=== PATIENT | female | born 1950 | race Caucasian/White ===

== ENCOUNTER 2020-05-13 14:44 | Outpatient (REF) | payer MEDICARE, OTHER, SELFPAY ==
--- NOTE | 2020-05-13 15:01 | XR_ITS ---
EXAMINATION: XR CHEST CLINICAL INFORMATION: Emphysema. COMPARISON: Chest x-ray 06/04/2018. CT scan of the chest 05/06/2019. TECHNIQUE: PA and lateral views of the chest were obtained. FINDINGS: The lung rice are well expanded and appear clear bilaterally. The cardiac silhouette is normal. There are no pleural effusions or pneumothorax. The central pulmonary vasculature is normal. The hilar regions appear normal. There are cholecystectomy clips, new compared to prior imaging. There are no acute osseous findings. There are spondylitic changes in the thoracic spine. IMPRESSION: 1. There are no acute cardiopulmonary findings.
== END 2020-05-13 14:45 | disposition home or self-care (01) ==
LOC: HO.XRAY 14:44
PROVIDERS: PCP Internal Medicine; Visit Provider Internal Medicine
DX: J43.9 Emphysema, unspecified (principal)
CPT/HCPCS: 71046

== ENCOUNTER → 2020-05-24 09:31 | Outpatient (BNVA) | payer MEDICARE, OTHER, SELFPAY | PROVIDERS: PCP Internal Medicine; Referring Provider Internal Medicine; Visit Provider Nurse Practitioner Family | DX: I25.10 Atherosclerotic heart disease of native coronary artery without angina pectoris (principal); I10 Essential (primary) hypertension; E78.5 Hyperlipidemia, unspecified; Z79.82 Long term (current) use of aspirin; Z79.899 Other long term (current) drug therapy; Z95.5 Presence of coronary angioplasty implant and graft | CPT/HCPCS: 99214 ==

== ENCOUNTER 2020-05-26 07:18 | Outpatient (REF) | payer MEDICARE, OTHER, SELFPAY ==
--- NOTE | 2020-05-26 07:23 | CT_ITS ---
EXAMINATION: CT CHEST WITHOUT CONTRAST CLINICAL INFORMATION: Solitary pulmonary nodule COMPARISON: None TECHNIQUE: Multidetector volumetric CT imaging of the chest was done. Axial MIP volume rendering provided. Sagittal and coronal reformatted images were obtained. This CT examination was performed using dose optimization techniques as appropriate, variously including the following: *Automated exposure control *Adjustment of mA and/or kV according to patient size (this includes techniques or standardized protocols for targeted exams where dose is matched to indication/reason for exam; i.e. 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 There are bilateral small pulmonary nodules. The largest nodule in the right middle lobe adjacent to the fissure measures 9 mm on axial image 318/8. Previously it measured same size. Mild atelectatic changes are seen MEDIASTINUM: The heart size and the great vessels are normal caliber. Central trachea and the bronchi are widely patent. The thyroid lobes are symmetrical and normal. No abnormal size mediastinal or hilar lymph nodes seen. There is no pericardial effusion. There are coronary artery calcifications present. PLEURA: There is no pleural effusion. No pleural mass or thickening. AXILLA: There are no abnormal-sized axillary lymph nodes seen. The chest wall appears unremarkable. UPPER ABDOMEN: There is a 7 mm hypodensity right hepatic lobe along the diaphragm, image 49/4. No additional lesions seen. There is no intrahepatic ductal dilatation. Visualized spleen, pancreas and bilateral adrenal glands appear unremarkable. The gallbladder has been surgically removed. OSSEOUS STRUCTURES: There is mild ventral spondylosis throughout dorsal spine. No lytic or sclerotic process seen. IMPRESSION: 1. Stable pulmonary nodules with the largest nodule measuring 9 mm, right middle lobe adjacent to the fissure. No new nodules, mass or consolidation. 2. No abnormal mediastinal adenopathy. 3. The gallbladder has been surgically removed.
== END 2020-05-26 07:19 | disposition home or self-care (01) ==
LOC: HO.CT 07:18
PROVIDERS: PCP Internal Medicine; Visit Provider Surgery
DX: R91.1 Solitary pulmonary nodule (principal)
CPT/HCPCS: 71250

== ENCOUNTER → 2020-05-28 09:22 | Outpatient (BNVA) | payer MEDICARE, OTHER, SELFPAY | PROVIDERS: PCP Internal Medicine; Referring Provider Internal Medicine; Visit Provider Surgery | DX: R91.1 Solitary pulmonary nodule (principal); Z88.8 Allergy status to other drugs, medicaments and biological substances; Z79.82 Long term (current) use of aspirin; Z79.899 Other long term (current) drug therapy; Z87.891 Personal history of nicotine dependence | CPT/HCPCS: 99214 ==

== ENCOUNTER → 2020-06-09 15:40 | Outpatient (BNVA) | payer MEDICARE, OTHER, SELFPAY | PROVIDERS: PCP Internal Medicine; Visit Provider Internal Medicine | DX: R91.8 Other nonspecific abnormal finding of lung field (principal); R94.2 Abnormal results of pulmonary function studies; Z95.5 Presence of coronary angioplasty implant and graft | CPT/HCPCS: 99212 ==

== ENCOUNTER 2020-08-10 05:58 | Outpatient (REF) | payer MEDICARE, OTHER, SELFPAY ==
[2020-08-10 07:01] LABS: MANUAL DIFF FLAG NO
[2020-08-10 07:22] LABS: Basophils Percent Auto 0.6 % (0-2); Eosinophils Absolute Auto 0.2 X10*3/uL (0.0-0.4); Eosinophils Percent Auto 2.7 % (0-4); Hematocrit 41.3 % (37-47); Hemoglobin 13.6 g/dl (12.0-16.0); Lymphocytes Absolute Auto 2.9 X10*3/uL (1.2-4.9); Lymphocytes Percent Auto 45.1 % (20-40); Mean Corpuscular HGB Conc 32.9 g/dl (31.0-35.0); Mean Corpuscular Hemoglobin 31.1 pg (27.0-33.0); Mean Corpuscular Volume 94.3 fL (80-98); Mean Platelet Volume 11.5 fL (9.4-12.3); Monocytes Absolute Auto 0.6 X10*3/uL (0.1-1.2); Monocytes Percent Auto 8.8 % (2-11); Neutrophils Absolute Auto 2.7 X10*3/uL (2.0-8.3); Neutrophils Percent Auto 42.8 % (45-73); Platelet Count 191 X10*3/uL (160-400); Red Blood Count 4.38 X10*6/uL (4.20-5.50); Red Cell Distribution Width 12.7 % (11.0-16.0); White Blood Count 6.4 X10*3/uL (4.8-10.8)
[2020-08-10 07:44] LABS: Alanine Aminotransferase 17 U/L (0-31); Albumin Level 4.5 g/dL (3.5-5.0); Alkaline Phosphatase 74 U/L (39-117); Anion Gap 12 (12-20); Aspartate Amino Transferase 18 U/L (5-31); Bilirubin Total 2.1 mg/dL (0.0-1.0); Blood Urea Nitrogen 20 mg/dL (9-16); Calcium 9.5 mg/dL (8.4-10.2); Carbon Dioxide 31 mmol/L (22-29); Chloride 104 mmol/L (96-108); Cholesterol 148 mg/dL; Estimated Glomerular Filt Rate 50; Glucose Random 96 mg/dL (60-115); HDL Cholesterol 59 mg/dL; LDL Cholesterol Calculated 77 mg/dl; Sodium 142 mmol/L (135-145); Total Protein 6.8 g/dL (6.5-8.0); Triglycerides 62 mg/dL
[2020-08-10 07:49] LABS: Free T4 (Free Thyroxine) 0.94 ng/dL (0.71-1.85); Thyroid Stimulating Hormone 3.11 uIU/mL (0.32-4.0); Vitamin D 25-OH Total 49.8 ng/mL (>30)
[2020-08-10 08:23] LABS: Folate > 20.0 ng/mL (> or = 4.0); Vitamin B12 > 2000 pg/mL (200-900)
== END 2020-08-10 05:59 | disposition home or self-care (01) ==
LOC: HO.LAB 05:58
PROVIDERS: Visit Provider Internal Medicine
DX: E78.00 Pure hypercholesterolemia, unspecified (principal); I25.10 Atherosclerotic heart disease of native coronary artery without angina pectoris; E78.5 Hyperlipidemia, unspecified; I10 Essential (primary) hypertension
CPT/HCPCS: 36415; 80053; 80061; 82306; 82607; 82746; 84439; 84443; 85025

== ENCOUNTER 2020-09-06 09:10 | Outpatient (REF) | payer MEDICARE, OTHER, SELFPAY ==
--- NOTE | 2020-09-06 09:16 | US_ITS ---
EXAMINATION: US ABDOMEN COMPLETE CLINICAL INFORMATION: Elevated bilirubin. COMPARISON: Previous abdominal ultrasound August [address] most recent May 2020 TECHNIQUE: Real-time imaging of the abdominal viscera. FINDINGS: PANCREAS: The head and body the pancreas are normal. The tail is not well visualized due to bowel gas. ABDOMINAL AORTA: The proximal, mid, and distal segments are normal in caliber. There is evidence of atherosclerotic disease with vessel wall calcification of the distal abdominal aorta. INFERIOR VENA CAVA: Visualized portions are normal. LIVER: Liver echotexture is slightly increased. The liver is normal in size and contour.. No focal hepatic lesion. There is no intrahepatic biliary duct dilatation seen. GALLBLADDER: Normal. The gallbladder is physiologically distended without evidence of stones, sludge, polyps, wall thickening or pericholecystic fluid. COMMON BILE DUCT: Normal in caliber measuring 0.5 cm in diameter. RIGHT KIDNEY: Normal. No hydronephrosis. No renal calculi or focal parenchymal lesions. The kidney measures 10 cm in maximum dimension. LEFT KIDNEY: Normal. No hydronephrosis. No renal calculi or focal parenchymal lesions. The kidney measures 10 cm in maximum dimension. SPLEEN: Normal. The spleen measures 10 cm in maximum dimension. FREE FLUID: None. US/US abdomen complete IMPRESSION: Slightly echogenic liver. The liver does not appear low in attenuation to suggest fatty infiltration on previous chest CT May 2020 and hepatocellular disease should be considered.. Atherosclerotic disease. Limited visualization of the tail the pancreas.
== END 2020-09-06 09:11 | disposition home or self-care (01) ==
LOC: HO.US 09:10
PROVIDERS: PCP Internal Medicine; Visit Provider Internal Medicine
DX: E80.6 Other disorders of bilirubin metabolism (principal)
CPT/HCPCS: 76700

== ENCOUNTER → 2020-10-25 14:44 | Outpatient (BNVA) | payer MEDICARE, OTHER, SELFPAY | PROVIDERS: PCP Internal Medicine; Visit Provider Physician Assistant | DX: Z13.89 Encounter for screening for other disorder (principal) | CPT/HCPCS: Q3014 ==

== ENCOUNTER → 2020-12-09 14:18 | Outpatient (BNVA) | payer MEDICARE, OTHER, SELFPAY | PROVIDERS: PCP Internal Medicine; Referring Provider Internal Medicine; Visit Provider Internal Medicine Cardiovascular Disease | DX: I25.10 Atherosclerotic heart disease of native coronary artery without angina pectoris (principal); I10 Essential (primary) hypertension; E78.5 Hyperlipidemia, unspecified; E78.00 Pure hypercholesterolemia, unspecified; I48.0 Paroxysmal atrial fibrillation; Z88.8 Allergy status to other drugs, medicaments and biological substances; Z87.891 Personal history of nicotine dependence; Z79.899 Other long term (current) drug therapy | CPT/HCPCS: 99212 ==

== ENCOUNTER 2021-04-22 07:52 | Day surgery (SDC) | payer MEDICARE, OTHER, SELFPAY ==
[2021-04-18 14:05] VITALS: BMI 28.6
--- NOTE | 2021-04-21 09:05 | HO.ANESPROP2 ---
Documented by User: Lizzette Hare NP 04/21/21 09:07 HPI - Anesthesia Eval Consult details Narrative: 71yo F for Upper Endoscopy and Colonoscopy PMFSH Active Problems Active Problems: All Active Problems (Updated 04/18/21 @ 13:52 by Lynn Alonso, WIL) Pulmonary nodule (Acute) GERD (gastroesophageal reflux disease) (Acute) Annual physical exam (Acute) Colon cancer screening (Acute) Right lower quadrant abdominal pain (Acute) Hyperbilirubinemia (Acute) Acid reflux (Acute) Anxiety (Acute) Stented coronary artery (Acute) HLD (hyperlipidemia) (Acute) HTN (hypertension) (Acute) PVD (peripheral vascular disease) (Acute) CAD (coronary artery disease) (Acute) Past Medical History Medical History Acid reflux Anxiety CAD (coronary artery disease) HLD (hyperlipidemia) HTN (hypertension) Paroxysmal atrial fibrillation PVD (peripheral vascular disease) Family History Family History Father Sudden cardiac CVD (cardiovascular disease) Mother Stroke HTN (hypertension) Myocardial infarction Surgical History Surgical History Hx of breast biopsy (~2008) Hx of cardiac cath Hx of cholecystectomy (~2018) Hx of colonoscopy Stented coronary artery Social History Social History Household Members: Spouse Alcohol intake: current Alcohol intake frequency: holidays/special occasions only Alcohol type: wine Patient Tobacco Use Status: Former Tobacco user Tobacco use type: Cigarette Use of substances other than those prescribed or required for medical reasons: No Are you DNR?: No Advance Directives: No (unknown) Advance Directives Information Provided: No Current occupational status: retired Meds Allergies Allergy/AdvReac Type Severity Reaction Status Date / Time lisinopril [LISINOPRIL] AdvReac Intermediate COUGH Verified 10/25/20 14:45 Mgibnmo-Afv-Ucn Reductase AdvReac Intermediate MUSCLE Verified 10/25/20 14:45 Inhibitor ACHES [[id number] REDUCTASE INHIBITOR] ticagrelor [Brilinta] AdvReac Intermediate Shortness Verified 04/18/21 14:00 of Breath Home Medications Medication Instructions Recorded Confirmed Last Taken Type aspirin 81 mg tablet,delayed 81 mg PO DAILY 05/24/20 04/18/21 Unknown History release (Adult Low Dose Aspirin) nitroglycerin 0.4 mg sublingual 0.4 mg SUBLINGUAL PER PKG DIR PRN 05/24/20 04/18/21 Unknown History tablet cholecalciferol (vitamin D3) 50 50 mcg PO DAILY 06/09/20 04/18/21 Unknown History mcg (2,000 unit) capsule krill oil 500 mg capsule 500 mg PO DAILY cap 06/09/20 04/18/21 Unknown History multivitamin (Daily Multi-Vitamin) 1 tab PO DAILY 06/09/20 04/18/21 Unknown History alprazolam 0.5 mg tablet 0.5 mg PO BID PRN tab 12/09/20 04/18/21 Unknown History Exam Exam Date and Time: April 21, 2021 0905 Height,Weight and Vital Signs: Height 5 ft 7 in Weight 83 kg Pertinent Lab Results Pertinent Lab Results: Laboratory Tests 08/10/20 08/10/20 06:08 06:08 WBC 6.4 Hgb 13.6 Hct 41.3 Plt Count 191 Sodium 142 Potassium 5.0 Chloride 104 Carbon Dioxide 31 H BUN 20 H Creatinine 1.08 Narrative Narrative: Per cardiac visit: Coronary artery disease status post drug-eluting stent to RCA in July 2018 with recent cardiac catheterization showing patent stents and nonobstructive CAD.? Her symptoms were suspected to be related to anxiety as she says. Assessment and Plan Assessment Anesthesia Assessment: Chart Reviewed Documented by User: Anny Rosado MD 04/22/21 08:26 [facility] Past Medical History Medical History Acid reflux Anxiety CAD (coronary artery disease) HLD (hyperlipidemia) HTN (hypertension) Paroxysmal atrial fibrillation PVD (peripheral vascular disease) Family History Family History Father Sudden cardiac CVD (cardiovascular disease) Mother Stroke HTN (hypertension) Myocardial infarction Surgical History Surgical History Hx of breast biopsy (~2008) Hx of cardiac cath Hx of cholecystectomy (~2019) Hx of colonoscopy Stented coronary artery Social History Social History Household Members: Spouse Alcohol intake: current Alcohol intake frequency: holidays/special occasions only Alcohol type: wine Patient Tobacco Use Status: Former Tobacco user Tobacco use type: Cigarette Use of substances other than those prescribed or required for medical reasons: No Are you DNR?: No Advance Directives: No (unknown) Advance Directives Information Provided: No Current occupational status: retired Meds Allergies Allergy/AdvReac Type Severity Reaction Status Date / Time lisinopril [LISINOPRIL] AdvReac Intermediate COUGH Verified 10/25/20 14:45 Izlnafv-Dwj-Rmq Reductase AdvReac Intermediate MUSCLE Verified 10/25/20 14:45 Inhibitor ACHES [[id number] REDUCTASE INHIBITOR] ticagrelor [Brilinta] AdvReac Intermediate Shortness Verified 04/18/21 14:00 of Breath Home Medications Medication Instructions Recorded Confirmed Last Taken Type aspirin 81 mg tablet,delayed 81 mg PO DAILY 05/24/20 04/18/21 Unknown History release (Adult Low Dose Aspirin) nitroglycerin 0.4 mg sublingual 0.4 mg SUBLINGUAL PER PKG DIR PRN 05/24/20 04/18/21 Unknown History tablet cholecalciferol (vitamin D3) 50 50 mcg PO DAILY 06/09/20 04/18/21 Unknown History mcg (2,000 unit) capsule krill oil 500 mg capsule 500 mg PO DAILY cap 06/09/20 04/18/21 Unknown History multivitamin (Daily Multi-Vitamin) 1 tab PO DAILY 06/09/20 04/18/21 Unknown History alprazolam 0.5 mg tablet 0.5 mg PO BID PRN tab 12/09/20 04/18/21 Unknown History
[2021-04-22 08:08] VITALS: BP 135/72; PULSE 72; RESP 16; TEMP 36.1; O2SAT 97
[2021-04-22] MEDS: Lactated Ringers 1,000 ML 100 ML IVCONT (08:25)
--- NOTE | 2021-04-22 08:28 | P.CONAN_ITS ---
[facility] Active Problems Active Problems: All Active Problems (Updated 04/18/21 @ 13:52 by Lynn barrera RN) Pulmonary nodule (Acute) GERD (gastroesophageal reflux disease) (Acute) Annual physical exam (Acute) Colon cancer screening (Acute) Right lower quadrant abdominal pain (Acute) Hyperbilirubinemia (Acute) Acid reflux (Acute) Anxiety (Acute) Stented coronary artery (Acute) HLD (hyperlipidemia) (Acute) HTN (hypertension) (Acute) PVD (peripheral vascular disease) (Acute) CAD (coronary artery disease) (Acute) Past Medical History Medical History Acid reflux Anxiety CAD (coronary artery disease) HLD (hyperlipidemia) HTN (hypertension) Paroxysmal atrial fibrillation PVD (peripheral vascular disease) Functional capacity: independent ambulation Patient : No Family History Family History Father Sudden cardiac CVD (cardiovascular disease) Mother Stroke HTN (hypertension) Myocardial infarction Family history of problems with anesthesia: No Surgical History Surgical History Hx of breast biopsy (~2008) Hx of cardiac cath Hx of cholecystectomy (~2018) Hx of colonoscopy Stented coronary artery History of Problems with Anesthesia: No Social History Social History Household Members: Spouse Alcohol intake: current Alcohol intake frequency: holidays/special occasions only Alcohol type: wine Patient Tobacco Use Status: Former Tobacco user Tobacco use type: Cigarette Use of substances other than those prescribed or required for medical reasons: No Are you DNR?: No Advance Directives: No (unknown) Advance Directives Information Provided: No Current occupational status: retired Meds Allergies Allergy/AdvReac Type Severity Reaction Status Date / Time lisinopril [LISINOPRIL] AdvReac Intermediate COUGH Verified 10/25/20 14:45 Ulqigxk-Uei-Dqr Reductase AdvReac Intermediate MUSCLE Verified 10/25/20 14:45 Inhibitor ACHES [[id number] REDUCTASE INHIBITOR] ticagrelor [Brilinta] AdvReac Intermediate Shortness Verified 04/18/21 14:00 of Breath Active Medications: Current Medications Generic Name Dose Route Start Last Admin Trade Name Hugo PRN Reason Stop Dose Admin Lactated Ringer's 1,000 mls @ 100 mls/hr 04/22/21 08:30 04/22/21 08:25 Lr IVCONT 100 mls/hr .Q10H RADHA Administration Home Medications Medication Instructions Recorded Confirmed Last Taken Type aspirin 81 mg tablet,delayed 81 mg PO DAILY 05/24/20 04/18/21 Unknown History release (Adult Low Dose Aspirin) nitroglycerin 0.4 mg sublingual 0.4 mg SUBLINGUAL PER PKG DIR PRN 05/24/20 04/18/21 Unknown History tablet cholecalciferol (vitamin D3) 50 50 mcg PO DAILY 06/09/20 04/18/21 Unknown History mcg (2,000 unit) capsule krill oil 500 mg capsule 500 mg PO DAILY cap 06/09/20 04/18/21 Unknown History multivitamin (Daily Multi-Vitamin) 1 tab PO DAILY 06/09/20 04/18/21 Unknown History alprazolam 0.5 mg tablet 0.5 mg PO BID PRN tab 12/09/20 04/18/21 Unknown History Exam Exam Date and Time: April 22, 2021 0828 Height,Weight and Vital Signs: Height 5 ft 7 in Weight 83 kg Last Vital Signs Temp 97.0 F 04/22/21 08:08 Pulse 72 04/22/21 08:08 Resp 16 04/22/21 08:08 BP 135/72 04/22/21 08:08 Pulse Ox 97 04/22/21 08:08 Airway Mallampati Class: II TM Dist: >3cm Heart: RRR Lungs: CTA Assessment and Plan Final Anesthetic Review Family History of Problems with Anesthesia: No History of Problems with Anesthesia: No
--- NOTE | 2021-04-22 08:35 | MHC.SHP ---
Pre-Procedural Eval Section A Date of Service: 04/22/21 The patient is an INPATIENT: No The History & Physical has been completed within 30 days and I have reviewed it.: No Section B Chief Complaint: Colon cancer Screening, GERD Details of Present Illness: Colon cancer screening, GERD, abdominal pain Relevant Family History (Specify if Yes): No Relevant Social History: Tobacco Use (former smoker) Present Medications: see Short Stay Collaborative assessment Medical History: Significant History (Acid reflux Anxiety CAD (coronary artery disease) GERD (gastroesophageal reflux disease) HLD (hyperlipidemia) HTN (hypertension) Paroxysmal atrial fibrillation PVD (peripheral vascular disease)) History of Previous Operations: Relevant previous surgery/procedure and date(s) (Hx of breast biopsy (~2008) Hx of cardiac cath Hx of cholecystectomy (~2018) Hx of colonoscopy S/P cardiac cath Stented coronary artery) Allergies: Allergies Allergy/AdvReac Type Severity Reaction Status Date / Time lisinopril [LISINOPRIL] AdvReac Intermediate COUGH Verified 10/25/20 14:45 Hkwilth-Qwq-Jsu Reductase AdvReac Intermediate MUSCLE Verified 10/25/20 14:45 Inhibitor ACHES [[id number] REDUCTASE INHIBITOR] ticagrelor [Brilinta] AdvReac Intermediate Shortness Verified 04/18/21 14:00 of Breath Review of Systems Sugical H&P ROS: Negative: Constitution, Cardiovascular and Respiratory and Yes, Specify: Gastrointestinal (GERD, abdominal pain) Exam Surgical H&P Exam: Normal: Heart, Normal: Lungs, Normal: Extremities and Normal: Abdomen Plan Diagnosis/Plan: Unchanged I have reviewed the history and physical and performed a pertinent physical examination on my patient. No changes have occurred unless specified.
--- NOTE | 2021-04-22 08:37 | PM.OP ---
Brief Operative Note Date of Service: 04/22/21 Pre-op diagnosis: Colon cancer screening, GERD, abdominal pain Post-op diagnosis: other (Diverticulosis, hemorrhoids, gastritis, GERD, gastric polyps) Procedure: FLEXIBLE TRANSORAL UPPER GASTROINTESTINAL ENDOSCOPY WITH BIOPSIES AND COLONOSCOPY TILL CECUM UPPER ENDOSCOPY Consent: Indications for the procedure and potential complications of bleeding, perforation, reaction to medications and missed diagnosis were discussed with the patient and informed consent was obtained. Instrument: Olympus GIF H 190 mid size upper endoscope Monitoring: Vital signs and clinical assessment, continuous EKG monitoring, Pulse oximetry, Carbon Dioxide monitoring and blood pressure monitoring were done throughout the procedure. Procedure: The patient was placed in the left lateral decubitis position and pre-procedure medications were administered and a bite block was placed. The endoscope was inserted into the mouth and advanced under direct vision to the third part of duodenum. A careful inspection was made as the upper endoscope was withdrawn including a retroflexed examination of the proximal stomach; Findings and interventions are described below. Findings: Larynx: Normal Esophagus: Mildly tortuous esophagus with increased tertiary contractions without stricture or ring. GE junction at 35 cms.. No esophagitis or Mix's. Stomach: Multiple 5 to 10 mm benign appearing polyps in the gastric body and fundus - biopsied. Mild gastric erythema. Biopsies were obtained. Grade 2 flap valve on retroflexed examination of the cardia. Duodenum: Normal bulb and descending duodenum. Biopsies were obtained from 3rd part of the duodenum to check for celiac sprue. Intervention: Biopsies as noted above COLONOSCOPY PROCEDURE NOTE Consent: Indications for the procedure and potential complications of bleeding, perforation, reaction to medications and missed diagnosis were discussed with the patient and informed consent was obtained. Instrument: Olympus PCF H 190 L variable stiffness pediatric colonoscope Monitoring: Vital signs and clinical assessment, intermittent blood pressure monitoring, continuous EKG monitoring, Pulse oximetry and Carbon Dioxide monitoring were done throughout the procedure. Colon withdrawl time was 14 minutes. Procedure: The patient was placed in the left lateral decubitis position and pre-procedure medications were administered. After a digital rectal examination of the ano-rectum, the video colonoscope was inserted into the rectum and advanced through the colon to the cecum. The colonoscope was slowly withdrawn in a retrograde panoramic fashion and the colon mucosa was carefully examined including a retroflexed view of the rectum. Findings and interventions are described below. Procedure Difficulty: : Without difficulty Findings: Terminal Ileum: Not evaluated Cecum: Normal Ascending Colon: Normal Transverse Colon: Normal Descending Colon: Moderate diverticulosis Sigmoid Colon: Moderate diverticulosis Rectum: Normal Ano-rectum: Moderate internal hemorrhoids and perianal skin tags Colon preparation: Good Impression and Post Procedure Diagnosis: Endoscopy Findings: ESOPHAGUS: No esophagitis or Mix's STOMACH: Gastritis and multiple gastric polyps DUODENUM: Normal - biopsied to check for celiac sprue Colonoscopy Findings: No polyps were detected Moderate diverticulosis seen in the left colon Moderate hemorrhoids on retroflexed exam. Plan: Await pathology results Patient has an appointment on 05/05/21 in the GI Clinic with TORO Cueva . Repeat Colonoscopy in 10 years. Above findings were reviewed with the patient and GERD, Gastric Polyps and diverticulosis handouts were given in the discharge area Surgeon: Merari Carrasco MD Anesthesia: MAC (Braxton Mccabe CRNA) Was an Medical Recruiter used for this Procedure?: No Medical Recruiter: Whitney Rowland Estimated blood loss (mL): 0 Pathology: other ( A. small bowel biopsy, R/O Celiac B. gastric antrum, R/O H. pylori C. gastric polyps) Condition: stable Disposition: PACU
--- NOTE | 2021-04-22 09:04 | P.OP_ITS ---
Operative Note Operative Note Date of Service: 04/22/21 Narrative: Pre-op diagnosis:?Colon cancer screening, GERD, abdominal pain Post-op diagnosis:?other (Diverticulosis, hemorrhoids, gastritis, GERD, gastric polyps) Procedure:? FLEXIBLE TRANSORAL UPPER GASTROINTESTINAL ENDOSCOPY WITH BIOPSIES AND COLONOSCOPY TILL CECUM UPPER ENDOSCOPY Consent:?Indications for the procedure and potential complications of bleeding, perforation, reaction to medications and missed diagnosis were discussed with the patient and informed consent was obtained. Instrument:?Olympus GIF H 190 mid size upper endoscope Monitoring: Vital signs and clinical assessment, continuous EKG monitoring, Pulse oximetry, Carbon Dioxide monitoring and blood pressure monitoring were done throughout the procedure. Procedure:?The patient was placed in the left lateral decubitis position and pre-procedure medications were administered and a bite block was placed. The endoscope was inserted into the mouth and advanced under direct vision to the third part of duodenum. A careful inspection was made as the upper endoscope was withdrawn including a retroflexed examination of the proximal stomach; Findings and interventions are described below. Findings: Larynx:? Normal Esophagus:? Mildly tortuous esophagus with increased tertiary contractions without stricture or ring.??GE junction at 35 cms.. No esophagitis or Mix's. Stomach:?Multiple 5 to 10 mm benign appearing polyps in the gastric body and fundus - biopsied.? Mild gastric erythema. Biopsies were obtained. Grade 2 flap valve on retroflexed examination of the cardia. Duodenum:?Normal bulb and descending duodenum.? Biopsies were obtained from 3rd part of the duodenum to check for celiac sprue. Intervention:?Biopsies as noted above COLONOSCOPY PROCEDURE NOTE Consent:?Indications for the procedure and potential complications of bleeding, perforation, reaction to medications and missed diagnosis were discussed with the patient and informed consent was obtained. Instrument:?Olympus PCF H 190 L variable stiffness pediatric colonoscope Monitoring:?Vital signs and clinical assessment, intermittent blood pressure monitoring, continuous EKG monitoring, Pulse oximetry and Carbon Dioxide monitoring were done throughout the procedure. Colon withdrawl time was 14 minutes. Procedure:?The patient was placed in the left lateral decubitis position and pre-procedure medications were administered. After a digital rectal examination of the ano-rectum, the video colonoscope was inserted into the rectum and advanced through the colon to the cecum. The colonoscope was slowly withdrawn in a retrograde panoramic fashion and the colon mucosa was carefully examined including a retroflexed view of the rectum. Findings and interventions are described below. Procedure Difficulty:?: Without difficulty Findings: Terminal Ileum: Not evaluated Cecum:? Normal Ascending Colon:??Normal Transverse Colon:??Normal Descending Colon:? Moderate diverticulosis Sigmoid Colon:??Moderate diverticulosis Rectum:??Normal Ano-rectum:??Moderate internal hemorrhoids and perianal skin tags Colon preparation:? Good? Impression and Post Procedure Diagnosis: Endoscopy Findings: ESOPHAGUS: No esophagitis or Mix's STOMACH: Gastritis and multiple gastric polyps DUODENUM: Normal - biopsied to check for celiac sprue Colonoscopy Findings: No polyps were detected Moderate diverticulosis seen in the left colon Moderate hemorrhoids on retroflexed exam. Plan: Await pathology results Patient has an appointment on 05/05/21 in the GI Clinic with TORO Cueva . Repeat Colonoscopy in 10 years. Above findings were reviewed with the patient and GERD, Gastric Polyps and diverticulosis handouts were given in the discharge area Surgeon:?Merari Carrasco MD Anesthesia:?MAC (Braxton Mccabe CRNA) Was an Veneer Redrier used for this Procedure?:?No Veneer Redrier:?Whitney Rowland Estimated blood loss (mL):?0 Pathology:?other ( A. small bowel biopsy, R/O Celiac? B. gastric antrum, R/O H. pylori? C. gastric polyps) Condition:?stable Disposition:?PACU
[2021-04-22 09:45] VITALS: BP 112/52; PULSE 63; RESP 15; TEMP 36.6; O2SAT 98
[2021-04-22 10:00] VITALS: BP 120/58; PULSE 62; RESP 16; TEMP 36.6; O2SAT 99
--- NOTE | 2021-04-22 12:03 | HO.POSTANES ---
Post Anesthesia Evaluation Post Anesthesia Evaluation Vital Signs: Vital Signs Temp Pulse Resp BP Pulse Ox 04/22/21 10:00 97.8 F 62 16 120/58 L 99 04/22/21 09:45 97.8 F 63 15 112/52 L 98 04/22/21 08:08 97.0 F 72 16 135/72 97 Anesthesia: Monitored Mental Status: Awake Pain Control: Satisfactory Nausea/Vomiting: None Hydration: Adequate Anesthesia-Related Issues: No Anes. Related Issues
== END 2021-04-22 10:16 | disposition home or self-care (01) ==
PROVIDERS: PCP Internal Medicine; Visit Provider Internal Medicine Gastroenterology
PROC: (CPT 43239; principal; 2021-04-22 09:00)
DX: Z12.11 Encounter for screening for malignant neoplasm of colon (principal); K57.30 Diverticulosis of large intestine without perforation or abscess without bleeding; K64.8 Other hemorrhoids; K64.4 Residual hemorrhoidal skin tags; K21.9 Gastro-esophageal reflux disease without esophagitis; K29.50 Unspecified chronic gastritis without bleeding; K31.7 Polyp of stomach and duodenum; K22.8 Other specified diseases of esophagus; Z87.891 Personal history of nicotine dependence; I25.10 Atherosclerotic heart disease of native coronary artery without angina pectoris; Z98.61 Coronary angioplasty status; I10 Essential (primary) hypertension; I73.9 Peripheral vascular disease, unspecified; I48.0 Paroxysmal atrial fibrillation; Z79.01 Long term (current) use of anticoagulants; Z79.82 Long term (current) use of aspirin; Z79.899 Other long term (current) drug therapy; Z90.49 Acquired absence of other specified parts of digestive tract
CPT/HCPCS: 43239; G0121; 88305; 88342

== ENCOUNTER 2021-05-11 07:26 | Outpatient (REF) | payer MEDICARE, OTHER, SELFPAY ==
--- NOTE | ~2021-05-11 | CT_ITS ---
EXAMINATION: CT CHEST WITHOUT CONTRAST CLINICAL INFORMATION: Follow-up pulmonary nodules COMPARISON: Previous chest CT scans most recent 05/25/2020 TECHNIQUE: Multidetector volumetric CT imaging of the chest was done. Axial MIP volume rendering provided. Sagittal and coronal reformatted images were obtained. This CT examination was performed using dose optimization techniques as appropriate, variously including the following: *Automated exposure control *Adjustment of mA and/or kV according to patient size (this includes techniques or standardized protocols for targeted exams where dose is matched to indication/reason for exam; i.e. extremities or head) *Use of iterative reconstruction technique DLP: 144 mGy-cm FINDINGS: LUNGS: There is mild biapical pleural and parenchymal scarring. There is a 4 mm left apical nodule probably related to pleural parenchymal scarring axial image 41 series 7 that is stable. There is a 6 x 8 mm peripheral or subpleural right middle lobe nodule adjacent to the minor fissure axial image 235 series 7 that is stable. There is a 3 mm peripheral or subpleural right lower lobe nodule axial image 237 series 7 that is stable. No new pulmonary nodule is seen. MEDIASTINUM: There is mild coronary artery calcification. The mediastinum is otherwise normal. PLEURA: There is no pleural effusion. No pleural mass or thickening. AXILLA: No lymphadenopathy. UPPER ABDOMEN: The gallbladder has been removed. OSSEOUS STRUCTURES: There are degenerative changes of the spine. CT/CT chest wo con IMPRESSION: Stable pulmonary nodules. Mild coronary artery calcification.
== END 2021-05-11 07:27 | disposition home or self-care (01) ==
LOC: HO.CT 07:26
PROVIDERS: Visit Provider Surgery
DX: R91.1 Solitary pulmonary nodule (principal)
CPT/HCPCS: 71250

== ENCOUNTER 2021-05-18 06:26 | Outpatient (REF) | payer MEDICARE, OTHER, SELFPAY ==
[2021-05-18 06:32] LABS: MANUAL DIFF FLAG NO
[2021-05-18 07:31] LABS: Basophils Absolute Auto 0.1 X10*3/uL (0.0-0.2); Basophils Percent Auto 0.8 % (0-2); Eosinophils Absolute Auto 0.2 X10*3/uL (0.0-0.4); Eosinophils Percent Auto 3.7 % (0-4); Hematocrit 37.8 % (37-47); Hemoglobin 12.9 g/dl (12.0-16.0); Imm Gran Abs Auto 0.01 X10*3/uL (0.00-0.03); Imm Gran Pct Auto 0.2 % (0.0-0.4); Lymphocytes Absolute Auto 2.5 X10*3/uL (1.2-4.9); Mean Corpuscular HGB Conc 34.1 g/dl (31.0-35.0); Mean Corpuscular Hemoglobin 31.8 pg (27.0-33.0); Mean Corpuscular Volume 93.1 fL (80-98); Mean Platelet Volume 11.5 fL (9.4-12.3); Monocytes Absolute Auto 0.5 X10*3/uL (0.1-1.2); Monocytes Percent Auto 7.8 % (2-11); Neutrophils Absolute Auto 3.1 X10*3/uL (2.0-8.3); Neutrophils Percent Auto 48.5 % (45-73); Platelet Count 168 X10*3/uL (160-400); Red Blood Count 4.06 X10*6/uL (4.20-5.50); Red Cell Distribution Width 12.7 % (11.0-16.0); White Blood Count 6.4 X10*3/uL (4.8-10.8)
[2021-05-18 07:48] LABS: B Type Natriuretic Peptide 185 pg/mL (<100)
[2021-05-18 08:03] LABS: Alanine Aminotransferase 16 U/L (0-31); Albumin Level 4.2 g/dL (3.5-5.0); Alkaline Phosphatase 66 U/L (39-117); Anion Gap 9 (12-20); Aspartate Amino Transferase 20 U/L (5-31); Bilirubin Total 1.1 mg/dL (0.0-1.0); Blood Urea Nitrogen 11 mg/dL (9-16); Calcium 9.5 mg/dL (8.4-10.2); Carbon Dioxide 31 mmol/L (22-29); Chloride 107 mmol/L (96-108); Cholesterol 109 mg/dL; Estimated Glomerular Filt Rate > 60; Glucose Random 104 mg/dL (60-115); HDL Cholesterol 53 mg/dL; LDL Cholesterol Calculated 45 mg/dl; Potassium 4.5 mmol/L (3.3-5.1); Sodium 142 mmol/L (135-145); Total Protein 6.4 g/dL (6.5-8.0); Triglycerides 55 mg/dL
[2021-05-18 08:10] LABS: Free T4 (Free Thyroxine) 0.92 ng/dL (0.71-1.85); Thyroid Stimulating Hormone 2.69 uIU/mL (0.32-4.0)
[2021-05-18 09:28] LABS: Vitamin B12 585 pg/mL (200-900)
== END 2021-05-18 06:27 | disposition home or self-care (01) ==
LOC: HO.LAB 06:26
PROVIDERS: PCP Internal Medicine; Visit Provider Internal Medicine
DX: E78.00 Pure hypercholesterolemia, unspecified (principal)
CPT/HCPCS: 36415; 80053; 80061; 82306; 82607; 82746; 83880; 84439; 84443; 85025

== ENCOUNTER → 2021-05-20 09:07 | Outpatient (BNVA) | payer MEDICARE, OTHER, SELFPAY | PROVIDERS: PCP Internal Medicine; Visit Provider Surgery | DX: R91.1 Solitary pulmonary nodule (principal); J43.9 Emphysema, unspecified; Z79.899 Other long term (current) drug therapy; Z87.891 Personal history of nicotine dependence | CPT/HCPCS: 99212 ==

== ENCOUNTER → 2021-06-07 12:52 | Outpatient (BNVA) | payer MEDICARE, OTHER, SELFPAY | PROVIDERS: PCP Internal Medicine; Referring Provider Internal Medicine; Visit Provider Internal Medicine Cardiovascular Disease | DX: I25.10 Atherosclerotic heart disease of native coronary artery without angina pectoris (principal) | CPT/HCPCS: 99212 ==

== ENCOUNTER 2021-06-14 07:56 | Outpatient (REF) | payer MEDICARE, OTHER, SELFPAY ==
--- NOTE | 2021-06-14 13:51 | PFT_ITS ---
INDICATION: Dyspnea. SPIROMETRY: The FEV1 to FVC of 82% with an FEV1 of 2.65 L which is 104% predicted and FVC of 3.25 L which is 96% predicted. Bronchodilators were not used since the patient has had adverse reactions in the past to albuterol. Maximum voluntary ventilation 126% predicted. LUNG VOLUMES: Total lung capacity 103% predicted. DIFFUSION CAPACITY: DLCO 52% predicted. COMPARISONS: PFTs from 2020. IMPRESSION: No obstructive nor restrictive ventilatory defects. Bronchodilators were not used. Normal maximal voluntary ventilation. Lung volumes are normal except for decrease in the expiratory reserve volume. In addition to that, there is some moderate diffusion impairment. When compared to 2020, there is a trend decrease in the FVC. No significant change in the FEV1, trend increase in the total lung capacity, and a trend decrease in the diffusion capacity. Clinical correlation warranted. MD HELEN Alvarado/MODL / [id number]
== END 2021-06-14 07:57 | disposition home or self-care (01) ==
LOC: HO.RESP 07:56
PROVIDERS: PCP Internal Medicine; Visit Provider Surgery
DX: R91.1 Solitary pulmonary nodule (principal)
CPT/HCPCS: 94010; 94727; 94729

== ENCOUNTER → 2021-06-15 08:51 | Outpatient (BNVA) | payer MEDICARE, OTHER, SELFPAY | PROVIDERS: PCP Internal Medicine; Visit Provider Internal Medicine Pulmonary Disease | DX: J43.9 Emphysema, unspecified (principal); R06.00 Dyspnea, unspecified | CPT/HCPCS: 99202 ==

== ENCOUNTER 2021-08-19 09:23 | Outpatient (REF) | payer MEDICARE, OTHER, SELFPAY ==
--- NOTE | ~2021-08-19 | XR_ITS ---
EXAMINATION: XR THORACOLUMBAR SPINE CLINICAL INFORMATION: Dorsal spine pain. COMPARISON: None TECHNIQUE: 3 views. FINDINGS: The vertebral alignment is normal. No intrinsic bony abnormality. The disc heights and neural foramina are well maintained. The endplates and posterior elements are normal. No fracture or subluxation. The surrounding prevertebral soft tissues are unremarkable. XR/XR thoracic spine 2V IMPRESSION: No compression fractures or subluxations are identified. The disc spaces are preserved. No endplate changes are seen. The prevertebral soft tissues are normal. The foramina are patent.
== END 2021-08-19 09:24 | disposition home or self-care (01) ==
LOC: HO.XRAY 09:23
PROVIDERS: PCP Internal Medicine; Visit Provider Internal Medicine
DX: M54.6 Pain in thoracic spine (principal)
CPT/HCPCS: 72070

== ENCOUNTER 2022-06-13 07:25 | Outpatient (REF) | payer MEDICARE, OTHER, SELFPAY ==
--- NOTE | ~2022-06-13 | CT_ITS ---
EXAMINATION: CT CHEST WITHOUT CONTRAST CLINICAL INFORMATION: Solitary pulmonary nodule follow up. COMPARISON: CT chest 05/11/2021 TECHNIQUE: Multidetector volumetric CT imaging of the chest was done. Axial MIP volume rendering provided. Sagittal and coronal reformatted images were obtained. This CT examination was performed using dose optimization techniques as appropriate, variously including the following: *Automated exposure control *Adjustment of mA and/or kV according to patient size (this includes techniques or standardized protocols for targeted exams where dose is matched to indication/reason for exam; i.e. extremities or head) *Use of iterative reconstruction technique DLP: 153 mGy-cm FINDINGS: LEHR STRIPPER: Well-expanded lungs. LUNGS: The lungs are expanded with bilateral apical parenchymal scarring and pleural thickening. A 5 mm nodule in the left lung apex (image 50/6), likely part of the apical parenchymal scarring, is again noted. It is stable. There is a 1 mm nodule in the left lower lobe superior segment (image 207/6), stable. A 2 mm nodule in the left upper lobe (axial image 186/6), is stable. A 1 cm nodule in the right middle lobe (axial image 253/6), previously measured 8 mm. It has stranding extending to the anterior pleural surface. A 3 mm nodule, pleural-based, right lower lobe medially (axial image 254/6), is stable. There is an ill-defined 3 mm ground-glass nodule in the left lower lobe laterally (axial image 356/6). No additional pulmonary nodules are seen. No acute consolidation or mass. MEDIASTINUM: The thyroid lobes are symmetric and normal. The central trachea and the bronchi are widely patent. Heart size and the great vessels are normal caliber. There is a 9 mm benign nodule in the pretracheal space. No additional pulmonary nodules are seen. No pericardial effusion. CORONARY ARTERY CALCIFICATION: Moderate coronary artery calcifications are present. PLEURA: There is no pleural effusion. No pleural mass or thickening. AXILLA: No abnormal axillary lymph nodes. The chest wall is unremarkable. UPPER ABDOMEN: The visualized liver, spleen, pancreas and bilateral adrenal glands are unremarkable. The gallbladder has been surgically removed. OSSEOUS STRUCTURES: Unremarkable. CT/CT chest wo IV con IMPRESSION: 1. Multiple bilateral pulmonary nodules are stable. The largest nodule in the right middle lobe measures 1 cm. It has stranding extending to the anterior pleural surface. 2. No abnormal mediastinal or axillary lymph nodes are seen. Fleischner guidelines were followed.
== END 2022-06-13 07:26 | disposition home or self-care (01) ==
LOC: HO.CT 07:25
PROVIDERS: PCP Internal Medicine; Visit Provider Surgery
DX: R91.1 Solitary pulmonary nodule (principal)
CPT/HCPCS: 71250

== ENCOUNTER → 2022-06-15 08:21 | Outpatient (BNVA) | payer MEDICARE, OTHER, SELFPAY | PROVIDERS: PCP Internal Medicine; Referring Provider Internal Medicine; Visit Provider Internal Medicine Cardiovascular Disease | DX: I25.10 Atherosclerotic heart disease of native coronary artery without angina pectoris (principal); I10 Essential (primary) hypertension | CPT/HCPCS: 93005; 99212 ==

== ENCOUNTER 2022-06-23 15:16 | Outpatient (REF) | payer MEDICARE, OTHER, SELFPAY ==
--- NOTE | 2022-06-23 17:35 | PFT_ITS ---
FLOWS: FEV1 101% of predicted at 2.56 L. FVC 93% of predicted at 3.11 L. FEV1 to FVC ratio of 0.82. No bronchodilator testing was performed as patient had a prior adverse reaction to bronchodilator. LUNG VOLUMES: Total lung capacity 89% of predicted at 4.91 L. Residual volume 71% of predicted at 1.70 L. Slow vital capacity 102% of predicted at 3.22 L. Expiratory reserve volume 41% of predicted at 0.33 L. Diffusion capacity is mildly decreased. IMPRESSION: No obstructive or restrictive ventilatory defect. No bronchodilator testing was performed as patient had a prior adverse reaction to bronchodilator. Decreased diffusion capacity suggests emphysema. Higinio Guthrie MD AP/MODL / [id number]
== END 2022-06-23 15:17 | disposition home or self-care (01) ==
LOC: HO.RESP 15:16
PROVIDERS: PCP Internal Medicine; Visit Provider Surgery
DX: Z01.811 Encounter for preprocedural respiratory examination (principal); R91.1 Solitary pulmonary nodule; Z87.891 Personal history of nicotine dependence; Z95.5 Presence of coronary angioplasty implant and graft
CPT/HCPCS: 94010; 94727; 94729; 99212

== ENCOUNTER → 2022-07-20 07:36 | Outpatient (REF) | payer MEDICARE, OTHER, SELFPAY ==
--- NOTE | ~2022-07-20 | NM_ITS ---
EXERCISE MYOCARDIAL PERFUSION STUDY INDICATION: Coronary artery disease, assess for ischemia TECHNIQUE: The patient was brought in for an exercise perfusion study on 07/20/2022. Patient performed exercise as per Oniel protocol and was injected 30 mCi of sestamibi once target heart rate was achieved. Images were obtained using the SPECT gamma camera interlaced with the gating device. Images were obtained in supine position. Resting perfusion study was performed on 07/21/2022. Patient was administered 30 mCi of sestamibi intravenously at rest. Images were then obtained in supine position. Images were processed with the software and compared side to side in short axis, horizontal long axis and vertical long axis views. Total DLP 85mGy-cm. FINDINGS: Raw images were reviewed. Possibly some motion artifact during stress. The stress perfusion study showed diminished tracer uptake in the distal part of anterior wall. There is improvement with CT attenuation correction which could indicate soft tissue attenuation artifact. The gated study shows normal LV systolic function with calculated LVEF of 66%. LV cavity is normal in size. The gated study shows normal wall thickening and contraction of segments. Resting study shows no significant perfusion abnormality. Gating at rest reveals normal wall motion with ejection fraction at 52%. The findings are consistent with [id number] reversible distal anterior defect but improving with CT attenuation correction. Likely from soft tissue attenuation artifact NM/NM johan perf SPECT rest & str IMPRESSION: 1. Myocardial perfusion imaging study shows likely soft tissue attenuation artifact in the distal anterior wall. Otherwise, normal perfusion. 2. Gated LVEF is 66% during stress and 52% during rest. 3. Transient ischemic dilatation not present. EKG component of the test reported separately.
--- NOTE | 2022-07-20 07:54 | CA_ITS ---
Acquisition Time: 2022-07-20 08:25:54 Total Exercise Time: 00:06:00 Test Indications: CHEST PAIN Medications: PRALUENT PEN ASA ALPRAZOLAM LOSARTAN METOPROLOL OMEPRAZOLE ROSUVASTATIN Protocol: ANGELLA Max HR: 131 BPM 87% of Pred: 149 BPM Max BP: 152/078 mmHG Max Work Load: 7.0 METS Exercise stress test with exercise 6 min of Angella protocol, achieving 87% MPHR, 7 METs, with mild sob and leg fatigue, No chest discomfort, with isolated PVCs, PACs and in recovery PVCs and ventricular cuplets noted, with normotensive response to exercise, without EKG changes meeting criteria for ischemia. Nuclear images pending. Test reviewed with Dr Miles Referred By: Shai Miles Overread By: OZZY METCALF
[2022-07-20 08:34] LABS: Cholesterol 114 mg/dL; HDL Cholesterol 51 mg/dL; LDL Cholesterol Calculated 50 mg/dl; Triglycerides 67 mg/dL
[2022-07-25 15:58] LABS: CRP High Sensitivity 1.3 mg/L
== END ==
LOC: HO.CARD 07:36
PROVIDERS: PCP Internal Medicine; Visit Provider Internal Medicine Cardiovascular Disease
DX: R91.1 Solitary pulmonary nodule (principal); I25.10 Atherosclerotic heart disease of native coronary artery without angina pectoris; E78.5 Hyperlipidemia, unspecified; Z01.810 Encounter for preprocedural cardiovascular examination
CPT/HCPCS: 36415; 78452; 80061; 86141; 93017; A9500; J0280; J2785

== ENCOUNTER 2022-08-14 06:01 | Outpatient (REF) | payer MEDICARE, OTHER, SELFPAY ==
[2022-08-14 08:13] LABS: Blood Urea Nitrogen 10 mg/dL (9-16); Cholesterol 118 mg/dL; Estimated Glomerular Filt Rate > 60; HDL Cholesterol 55 mg/dL; LDL Cholesterol Calculated 49 mg/dl; Triglycerides 73 mg/dL
== END 2022-08-14 06:02 | disposition home or self-care (01) ==
LOC: HO.LAB 06:01
PROVIDERS: PCP Internal Medicine; Visit Provider Internal Medicine
DX: I25.10 Atherosclerotic heart disease of native coronary artery without angina pectoris (principal); Z82.49 Family history of ischemic heart disease and other diseases of the circulatory system
CPT/HCPCS: 36415; 80061; 82565; 84520

== ENCOUNTER 2022-08-23 08:01 | Outpatient (REF) | payer MEDICARE, OTHER, SELFPAY ==
--- NOTE | ~2022-08-23 | CT_ITS ---
EXAMINATION: CT ANGIOGRAM BRAIN, HEAD CLINICAL INFORMATION: Family history of ischemic heart disease. Coronary arterial disease. COMPARISON: None TECHNIQUE: Test bolus sequences followed by intravenous administration 75 mL of Omnipaque 350 intravenous contrast. Helical imaging was performed in the axial plane from the skull base to the vertex. Delayed postcontrast imaging of the head was also performed. The data was processed at the lead radiologic technologist workstation for generation of MIP sequences. Three-dimensional volume rendered reformatted images were also generated at an offline 3-D workstation. The degree of stenosis determined by NASCET criteria. This CT examination was performed using dose optimization techniques as appropriate, variously including the following: *Automated exposure control *Adjustment of mA and/or kV according to patient size (this includes techniques or standardized protocols for targeted exams where dose is matched to indication/reason for exam; i.e. extremities or head) *Use of iterative reconstruction technique DLP: 2016 mGy-cm FINDINGS: Unenhanced and IV contrast enhanced CT of the head: The ventricles and sulci are normal in size and configuration. No intrarenal hemorrhage, tumors or acute infarcts visualized. No focal parenchymal lesions of the brain are noted. No abnormal extra-axial fluid collections visualized. Minimal punctate calcific atherosclerotic plaques are noted in the cavernous portions of the internal carotid arteries. Orbits and globes are normal in appearance. Mild mucosal thickening is noted within the left right maxillary sinuses and small bilateral dependent layering bilateral maxillary sinus gas-fluid levels are noted. No mastoid or middle ear cavity effusions visualized. No abnormal enhancement the brain parenchyma visualized. CT angiography head: The vertebral arteries are codominant. Minimal nonocclusive scattered calcific atherosclerosis is present in the cavernous portions of the internal carotid arteries. No intracranial large vessel occlusions are visualized. No intracranial aneurysms or stenoses noted. Multiple 3-D angiographic images confirm findings made upon review of the axial image data set including 3-D reformatted images processed in real-time on the radiologist workstation. CT/CT angio head IMPRESSION: *Minimal nonocclusive scattered punctate calcific atherosclerotic plaques within the cavernous portions of the left and right internal carotid arteries; otherwise, normal CT angiography of head. *Maxillary sinusitis. Bilateral maxillary mucosal thickening and small bilateral maxillary sinus gas-fluid levels suspicious for acute sinusitis.
[2022-08-23] MEDS: iohexoL 350 MG/ML 100 ML INFUS..BTL IV (09:43)
== END 2022-08-23 08:02 | disposition home or self-care (01) ==
LOC: HO.CT 08:01
PROVIDERS: PCP Internal Medicine; Visit Provider Internal Medicine
DX: Z13.89 Encounter for screening for other disorder (principal); Z82.49 Family history of ischemic heart disease and other diseases of the circulatory system
CPT/HCPCS: 70496; Q9967

== ENCOUNTER 2022-10-06 08:04 | Outpatient (REF) | payer MEDICARE, OTHER, SELFPAY ==
--- NOTE | ~2022-10-06 | MM_ITS ---
EXAMINATION: BONE DENSITOMETRY CLINICAL INDICATION: Age-related osteoporosis without current pathological fracture. COMPARISON: Previous BD dated 08/16/2012 and baseline BD dated 09/18/2007. TECHNIQUE: Using a [employer] DXA System (software version: 13.1) manufactured by [employer], dual-energy x-ray absorptiometry was performed of the lumbar spine and left hip. The images are of good technical quality. Summary results are attached. FINDINGS: AP SPINE L1-L2 (excluding L3 and L4): The data of L1-L4 has been changed to exclude the L3 and L4 vertebral bodies, because degenerative sclerosis at these levels may cause overestimation of lumbar spine density. Current: BMD 1.055 g/cm2, Z-score 0.3, T-score -0.9, normal, 5.6% decrease from previous, 5.3% decrease from baseline (<5% change is not significant). Prior: BMD 1.117 g/cm2. Baseline: BMD 1.114 g/cm2. LEFT FEMUR, NECK: Current: BMD 0.897 g/cm2, Z-score 0.4, T-score -1.0, normal. Prior: BMD 1.003 g/cm2. Baseline: BMD 1.011 g/cm2. LEFT FEMUR, TOTAL: Current: BMD 1.006 g/cm2, Z-score 1.2, T-score 0.0, normal, 5.1% decrease from previous, 7.9% decrease from baseline (<5% change is not significant). Prior: BMD 1.060 g/cm2. Baseline: BMD 1.092 g/cm2. IDENTIFIED RISK FACTORS: Menopause. HISTORY OF FRACTURE: None listed. MEDICATIONS: Calcium supplement or multivitamin. Vitamin D. MM/XR DEXA axial skeleton IMPRESSION: 1. DIAGNOSIS: Normal bone density based on the lowest T-score value of -1.0 in the femoral neck applying World Health Organization criteria. 2. 10-YEAR FRACTURE RISK PREDICTION, FRAX: According to the guidelines, FRAX calculation should only be performed on patients in the osteopenia bone density category. Therefore, FRAX was not performed on this patient.? 3. Treatment Recommendations: NOF guidelines recommend consideration for treatment in postmenopausal women and men age 50 and older presenting with the following: -A hip or vertebral (clinical or morphometric) fracture. -T-score less than or equal to -2.5 at the femoral neck or spine after appropriate evaluation to exclude secondary causes. -Low bone mass at the hip or spine and a 10-year fracture probability by FRAX of greater than or equal to 3% for hip fracture or greater than or equal to 20% for major osteoporotic fracture based on the [place] adapted WHO algorithm. 4. Other Recommendations: All treatment decisions require clinical judgment and consideration of individual patient factors, including patient preferences, comorbidities, previous drug use, risk factors not captured in the FRAX model (e.g. frailty, falls, vitamin D deficiency, increased bone turnover, interval significant decline in bone density) and possible under or overestimation of fracture risk by FRAX. FUTURE SCAN RECOMMENDATION: People with diagnosed cases of osteoporosis or at high risk for fracture should have regular bone mineral density tests. For patients eligible for Medicare, routine testing is allowed once every 2 years. The testing frequency can be increased to one year for patients who have rapidly progressing disease, those who are receiving or discontinuing medical therapy to restore bone mass, or have additional risk factors.
== END 2022-10-06 08:05 | disposition home or self-care (01) ==
LOC: HO.MAMMO 08:04
PROVIDERS: PCP Internal Medicine; Visit Provider Internal Medicine
DX: M81.0 Age-related osteoporosis without current pathological fracture (principal)
CPT/HCPCS: 77080

== ENCOUNTER 2022-11-06 06:10 | Outpatient (REF) | payer MEDICARE, OTHER, SELFPAY ==
[2022-11-06 06:25] LABS: MANUAL DIFF FLAG NO
[2022-11-06 08:06] LABS: Basophils Absolute Auto 0.1 X10*3/uL (0.0-0.2); Basophils Percent Auto 0.8 % (0-2); Eosinophils Absolute Auto 0.2 X10*3/uL (0.0-0.4); Eosinophils Percent Auto 3.3 % (0-4); Hematocrit 39.6 % (37.0-47.0); Hemoglobin 13.3 g/dl (12.0-16.0); Imm Gran Abs Auto 0.01 X10*3/uL (0.00-0.03); Imm Gran Pct Auto 0.2 % (0.0-0.4); Lymphocytes Absolute Auto 2.4 X10*3/uL (1.2-4.9); Lymphocytes Percent Auto 39.8 % (20-40); Mean Corpuscular HGB Conc 33.6 g/dl (31.0-35.0); Mean Corpuscular Hemoglobin 31.4 pg (27.0-33.0); Mean Corpuscular Volume 93.4 fL (80.0-98.0); Mean Platelet Volume 11.7 fL (9.4-12.3); Monocytes Absolute Auto 0.6 X10*3/uL (0.1-1.2); Neutrophils Absolute Auto 2.8 x10*3/uL (2.0-8.3); Neutrophils Percent Auto 45.9 % (45-73); Platelet Count 178 X10*3/uL (160-400); Red Blood Count 4.24 X10*6/uL (4.20-5.50); Red Cell Distribution Width 13.5 % (11.0-16.0); White Blood Count 6.1 X10*3/uL (4.8-10.8)
[2022-11-06 08:22] LABS: Alanine Aminotransferase 11 U/L (0-31); Albumin Level 4.2 g/dL (3.5-5.0); Alkaline Phosphatase 65 U/L (39-117); Anion Gap 11 (12-20); Aspartate Amino Transferase 16 U/L (5-31); Bilirubin Total 1.6 mg/dL (0.0-1.0); Blood Urea Nitrogen 12 mg/dL (9-16); Calcium 9.7 mg/dL (8.4-10.2); Carbon Dioxide 30 mmol/L (22-29); Chloride 106 mmol/L (96-108); Estimated Glomerular Filt Rate > 60; Glucose Random 99 mg/dL (60-115); Potassium 4.8 mmol/L (3.3-5.1); Sodium 142 mmol/L (135-145); Total Protein 6.4 g/dL (6.5-8.0)
[2022-11-06 08:52] LABS: Free T4 (Free Thyroxine) 0.74 ng/dL (0.71-1.85); Thyroid Stimulating Hormone 2.42 uIU/mL (0.32-4.0); Vitamin B12 718 pg/mL (200-900); Vitamin D 25-OH Total 68.5 ng/mL (>30)
== END 2022-11-06 06:11 | disposition home or self-care (01) ==
LOC: HO.LAB 06:10
PROVIDERS: PCP Internal Medicine; Visit Provider Internal Medicine
DX: I25.10 Atherosclerotic heart disease of native coronary artery without angina pectoris (principal); M81.0 Age-related osteoporosis without current pathological fracture; I10 Essential (primary) hypertension; E78.00 Pure hypercholesterolemia, unspecified
CPT/HCPCS: 36415; 80053; 82306; 82607; 82746; 84439; 84443; 85025

== ENCOUNTER 2022-11-30 07:24 | Outpatient (REF) | payer MEDICARE, OTHER, SELFPAY ==
--- NOTE | ~2022-11-30 | CT_ITS ---
EXAMINATION: CT CHEST WITHOUT CONTRAST CLINICAL INFORMATION: Pulmonary nodule follow-up. COMPARISON: CT chest 06/13/2022. TECHNIQUE: Multidetector volumetric CT imaging of the chest was done. Axial MIP volume rendering provided. Sagittal and coronal reformatted images were obtained. This CT examination was performed using dose optimization techniques as appropriate, variously including the following: *Automated exposure control *Adjustment of mA and/or kV according to patient size (this includes techniques or standardized protocols for targeted exams where dose is matched to indication/reason for exam; i.e. extremities or head) *Use of iterative reconstruction technique DLP: 140 mGy-cm FINDINGS: LUNGS: Stable 5 mm nodule at the left apex. The previously seen 1 cm nodule in nodule in the right middle lobe has resolved and was presumably inflammatory. There is some scarring in the medial aspect of the middle lobe. Scattered micronodules are stable. Mild bronchiectasis and thick-walled airways. MEDIASTINUM: No mediastinal adenopathy. CORONARY ARTERY CALCIFICATION: Present. PLEURA: There is no pleural effusion. No pleural mass or thickening. AXILLA: No axillary adenopathy. UPPER ABDOMEN: Cholecystectomy. No adrenal mass. OSSEOUS STRUCTURES: Degenerative changes in the spine. CT/CT chest wo IV con IMPRESSION: The previously seen 1 cm nodule in the middle lobe has resolved. Other micronodules and small nodules measuring up to 5 mm are stable. No new or suspiciously enlarging nodule. Follow-up as clinically indicated. Fleischner guidelines were followed.
== END 2022-11-30 07:25 | disposition home or self-care (01) ==
LOC: HO.CT 07:24
PROVIDERS: PCP Internal Medicine; Visit Provider Surgery
DX: R91.1 Solitary pulmonary nodule (principal)
CPT/HCPCS: 71250

== ENCOUNTER → 2022-12-08 08:50 | Outpatient (BNVA) | payer MEDICARE, OTHER, SELFPAY | PROVIDERS: PCP Internal Medicine; Visit Provider Surgery | DX: R91.1 Solitary pulmonary nodule (principal); J43.2 Centrilobular emphysema; I25.10 Atherosclerotic heart disease of native coronary artery without angina pectoris; I10 Essential (primary) hypertension; Z95.5 Presence of coronary angioplasty implant and graft; Z87.891 Personal history of nicotine dependence | CPT/HCPCS: 99212 ==

== ENCOUNTER 2023-03-13 08:13 | Outpatient (AMB) | payer MEDICARE, OTHER, SELFPAY ==
[2023-03-13 08:30] VITALS: BP 138/78; PULSE 58; O2SAT 97; BMI 27.9
--- NOTE | 2023-03-13 08:30 | A.OFFPC_ITS ---
Vital Signs 03/13/23 08:30 Height 5 ft 7 in Weight 178 lb BMI 27.9 BP 138/78 Blood Pressure Location Lt brachial Position Sitting Pulse 58 Pulse Source Pulse Oximeter Pulse Oximetry (%) 97 Oxygen Delivery Method Room Air Intake Visit Reasons: 6mth f/u, A-fib symptoms Allergies lisinopril [LISINOPRIL] Adverse Reaction (Intermediate, Verified 03/13/23 08:30) COUGH Hfpltyz-PJA-QpV Reductase Inhibitor [GQKDUZO-GKS-QLS REDUCTASE INHIBITOR] Adverse Reaction (Intermediate, Verified 03/13/23 08:30) MUSCLE ACHES ticagrelor [Brilinta] Adverse Reaction (Intermediate, Verified 03/13/23 08:30) Shortness of Breath Medication List - Last Reconciled 03/13/23 by Esvin Basilio MD alirocumab (Praluent Pen) 75 mg subcut Q3W alprazolam 0.5 mg PO BID PRN 30 days aspirin (Adult Low Dose Aspirin) 81 mg PO DAILY cholecalciferol (vitamin D3) 50 mcg PO DAILY coenzyme Q10 (CoQ-10) 100 mg PO DAILY epinephrine (EpiPen 2-Jc) 0.3 mg (0.3 mL) IM Q4H PRN losartan 100 mg PO DAILY metoprolol succinate ER 100 mg PO DAILY 90 days multivitamin (Daily Multi-Vitamin tablet) 1 tab PO DAILY nitroglycerin 0.4 mg sublingual PER PKG DIR PRN omeprazole 20 mg PO QAM rosuvastatin 20 mg PO DAILY Tobacco use date assessed: 09/04/22 Fall risk assessment: No Falls in past year Last assessed Fall Risk: 03/13/23 Dental Screening Dental Screen Date: 03/13/23 Did you have a dental visit in the last 12 months?: Yes Did you have a dental problem in the last 6 months where you did not have access to dental care?: No Was dental information given to patient?: Patient has dentist HPI 6mth f/u HPI Details 73-year-old female with history of coronary artery disease hypertension hypercholesterolemia GERD COPD generalized anxiety disorder coming in for follow-up. Patient was last seen in August 2022 for physical blood work was requested bone density. Normal bone density. 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 Patient continues to follow-up with thoracic surgeon. complains of plapitations one a day - x 1 months ,. no sob, tired, no sob, no fevers, been more anxious after the of child last July. Otherwise no other symptoms except for the palpitations. Patient has been checking the blood pressure at home and a lot of the numbers have been above 140 systolic prompting for consultation November was notified about the elevated blood pressure and losartan was increased to 100 mg. Patient continues to have an elevated blood pressure is here for follow-up [facility] Medical History CAD (coronary artery disease) Dyspnea on exertion Former smoker, stopped smoking in distant past History of COVID-19 HLD (hyperlipidemia) HTN (hypertension) Paroxysmal atrial fibrillation Postmenopausal PVD (peripheral vascular disease) Right lower quadrant abdominal pain Thoracic back pain Surgical History History of breast biopsy (~1996) History of cardiac cath (~2019) History of cholecystectomy (~2018) History of colonoscopy (~2020) History of esophagogastroduodenoscopy (EGD) (~2020) History of lung surgery (~2022) Stented coronary artery (~2017) Family History Father Sudden cardiac CVD (cardiovascular disease) Mother Stroke HTN (hypertension) Myocardial infarction Social History Household Members: Spouse Housing: House Alcohol intake: current Alcohol intake frequency: holidays/special occasions only Alcohol type: wine Patient Tobacco Use Status: Former Tobacco user Tobacco use type: Cigarette Years Smoked: quit 1983 e-Cigarette/Vaping Use: Never Used Second Hand Smoke Exposure: No Current occupational status: retired Cognitive needs: No Hearing needs: No Vision needs: No Questionnaire PHQ-9 Over the last 2 weeks, how often have you been bothered by any of the following problems? 1. Little interest or pleasure in doing things: several days 2. Feeling down, depressed, or hopeless: not at all 3. Trouble falling or staying asleep, or sleeping too much: more than half the days 4. Feeling tired or having little energy: not at all 5. Poor appetite or overeating: not at all 6. Feeling bad about yourself - or that you are a failure or have let yourself or your family down: not at all 7. Trouble concentrating on things, such as reading the newspaper or watching television: not at all 8. Moving or speaking so slowly that other people could have noticed. Or the opposite - being so fidgety or restless that you have been moving around a lot more than usual: not at all 9. Thoughts that you would be better off or of hurting yourself in some way: not at all Total score: 3 Depression Screening Interpretation: Negative Source: Developed by Drs. Harrison Mejia, Radha Koch, Huey Andrews and colleagues, with an educational donny from [employer]. Thrive Questionnaire Date Thrive assessed: 09/04/22 AUDIT C Alcohol Use Questionnaire (AUDIT-C) 1. How often do you have a drink containing alcohol?: Monthly or less 2. How many drinks containing alcohol do you have on a typical day when you are drinking?: 1 or 2 3. How often do you have six or more drinks on one occasion?: Never Total Score: 1 TWILA-7 AMB Questionnaire TWILA-7 Date TWILA - 7 assessed: 09/04/22 Source: Developed by Drs. Harrisno Mejia, Radha Koch, Huey Andrews and colleagues, with an educational donny from [employer]. Physical exam (Primary Care) Vital Signs: Last Vital Signs Pulse 58 03/13/23 08:30 BP 138/78 03/13/23 08:30 Pulse Ox 97 03/13/23 08:30 Oxygen Delivery Method Room Air 03/13/23 08:30 BMI result Body Mass Index 27.9 Tobacco/Smoking Status: Tobacco use Status Tobacco use date assessed 09/04/22 03/13/23 08:34 Patient Tobacco Use Status Former Tobacco user 03/13/23 08:34 Tobacco use type Cigarette 03/13/23 08:34 e-Cigarette/Vaping Use Never Used 03/13/23 08:34 PHQ-9: PHQ-9 Score PHQ-9: Total score 3 03/13/23 08:34 Depression Screening Interpretation: Negative Thrive Assessment: Date of Thrive Assessment Date Thrive assessed 09/04/22 03/13/23 08:34 Const General: alert; No acute distress Eyes Conjunctivae: conjunctivae normal Resp Auscultation: clear to auscultation bilaterally Cardio Rate: regular rate Rhythm: regular rhythm GI Inspection: Yes normal to inspection Extrem General: Yes normal to inspection and No edema Assessment and Plan Assessment & Plan (1) GERD (gastroesophageal reflux disease): Code(s): K21.9 - Gastro-esophageal reflux disease without esophagitis Qualifiers: Esophagitis presence: without esophagitis Qualified Code(s): K21.9 - Gastro-esophageal reflux disease without esophagitis Plan: Avoid the foods that causes that usually spicy foods, tomato products, juices, coffee, soda and foods that your sensitive to. After eating do not lie down, allow 3-4 hours before in lie down. And keep the head of bed above 30 degrees to avoid the acid from going up. (2) HLD (hyperlipidemia): Code(s): E78.5 - Hyperlipidemia, unspecified Qualifiers: Hyperlipidemia type: pure hypercholesterolemia Qualified Code(s): E78.00 - Pure hypercholesterolemia, unspecified Plan: Avoid fried foods, chicken skin, eggs, butter margarine, pastries and meat. Be it pork or beef they have a lot of cholesterol LDL goal of less than 70. August 2022 last test. Patient is statin intolerant and placed on Praluent (3) HTN (hypertension): Code(s): I10 - Essential (primary) hypertension Qualifiers: Hypertension type: essential hypertension Qualified Code(s): I10 - Essential (primary) hypertension Plan: Continue with blood pressure medication. Decrease salt intake and exercise patient continues on losartan 100 mg once a day metoprolol 100 mg once a day (4) CAD (coronary artery disease): Comment: July 2018 PCI LUPE RCA echo EF 60-65% grade 1 diastolic dysfunction, nuclear stress test normal February 2020 Code(s): I25.10 - Atherosclerotic heart disease of [place] coronary artery without angina pectoris Qualifiers: Coronary Disease-Associated Artery/Lesion type: [place] artery [place] vs. transplanted heart: [place] heart Associated angina: without angina Qualified Code(s): I25.10 - Atherosclerotic heart disease of [place] coronary artery without angina pectoris Plan: Control the cholesterol, weight, blood pressure (5) Pulmonary nodule: Code(s): R91.1 - Solitary pulmonary nodule Plan: Patient follows up with the thoracic surgeon had a CT scan done in November 2022 biopsy-done benign (6) Generalized anxiety disorder: Code(s): F41.1 - Generalized anxiety disorder Plan: Continue with present time as needed (7) Emphysema lung: Code(s): J43.9 - Emphysema, unspecified Plan: No problems with breathing (8) Palpitations: Code(s): R00.2 - Palpitations Orders: Orders ECG 3 day holter monitor Today R00.2 - Palpitations Medications: New hydrochlorothiazide 12.5 mg PO QAM 30 tabs 3RF I10 - Essential (primary) hypertension Changed From losartan 100 mg (2 x 50 mg) PO DAILY 180 tabs 1RF R00.2 - Palpitations To losartan 100 mg PO DAILY 90 tabs 1RF R00.2 - Palpitations Refilled rosuvastatin 20 mg PO DAILY 90 tabs 3RF R00.2 - Palpitations omeprazole 20 mg PO QAM 90 caps 2RF R00.2 - Palpitations alprazolam 0.5 mg PO BID 30 days PRN 20 tabs 2RF Anxiety R00.2 - Palpitations Coding Level of Care Code Est Pt Level 4 (91985) Diagnoses GERD (gastroesophageal reflux disease) K21.9 Esophagitis presence: without esophagitis HLD (hyperlipidemia) E78.00 Hyperlipidemia type: pure hypercholesterolemia HTN (hypertension) I10 Hypertension type: essential hypertension CAD (coronary artery disease) I25.10 Coronary Disease-Associated Artery/Lesion type: [place] artery [place] vs. transplanted heart: [place] heart Associated angina: without angina Pulmonary nodule R91.1 Generalized anxiety disorder F41.1 Emphysema lung J43.9 Palpitations R00.2
== END 2023-03-13 08:59 | disposition home or self-care (01) ==
PROVIDERS: Visit Provider Internal Medicine
DX: K21.9 Gastro-esophageal reflux disease without esophagitis (principal); I10 Essential (primary) hypertension; J43.9 Emphysema, unspecified; I25.10 Atherosclerotic heart disease of native coronary artery without angina pectoris; E78.00 Pure hypercholesterolemia, unspecified; R91.1 Solitary pulmonary nodule; F41.1 Generalized anxiety disorder; R00.2 Palpitations
CPT/HCPCS: 99214

== ENCOUNTER → 2023-03-20 08:26 | Outpatient (REF) | payer MEDICARE, OTHER, SELFPAY ==
--- NOTE | 2023-03-20 08:29 | HM_ITS ---
Conclusion: 1. Patient was monitored for total period of 2 days and 22 hours 2. Baseline was normal sinus with average heart of 66 beats per minute 3. No significant pauses noted 4. Very frequent isolated PACs noted with total burden of 21% with frequent short burst of SVT, longest lasting 9 beats and fastest at 121 beats per minute 5. Patient reported 4 events that correlated either with PAC or couplet 6. No significant pauses noted MTDD
== END ==
LOC: HO.CARD 08:26
PROVIDERS: PCP Internal Medicine; Visit Provider Internal Medicine
DX: R00.2 Palpitations (principal)
CPT/HCPCS: 93242

== ENCOUNTER → 2023-03-20 08:29 | Outpatient (BNV) | payer MEDICARE, OTHER, SELFPAY | PROVIDERS: PCP Internal Medicine; Visit Provider Internal Medicine Cardiovascular Disease | DX: I49.1 Atrial premature depolarization (principal) | CPT/HCPCS: 93244 ==

== ENCOUNTER 2023-03-27 13:06 | Outpatient (AMB) | payer MEDICARE, OTHER, SELFPAY ==
[2023-03-27 13:10] VITALS: BP 132/70; PULSE 71; O2SAT 98; BMI 27.4
--- NOTE | 2023-03-27 13:10 | A.OFFPC_ITS ---
Vital Signs 03/27/23 13:10 Height 5 ft 7 in Weight 175 lb BMI 27.4 BP 132/70 Blood Pressure Location Lt brachial Position Sitting Pulse 71 Pulse Source Pulse Oximeter Pulse Oximetry (%) 98 Oxygen Delivery Method Room Air Intake Visit Reasons: [place]/- Right eye/9-11 Left eye Allergies lisinopril [LISINOPRIL] Adverse Reaction (Intermediate, Verified 03/13/23 08:30) COUGH Zwfgmgy-MLU-YjJ Reductase Inhibitor [VJMQKYI-IXB-VUE REDUCTASE INHIBITOR] Adverse Reaction (Intermediate, Verified 03/13/23 08:30) MUSCLE ACHES ticagrelor [Brilinta] Adverse Reaction (Intermediate, Verified 03/13/23 08:30) Shortness of Breath Tobacco use date assessed: 09/04/22 Fall risk assessment: No Falls in past year Last assessed Fall Risk: 03/27/23 Dental Screening Dental Screen Date: 03/27/23 Did you have a dental visit in the last 12 months?: Yes Did you have a dental problem in the last 6 months where you did not have access to dental care?: No Was dental information given to patient?: Patient has dentist HPI HPI Comments History of Present Illness Details 73-year-old female past medical history significant for GERD generalized disorder, hyperlipidemia hypertension PVD,CAD and emphysema. Patient of Dr. Basilio presents today for pre-op appointment for Bilateral cataract surgery with Dr. Ocampo. Right eye 03/23/23, left eye 04/16/23 under local anesthesia. Patient reports previously palpitations for she which she reported to pcp holter monitor was obtained on 03/20/23 showed: Conclusion: 1. Patient was monitored for total period of 2 days and 22 hours 2. Baseline was normal sinus with average heart of 66 beats per minute 3. No significant pauses noted 4.? Very frequent isolated PACs noted with total burden of 21% with frequent short burst of SVT, longest lasting 9 beats and fastest at 121 beats per minute 5. Patient reported 4 events that correlated either with PAC or couplet 6. No significant pauses noted? EKG in office: Showed sinus arrhythmia, with PVC. Otherwise normal ECG. Patient denies any chest pain, palpitations, shortness of breath and syncope. Laboratory Tests 11/06/22 11/06/22 06:25 06:25 WBC 6.1 RBC 4.24 Hgb 13.3 Hct 39.6 MCV 93.4 MCH 31.4 MCHC 33.6 RDW 13.5 Plt Count 178 MPV 11.7 Immature Gran % (A uto) 0.2 Neut % (Auto) 45.9 Lymph % (Auto) 39.8 [place] % (Auto) 10.0 Eos % (Auto) 3.3 Baso % (Auto) 0.8 Lymph # (Auto) 2.4 [place] # (Auto) 0.6 Eos # (Auto) 0.2 Baso # (Auto) 0.1 Abs Immat Gran (au to) 0.01 Absolute Neuts (au to) 2.8 Absolute Nucleated RBC 0.000 Nucleated RBC % (a uto) 0.0 Sodium 142 Potassium 4.8 Chloride 106 Carbon Dioxide 30 H Anion Gap 11 L BUN 12 Creatinine 0.84 Estimated GFR > 60 Random Glucose 99 Calcium 9.7 Total Bilirubin 1.6 H AST 16 ALT 11 Alkaline Phosphata se 65 Total Protein 6.4 L Albumin 4.2 TSH 2.42 Free T4 0.74 PFSH Medical History CAD (coronary artery disease) Dyspnea on exertion Former smoker, stopped smoking in distant past History of COVID-19 HLD (hyperlipidemia) HTN (hypertension) Paroxysmal atrial fibrillation Postmenopausal PVD (peripheral vascular disease) Right lower quadrant abdominal pain Thoracic back pain Surgical History History of breast biopsy (~1996) History of cardiac cath (~2019) History of cholecystectomy (~2018) History of colonoscopy (~2020) History of esophagogastroduodenoscopy (EGD) (~2020) History of lung surgery (~2022) Stented coronary artery (~2017) Family History Father Sudden cardiac CVD (cardiovascular disease) Mother Stroke HTN (hypertension) Myocardial infarction Social History Household Members: Spouse Housing: House Alcohol intake: current Alcohol intake frequency: holidays/special occasions only Alcohol type: wine Patient Tobacco Use Status: Former Tobacco user Tobacco use type: Cigarette Years Smoked: quit 1983 e-Cigarette/Vaping Use: Never Used Second Hand Smoke Exposure: No Current occupational status: retired Cognitive needs: No Hearing needs: No Vision needs: Yes Questionnaire PHQ-9 Over the last 2 weeks, how often have you been bothered by any of the following problems? 1. Little interest or pleasure in doing things: several days 2. Feeling down, depressed, or hopeless: not at all 3. Trouble falling or staying asleep, or sleeping too much: more than half the days 4. Feeling tired or having little energy: not at all 5. Poor appetite or overeating: not at all 6. Feeling bad about yourself - or that you are a failure or have let yourself or your family down: not at all 7. Trouble concentrating on things, such as reading the newspaper or watching television: not at all 8. Moving or speaking so slowly that other people could have noticed. Or the opposite - being so fidgety or restless that you have been moving around a lot more than usual: not at all 9. Thoughts that you would be better off or of hurting yourself in some way: not at all Total score: 3 Depression Screening Interpretation: Negative Source: Developed by Drs. Harrison Mejia, Radha Koch, Huey Andrews and colleagues, with an educational donny from [employer]. Thrive Questionnaire Date Thrive assessed: 09/04/22 AUDIT C Alcohol Use Questionnaire (AUDIT-C) 1. How often do you have a drink containing alcohol?: Monthly or less 2. How many drinks containing alcohol do you have on a typical day when you are drinking?: 1 or 2 3. How often do you have six or more drinks on one occasion?: Never Total Score: 1 TWILA-7 AMB Questionnaire TWILA-7 Date TWILA - 7 assessed: 09/04/22 Source: Developed by Drs. Harrison Mejia, Huey Sahni and colleagues, with an educational donny from [employer]. Review of Systems Const Denies chills, Denies fatigue, Denies fever(s) and Denies poor appetite Eyes Denies no additional complaints ENT Reports Normal hearing present Card Denies chest pain, Denies syncope, Denies rapid heart rate and Denies dyspnea Resp Denies cough and Denies dyspnea GI Denies change in stool character, Denies constipation, Denies diarrhea, Denies nausea and Denies vomiting Denies urinary frequency, Denies dysuria and Denies urinary urgency Neuro Reports Normal hearing present, Denies confusion and Denies syncope Psych Denies confusion Endo Denies fatigue Physical exam (Primary Care) Vital Signs: Last Vital Signs Pulse 71 03/27/23 13:10 BP 132/70 03/27/23 13:10 Pulse Ox 98 03/27/23 13:10 Oxygen Delivery Method Room Air 03/27/23 13:10 BMI result Body Mass Index 27.4 Tobacco/Smoking Status: Tobacco use Status Tobacco use date assessed 09/04/22 03/27/23 13:15 Patient Tobacco Use Status Former Tobacco user 03/27/23 13:15 Tobacco use type Cigarette 03/27/23 13:15 e-Cigarette/Vaping Use Never Used 03/27/23 13:15 PHQ-9: PHQ-9 Score PHQ-9: Total score 3 03/27/23 13:34 Depression Screening Interpretation: Negative Thrive Assessment: Date of Thrive Assessment Date Thrive assessed 09/04/22 03/27/23 13:15 Const General: No confusion Orientation/consciousness: No confusion HENMT Head: Yes normocephalic and Yes atraumatic Eyes Conjunctivae: conjunctivae normal Chest Chest palpation & inspection: normal inspection of the chest Resp Effort & Inspection: normal respiratory effort Auscultation: clear to auscultation bilaterally, no crackles, no rhonchi and no wheezes Cardio Rate: regular rate Rhythm: regular rhythm Heart sounds: S1 normal heart sound present and S2 normal heart sound present GI Inspection: Yes normal to inspection Neuro General: No confusion Cranial nerves: Yes Normal hearing present Extrem General: No edema Assessment and Plan Assessment & Plan (1) Preop examination: Code(s): Z01.818 - Encounter for other preprocedural examination Plan: Based above examination review of lab work and EKG. Patient is of average risk to undergo schedule cataract surgery. No further workup needed at this time and patient can proceed with scheduled surgery. (2) HTN (hypertension): Code(s): I10 - Essential (primary) hypertension Qualifiers: Hypertension type: essential hypertension Qualified Code(s): I10 - Essential (primary) hypertension Plan: Continue on metoprolol 100 mg daily and losartan 100 mg daily. Patient reported that she was previously started on hydrochlorothiazide 12.5 mg q.a.m., however she only took this for 3 days and was making her extremely f atigued dizzy so she stopped taking the medication. Blood pressure below goal 132/70. Patient advised to continue to check blood pressure at home after sitting down for 3-5 minutes keep a log in if she notices elevated blood pressures greater than 140/90 to contact PCP for blood pressure medication adjustment. (3) HLD (hyperlipidemia): Code(s): E78.5 - Hyperlipidemia, unspecified Qualifiers: Hyperlipidemia type: pure hypercholesterolemia Qualified Code(s): E78.00 - Pure hypercholesterolemia, unspecified Plan: Continue on rosuvastatin 20 mg daily. Follow low-cholesterol diet. Plan Keep scheduled follow-up with PCP or follow-up sooner if needed. Coding Level of Care Code Est Pt Level 3 (44453) Diagnoses Preop examination Z01.818 HTN (hypertension) I10 Hypertension type: essential hypertension HLD (hyperlipidemia) E78.00 Hyperlipidemia type: pure hypercholesterolemia
== END 2023-03-27 14:24 | disposition home or self-care (01) ==
PROVIDERS: PCP Internal Medicine; Visit Provider Nurse Practitioner Family
DX: Z01.818 Encounter for other preprocedural examination (principal); I10 Essential (primary) hypertension; E78.00 Pure hypercholesterolemia, unspecified
CPT/HCPCS: 99213

== ENCOUNTER 2023-04-02 09:15 | Day surgery (SDC) | payer MEDICARE, OTHER, SELFPAY ==
[2023-03-28 14:24] VITALS: BMI 27.2
--- NOTE | 2023-03-30 08:19 | MHC.SHP ---
Pre-Procedural Eval Section A Date of Service: 03/30/23 The patient is an INPATIENT: No Changes since office visit: No Cold of Flu in the past 2 weeks, No New Medical Problems, No Changes in Medication and No Patient answered all questions The History & Physical has been completed within 30 days and I have reviewed it.: Yes Section B Chief Complaint: Age-related nuclear cataract, right eye Allergies: Allergies Allergy/AdvReac Type Severity Reaction Status Date / Time bee pollen [bee stings] Allergy Severe Anaphylaxis Verified 03/28/23 14:23 lisinopril [LISINOPRIL] AdvReac Intermediate COUGH Verified 03/28/23 14:23 Gpuwdzu-NWR-SuS Reductase AdvReac Intermediate MUSCLE Verified 03/28/23 14:23 Inhibitor ACHES [ELBEKBR-PAO-AWH REDUCTASE INHIBITOR] ticagrelor [Brilinta] AdvReac Intermediate Shortness Verified 03/28/23 14:23 of Breath Plan Diagnosis/Plan: Unchanged I have reviewed the history and physical and performed a pertinent physical examination on my patient. No changes have occurred unless specified. Time Spent With Patient Time: Total time managing care of this patient today ____ minutes.
--- NOTE | 2023-03-30 09:37 | P.CONAN_ITS ---
Documented by User: Lizzette Hare NP 03/30/23 09:38 HPI - Anesthesia Eval Consult details Narrative: 73yo F for Right Cataract Extraction IOL Insertion Medically optimized No previous cataract on record [facility] Active Problems Active Problems: All Active Problems (Updated 03/28/23 @ 14:30 by Nubia Reardon RN) Pulmonary nodule (Acute) GERD (gastroesophageal reflux disease) (Acute) Hyperbilirubinemia (Acute) Emphysema lung (Acute) Generalized anxiety disorder (Acute) Family history of cerebral aneurysm (Acute) Palpitations (Acute) Postmenopausal (Acute) CAD (coronary artery disease) (Acute) HTN (hypertension) (Acute) PVD (peripheral vascular disease) (Acute) HLD (hyperlipidemia) (Acute) Past Medical History Medical History (Updated 03/30/23 @ 17:24 by Esvin Basilio MD) CAD (coronary artery disease) Cataract Dyspnea on exertion Former smoker, stopped smoking in distant past History of COVID-19 HLD (hyperlipidemia) HTN (hypertension) Paroxysmal atrial fibrillation Postmenopausal PVD (peripheral vascular disease) Right lower quadrant abdominal pain Thoracic back pain Family History Family History Father Sudden cardiac CVD (cardiovascular disease) Mother Stroke HTN (hypertension) Myocardial infarction Family history of problems with anesthesia: No Surgical History Surgical History History of breast biopsy (~1996) History of cardiac cath (~2019) History of cholecystectomy (~2018) History of colonoscopy (~2020) History of esophagogastroduodenoscopy (EGD) (~2020) History of lung surgery (~2022) Stented coronary artery (~2017) History of Problems with Anesthesia: No Social History Social History Household Members: Spouse Housing: House Are you a primary director of primary care to a significant other at home: No Do you presently have visiting nurse or other home services: No Alcohol intake: current Alcohol intake frequency: holidays/special occasions only Alcohol type: wine Patient Tobacco Use Status: Former Tobacco user Quit Date: Tobacco use type: Cigarette Years Smoked: quit 1983 e-Cigarette/Vaping Use: Never Used Second Hand Smoke Exposure: No Use of substances other than those prescribed or required for medical reasons: No Have you been hit, kicked, punched, or otherwise hurt by someone within the past year? If so, by whom?: No Are you DNR?: No Advance Directives: No Advance Directives Information Provided: Yes Advance Directives on File: No Recently lost weight without trying: No Nutrition Risks: No Nutritional Risk Current occupational status: retired Cognitive needs: No Hearing needs: No Vision needs: Yes Meds Allergies Allergy/AdvReac Type Severity Reaction Status Date / Time bee pollen [bee stings] Allergy Severe Anaphylaxis Verified 03/28/23 14:23 lisinopril [LISINOPRIL] AdvReac Intermediate COUGH Verified 03/28/23 14:23 Njcnsec-DZB-NpM Reductase AdvReac Intermediate MUSCLE Verified 03/28/23 14:23 Inhibitor ACHES [[id number] REDUCTASE INHIBITOR] ticagrelor [Brilinta] AdvReac Intermediate Shortness Verified 03/28/23 14:23 of Breath Home Medications Medication Instructions Recorded Confirmed Last Taken Type aspirin 81 mg tablet,delayed 81 mg PO DAILY 05/24/20 03/28/23 Unknown History release (Adult Low Dose Aspirin) nitroglycerin 0.4 mg sublingual 0.4 mg sublingual PER PKG DIR PRN 05/24/20 03/28/23 Unknown History tablet Chest Pain cholecalciferol (vitamin D3) 50 50 mcg PO DAILY 06/09/20 03/28/23 Unknown History mcg (2,000 unit) capsule multivitamin (Daily Multi-Vitamin 1 tab PO DAILY 06/09/20 03/28/23 Unknown H istory tablet) coenzyme Q10 100 mg capsule 100 mg PO DAILY 09/04/22 03/28/23 Unknown History (CoQ-10) alirocumab 75 mg/mL subcutaneous 75 mg subcut Q3W 12/08/22 03/28/23 Unknown History pen injector (Praluent Pen) Exam Exam Date and Time: March 30, 2023 0937 Height,Weight and Vital Signs: Height 5 ft 7 in Weight 78.925 kg Assessment and Plan Assessment Anesthesia Assessment: Chart Reviewed Final Anesthetic Review Family History of Problems with Anesthesia: No History of Problems with Anesthesia: No Documented by User: Terrence Clayton MD 04/02/23 15:48 [facility] Past Medical History Medical History (Updated 03/30/23 @ 17:24 by Esvin Basilio MD) CAD (coronary artery disease) Cataract Dyspnea on exertion Former smoker, stopped smoking in distant past History of COVID-19 HLD (hyperlipidemia) HTN (hypertension) Paroxysmal atrial fibrillation Postmenopausal PVD (peripheral vascular disease) Right lower quadrant abdominal pain Thoracic back pain Family History Family History Father Sudden cardiac CVD (cardiovascular disease) Mother Stroke HTN (hypertension) Myocardial infarction Surgical History Surgical History History of breast biopsy (~1996) History of cardiac cath (~2019) History of cholecystectomy (~2018) History of colonoscopy (~2020) History of esophagogastroduodenoscopy (EGD) (~2020) History of lung surgery (~2022) Stented coronary artery (~2017) Social History Social History Household Members: Spouse Housing: House Are you a primary director of primary care to a significant other at home: No Do you presently have visiting nurse or other home services: No Alcohol intake: current Alcohol intake frequency: holidays/special occasions only Alcohol type: wine Patient Tobacco Use Status: Former Tobacco user Quit Date: Tobacco use type: Cigarette Years Smoked: quit 1983 e-Cigarette/Vaping Use: Never Used Second Hand Smoke Exposure: No Use of substances other than those prescribed or required for medical reasons: No Have you been hit, kicked, punched, or otherwise hurt by someone within the past year? If so, by whom?: No Are you DNR?: No Advance Directives: No Advance Directives Information Provided: Yes Advance Directives on File: No Recently lost weight without trying: No Nutrition Risks: No Nutritional Risk Current occupational status: retired Cognitive needs: No Hearing needs: No Vision needs: Yes Meds Allergies Allergy/AdvReac Type Severity Reaction Status Date / Time bee pollen [bee stings] Allergy Severe Anaphylaxis Verified 03/28/23 14:23 lisinopril [LISINOPRIL] AdvReac Intermediate COUGH Verified 03/28/23 14:23 Rnkwnxe-STZ-HxO Reductase AdvReac Intermediate MUSCLE Verified 03/28/23 14:23 Inhibitor ACHES [[id number]-[id number]-PTJ REDUCTASE INHIBITOR] ticagrelor [Brilinta] AdvReac Intermediate Shortness Verified 03/28/23 14:23 of Breath Home Medications Medication Instructions Recorded Confirmed Last Taken Type aspirin 81 mg tablet,delayed 81 mg PO DAILY 05/24/20 03/28/23 Unknown History release (Adult Low Dose Aspirin) nitroglycerin 0.4 mg sublingual 0.4 mg sublingual PER PKG DIR PRN 05/24/20 03/28/23 Unknown History tablet Chest Pain cholecalciferol (vitamin D3) 50 50 mcg PO DAILY 06/09/20 03/28/23 Unknown History mcg (2,000 unit) capsule multivitamin (Daily Multi-Vitamin 1 tab PO DAILY 06/09/20 03/28/23 Unknown Histo ry tablet) coenzyme Q10 100 mg capsule 100 mg PO DAILY 09/04/22 03/28/23 Unknown History (CoQ-10) alirocumab 75 mg/mL subcutaneous 75 mg subcut Q3W 12/08/22 03/28/23 Unknown History pen injector (Praluent Pen) Exam Airway Mallampati Class: III Loose/Missing/Broken Teeth: Yes Assessment and Plan Assessment Anesthesia Assessment: Anesthesia Plan Discussed Final Anesthetic Review NPO: Yes ASA Class: III Final Preanesthetic Review: Meds/Allgs Chart Reviewed, Consent Obtained/Reviewed and Anes Risks/Benef Reviewed Patient Risk: Intermediate Procedure Risk: Intermediate Anesthetic Plan Anesthetic Plan: MAC: and Agree w/ Assess. and Plan Disposition: Standard PACU
[2023-04-02 09:59] VITALS: BP 168/72; PULSE 58; RESP 18; TEMP 36.6; O2SAT 98
[2023-04-02] MEDS: Cyclopentolate 1 % Ophth Sol 2 ML DRPBTL 1 DROP EYE-RIGHT ×3 (10:00→10:03)
[2023-04-02] MEDS: Tetracaine HCl/PF 0.5% Oph Sol 4 ML DROPS 1 DROP EYE-RIGHT (10:00)
[2023-04-02] MEDS: Lactated Ringers 500 ML 50 ML IV (10:00)
[2023-04-02] MEDS: Phenylephrine HCL 2.5% Oph SoL 2 ML BOTTLE 1 DROP EYE-RIGHT ×3 (10:01→10:03)
[2023-04-02] MEDS: Ketorolac Tromethamine 0.5% Op 5 ML DROPS 1 DROP EYE-RIGHT ×3 (10:01→10:03)
[2023-04-02] MEDS: Tropicamide 1 % Ophth Sol 3 ML BTL 1 DROP EYE-RIGHT ×3 (10:01→10:03)
--- NOTE | 2023-04-02 11:26 | HO.PNOPHT ---
Ophthalmology Procedure Procedure Date of Service: 04/02/23 Ophthalmology Viscoelastic: Healon Duet Dual Pack Pro Ophthalmology Lenses: TECNIS [id number] (17) Procedure Notes: PREOPERATIVE DIAGNOSIS: Decreased visual acuity right eye secondary to cataract POSTOPERATIVE DIAGNOSIS: Same PROCEDURE: Right cataract extraction with toric multifocal intraocular lens insertion axis 109 SURGEON: Alberto Ocampo M.D. ANESTHESIA: Topical/MAC ESTIMATED BLOOD LOSS: None COMPLICATIONS: None After obtaining informed consent, the patient was brought to the operating room suite and placed in the supine position. After adequate sedation per anesthesia, topical drops of Tetracaine were given to the right eye. The eye was then prepped and draped in the usual sterile fashion. The operating room microscope was then positioned over the operative eye and a lid speculum placed. A paracentesis was created. Viscoelastic was then instilled into the anterior chamber. A three plane incision was then created temporally, utilizing a 2.85 mm keratome. Capsulotomy forceps were then utilized to create a circular tear capsulotomy. Hydrodissection and hydrodelineation were carried out until adequate mobilization of the nucleus occurred. Phacoemulsification was then utilized to remove the dense central nucleus followed by removal of the cortical material utilizing the automated aspiration irrigation unit. Viscoelastic was instilled into the posterior capsular bag followed by placement of a toric multifocal posterior chamber intraocular axis 109l ens without difficulty. The residual Viscoelastic was then removed utilizing the automated IA machine. The wound was checked and found to be watertight. The patient tolerated the procedure well and the lid speculum was removed. Intracameral injection of Vigamox 0.1 mL followed by a subtenon injection of Kenalog-40 0.2 mL were administered. The patient will be seen in the a.m.
[2023-04-02 11:50] VITALS: BP 165/68; PULSE 56; RESP 15; TEMP 36.1; O2SAT 99
== END 2023-04-02 12:01 | disposition home or self-care (01) ==
PROVIDERS: PCP Internal Medicine; Visit Provider Ophthalmology
PROC: (CPT 66985; principal; 2023-04-02 12:10)
DX: H25.11 Age-related nuclear cataract, right eye (principal); H52.4 Presbyopia; H18.413 Arcus senilis, bilateral; H43.399 Other vitreous opacities, unspecified eye; I10 Essential (primary) hypertension; E78.00 Pure hypercholesterolemia, unspecified; K21.9 Gastro-esophageal reflux disease without esophagitis; Z79.899 Other long term (current) drug therapy; Z88.8 Allergy status to other drugs, medicaments and biological substances; Z87.891 Personal history of nicotine dependence
CPT/HCPCS: 66984; J3010; J3301; V2788

== ENCOUNTER 2023-04-13 13:17 | Outpatient (AMB) | payer MEDICARE, OTHER, SELFPAY ==
[2023-04-13 13:31] VITALS: BP 100/70; PULSE 73; BMI 27.3
--- NOTE | 2023-04-13 13:31 | A.OFFVIS_ITS ---
Intake Vital Signs 04/13/23 13:31 Height 5 ft 7 in Weight 174 lb 9.698 oz BMI 27.3 BP 100/70 Blood Pressure Location Lt brachial Position Sitting Pulse 73 Pulse Source Pulse Oximeter Intake Visit Reasons: Dr. Basilio referral - tachycardia Intake Note: rylee cheek tachycardia Air Pumper Required: No Allergies bee pollen [bee stings] Allergy (Severe, Verified 04/13/23 13:38) Anaphylaxis lisinopril [LISINOPRIL] Adverse Reaction (Intermediate, Verified 04/13/23 13:38) COUGH Nvbqehg-YQC-BkA Reductase Inhibitor [[id number]-NKH-TYY REDUCTASE INHIBITOR] A dverse Reaction (Intermediate, Verified 04/13/23 13:38) MUSCLE ACHES ticagrelor [Brilinta] Adverse Reaction (Intermediate, Verified 04/13/23 13:38) Shortness of Breath Medication List - Last Reconciled 04/13/23 by NICK LayC alirocumab (Praluent Pen) 75 mg subcut Q3W alprazolam 0.5 mg PO BID PRN 30 days aspirin (Adult Low Dose Aspirin) 81 mg PO DAILY cholecalciferol (vitamin D3) 50 mcg PO DAILY coenzyme Q10 (CoQ-10) 100 mg PO DAILY epinephrine (EpiPen 2-Jc) 0.3 mg (0.3 mL) IM Q4H PRN losartan 100 mg PO DAILY metoprolol succinate ER 100 mg PO DAILY 90 days multivitamin (Daily Multi-Vitamin tablet) 1 tab PO DAILY nitroglycerin 0.4 mg sublingual PER PKG DIR PRN omeprazole 20 mg PO QAM rosuvastatin 20 mg PO DAILY HPI Dr. Basilio referral - tachycardia HPI Details Kiera is a 73-year-old female past medical history of hypertension, hyperlipidemia, paroxysmal AFib, CAD with RCA stent who presents with report of heart palpitations. Today she reports that she has been experiencing heart palpitations in recent months. She did wear a Holter monitor in March and would like to discuss the results. She feels like her heart is skipping beats. No sustained rapid or irregular heartbeats. No dizziness, presyncope, syncope, falls. She has some mild shortness of breath with activity which is not new for her. No chest discomfort or tightness. No PND, orthopnea or edema. Taking medications as directed. She does tell me that she has been under high stress as she lost her son 8 months ago unexpectedly. [facility] Medical History (Updated 04/13/23 @ 16:39 by Destiny Snow NP-C) Cataract Postmenopausal History of COVID-19 Thoracic back pain Dyspnea on exertion Former smoker, stopped smoking in distant past Right lower quadrant abdominal pain Paroxysmal atrial fibrillation HLD (hyperlipidemia) HTN (hypertension) PVD (peripheral vascular disease) CAD (coronary artery disease) Surgical History History of lung surgery (~2022) History of esophagogastroduodenoscopy (EGD) (~2020) History of breast biopsy (~1996) History of colonoscopy (~2020) History of cardiac cath (~2019) History of cholecystectomy (~2018) Stented coronary artery (~2017) Family History Father Sudden cardiac CVD (cardiovascular disease) Mother Stroke HTN (hypertension) Myocardial infarction Social History Household Members: Spouse Housing: House Are you a primary live in caregiver to a significant other at home: No Do you presently have visiting nurse or other home services: No Alcohol intake: current Alcohol intake frequency: holidays/special occasions only Alcohol type: wine Patient Tobacco Use Status: Former Tobacco user Quit Date: Tobacco use type: Cigarette Years Smoked: quit 1983 e-Cigarette/Vaping Use: Never Used Second Hand Smoke Exposure: No Current occupational status: retired Cognitive needs: No Hearing needs: No Vision needs: Yes Review of Systems Const All systems reviewed & are unremarkable except as noted in HPI and below ENT Denies dizziness Card Details: Palpitations Denies chest pain, Denies chest pain at rest, Denies chest pain with activity, Denies rapid heart rate, Denies pedal edema, Denies edema, Denies leg edema, Denies lightheadedness, Denies palpitations, Denies dyspnea, Reports dyspnea on exertion and Denies orthopnea Resp Denies cough, Denies dyspnea and Reports dyspnea on exertion GI Denies hematochezia and Denies change in stool character Musc Denies abnormal gait, Denies limited range of motion, Denies muscle cramps, Denies muscle weakness, Denies numbness, Denies radiating pain into limb, Denies stiffness and Denies tingling Neuro Denies abnormal gait, Denies dizziness, Denies numbness and Denies tingling Endo Denies palpitations Physical Exam Vital Signs: Last Vital Signs Pulse 73 04/13/23 13:31 BP 100/70 04/13/23 13:31 BMI result Body Mass Index 27.3 Const General: cooperative, healthy appearing, comfortable and no acute distress Orientation/consciousness: patient oriented x3 Neck Neck: Yes normal visual inspection Resp Effort & Inspection: normal respiratory effort Auscultation: clear to auscultation bilaterally, no crackles, no rales, no rhonchi and no wheezes Cardio Jugular venous distension: no JVD Rate: regular rate Rhythm: regular rhythm Heart sounds: S1 normal heart sound present, S2 normal heart sound present, no murmurs and no rubs Neuro General: patient oriented x3 Extrem General: Yes normal to inspection Psych Appearance: grossly normal Mental Status: mental status grossly normal Speech and movement: Normal speech and movement present Assessment & Plan Assessment & Plan (1) PAC (premature atrial contraction): Code(s): I49.1 - Atrial premature depolarization Plan: Recent reports of heart palpitations, skipping beats. EKG done 03/28/2023 shows sinus rhythm with frequent PAC. Holter monitor done 03/20/2023 for 3 days showing sinus rhythm with average heart rate 66, frequent PACs, 21% with SVT bursts, longest 8 beats. Test results reviewed with her. She does report high stress and increased anxiety this past year with the unexpected loss of her son in July. No presyncope, syncope, falls. No sustained rapid and irregular heartbeats. She has some mild shortness of breath with exertion which is not new. She is currently on metoprolol XL 100 mg daily. Unable to further titrate or add additional rate slowing medication as her average heart rate is in the 60s. Will check an echocardiogram to assess for reduction in EF, wall motion. Discussed stress reduction activities, good hydration, good sleep patterns, physical activity as tolerated. Cardiology follow-up in 1 month. If continues to have symptomatic PACs then will add Multaq to help suppress. (2) SVT (supraventricular tachycardia): Code(s): I47.1 - Supraventricular tachycardia Plan: Short bursts (3) Palpitations: Code(s): R00.2 - Palpitations (4) CAD (coronary artery disease): Comment: July 2018 PCI LUPE RCA echo EF 60-65% grade 1 diastolic dysfunction, nuclear stress test normal February 2020 Code(s): I25.10 - Atherosclerotic heart disease of [place] coronary artery without angina pectoris Qualifiers: Coronary Disease-Associated Artery/Lesion type: [place] artery [place] vs. transplanted heart: [place] heart Associated angina: without angina Qualified Code(s): I25.10 - Atherosclerotic heart disease of [place] coronary artery without angina pectoris Plan: History of CAD with RCA stent 2018. No reports of anginal sounding symptoms. Continue current management for stable CAD including aspirin indefinitely. Continue metoprolol. Continue rosuvastatin with LDL goal less than 70. She is also on Praluent. Labs done 08/14/2022 showed LDL 49. (5) HTN (hypertension): Code(s): I10 - Essential (primary) hypertension Qualifiers: Hypertension type: essential hypertension Qualified Code(s): I10 - Essential (primary) hypertension Plan: Running low today. She states typically her blood pressure is not this low. She was working outside earlier and sweating. Instructed to increase her fluid intake today and when working outside. (6) Paroxysmal atrial fibrillation: Comment: July 2018 Code(s): I48.0 - Paroxysmal atrial fibrillation Plan: Paroxysmal atrial fibrillation is listed in her problem list. Reviewed EKGs in our current system and no finding of paroxysmal AFib seen. She does have history of sinus rhythm with sinus arrhythmia and sinus rhythm with frequent PACs. She says she was never told she needed anticoagulation and has never been on blood thinning agents beyond aspirin and previously Plavix. Will further review old system to determine if paroxysmal atrial fibrillation is an accurate diagnosis for her or not. Coding Level of Care Code Est Pt Level 4 (72155) Diagnoses PAC (premature atrial contraction) I49.1 SVT (supraventricular tachycardia) I47.1 Palpitations R00.2 Coronary artery disease involving [place] coronary artery of [place] heart without angina pectoris I25.10 Coronary Disease-Associated Artery/Lesion type: [place] artery [place] vs. transplanted heart: [place] heart Associated angina: without angina Essential hypertension I10 Hypertension type: essential hypertension Paroxysmal atrial fibrillation I48.0 Time Spent (min) 26
== END 2023-04-13 14:09 | disposition home or self-care (01) ==
PROVIDERS: PCP Internal Medicine; Referring Provider Internal Medicine; Visit Provider Nurse Practitioner Family
DX: I49.1 Atrial premature depolarization (principal); I47.1 Supraventricular tachycardia; R00.2 Palpitations; I25.10 Atherosclerotic heart disease of native coronary artery without angina pectoris; I10 Essential (primary) hypertension; I48.0 Paroxysmal atrial fibrillation
CPT/HCPCS: 99214

== ENCOUNTER → 2023-04-13 13:17 | Outpatient (BNVA) | payer MEDICARE, OTHER, SELFPAY | PROVIDERS: PCP Internal Medicine; Referring Provider Internal Medicine; Visit Provider Nurse Practitioner Family | DX: I49.1 Atrial premature depolarization (principal); I47.1 Supraventricular tachycardia; R00.2 Palpitations; I25.10 Atherosclerotic heart disease of native coronary artery without angina pectoris; I10 Essential (primary) hypertension; I48.0 Paroxysmal atrial fibrillation; Z79.82 Long term (current) use of aspirin; Z79.899 Other long term (current) drug therapy | CPT/HCPCS: 99212 ==

== ENCOUNTER 2023-04-16 08:46 | Day surgery (SDC) | payer MEDICARE, OTHER, SELFPAY ==
[2023-03-28 14:27] VITALS: BMI 27.2
--- NOTE | 2023-04-13 07:47 | MHC.SHP ---
Pre-Procedural Eval Section A Date of Service: 04/13/23 The patient is an INPATIENT: No Changes since office visit: No Cold of Flu in the past 2 weeks, No New Medical Problems, No Changes in Medication and No Patient answered all questions The History & Physical has been completed within 30 days and I have reviewed it.: Yes Section B Chief Complaint: Age-related nuclear cataract, left eye Allergies: Allergies Allergy/AdvReac Type Severity Reaction Status Date / Time bee pollen [bee stings] Allergy Severe Anaphylaxis Verified 03/28/23 14:23 lisinopril [LISINOPRIL] AdvReac Intermediate COUGH Verified 03/28/23 14:23 Kcjgrmc-CNF-PjP Reductase AdvReac Intermediate MUSCLE Verified 03/28/23 14:23 Inhibitor ACHES [[id number] REDUCTASE INHIBITOR] ticagrelor [Brilinta] AdvReac Intermediate Shortness Verified 03/28/23 14:23 of Breath Plan Diagnosis/Plan: Unchanged I have reviewed the history and physical and performed a pertinent physical examination on my patient. No changes have occurred unless specified. Time Spent With Patient Time: Total time managing care of this patient today ____ minutes.
--- NOTE | 2023-04-13 12:18 | HO.ANESPROP2 ---
Documented by User: Lizzette Hare NP 04/13/23 12:19 HPI - Anesthesia Eval Consult details Narrative: 73yo F for Left Cataract Extraction IOL Insertion PCP cleared Right eye done 04/02/23 with TIVA: Fent 50 PMFSH Active Problems Active Problems: All Active Problems (Updated 03/30/23 @ 17:24 by Esvin Basilio MD) SVT (supraventricular tachycardia) (Acute) Pulmonary nodule (Acute) GERD (gastroesophageal reflux disease) (Acute) Hyperbilirubinemia (Acute) Emphysema lung (Acute) Generalized anxiety disorder (Acute) Family history of cerebral aneurysm (Acute) Palpitations (Acute) Postmenopausal (Acute) CAD (coronary artery disease) (Acute) HTN (hypertension) (Acute) PVD (peripheral vascular disease) (Acute) HLD (hyperlipidemia) (Acute) Past Medical History Medical History Cataract Postmenopausal History of COVID-19 Thoracic back pain Dyspnea on exertion Former smoker, stopped smoking in distant past Right lower quadrant abdominal pain Paroxysmal atrial fibrillation HLD (hyperlipidemia) HTN (hypertension) PVD (peripheral vascular disease) CAD (coronary artery disease) Family History Family History Father Sudden cardiac CVD (cardiovascular disease) Mother Stroke HTN (hypertension) Myocardial infarction Family history of problems with anesthesia: No Surgical History Surgical History History of lung surgery (~2022) History of esophagogastroduodenoscopy (EGD) (~2020) History of breast biopsy (~1996) History of colonoscopy (~2020) History of cardiac cath (~2019) History of cholecystectomy (~2018) Stented coronary artery (~2017) History of Problems with Anesthesia: No Social History Social History Household Members: Spouse Housing: House Are you a primary resident care manager rn to a significant other at home: No Do you presently have visiting nurse or other home services: No Alcohol intake: current Alcohol intake frequency: holidays/special occasions only Alcohol type: wine Patient Tobacco Use Status: Former Tobacco user Quit Date: Tobacco use type: Cigarette Years Smoked: quit 1983 e-Cigarette/Vaping Use: Never Used Second Hand Smoke Exposure: No Use of substances other than those prescribed or required for medical reasons: No Have you been hit, kicked, punched, or otherwise hurt by someone within the past year? If so, by whom?: No Are you DNR?: No Advance Directives: No Advance Directives Information Provided: Yes Advance Directives on File: No Recently lost weight without trying: No Nutrition Risks: No Nutritional Risk Current occupational status: retired Cognitive needs: No Hearing needs: No Vision needs: Yes Meds Allergies Allergy/AdvReac Type Severity Reaction Status Date / Time bee pollen [bee stings] Allergy Severe Anaphylaxis Verified 04/13/23 13:38 lisinopril [LISINOPRIL] AdvReac Intermediate COUGH Verified 04/13/23 13:38 Adpphwo-DPO-RnD Reductase AdvReac Intermediate MUSCLE Verified 04/13/23 13:38 Inhibitor ACHES [[id number]-[id number]-YEU REDUCTASE INHIBITOR] ticagrelor [Brilinta] AdvReac Intermediate Shortness Verified 04/13/23 13:38 of Breath Home Medications Medication Instructions Recorded Confirmed Last Taken Type aspirin 81 mg tablet,delayed 81 mg PO DAILY 05/24/20 04/13/23 Unknown History release (Adult Low Dose Aspirin) nitroglycerin 0.4 mg sublingual 0.4 mg sublingual PER PKG DIR PRN 05/24/20 04/13/23 Unknown History tablet Chest Pain cholecalciferol (vitamin D3) 50 50 mcg PO DAILY 06/09/20 04/13/23 Unknown History mcg (2,000 unit) capsule multivitamin (Daily Multi-Vitamin 1 tab PO DAILY 06/09/20 04/13/23 Unknown History tablet) coenzyme Q10 100 mg capsule 100 mg PO DAILY 09/04/22 04/13/23 Unknown History (CoQ-10) alirocumab 75 mg/mL subcutaneous 75 mg subcut Q3W 12/08/22 04/13/23 Unknown History pen injector (Praluent Pen) Exam Exam Date and Time: April 13, 2023 1218 Height,Weight and Vital Signs: Height 5 ft 7 in Weight 78.925 kg Assessment and Plan Assessment Anesthesia Assessment: Chart Reviewed Final Anesthetic Review Family History of Problems with Anesthesia: No History of Problems with Anesthesia: No Documented by User: Chrissy Oneal MD 04/16/23 09:48 PMF Active Problems Active Problems: All Active Problems (Updated 04/16/23 @ 09:30 by Chrissy Oneal MD) SVT (supraventricular tachycardia) (Acute) Pulmonary nodule (Acute) GERD (gastroesophageal reflux disease) (Acute) Hyperbilirubinemia (Acute) Emphysema lung (Acute) Generalized anxiety disorder (Acute) Family history of cerebral aneurysm (Acute) Palpitations (Acute) Postmenopausal (Acute) CAD (coronary artery disease) (Acute) HTN (hypertension) (Acute) PVD (peripheral vascular disease) (Acute) HLD (hyperlipidemia) (Acute) Denies recent chest pain Past Medical History Medical History Cataract Postmenopausal History of COVID-19 Thoracic back pain Dyspnea on exertion Former smoker, stopped smoking in distant past Right lower quadrant abdominal pain Paroxysmal atrial fibrillation HLD (hyperlipidemia) HTN (hypertension) PVD (peripheral vascular disease) CAD (coronary artery disease) Family History Family History Father Sudden cardiac CVD (cardiovascular disease) Mother Stroke HTN (hypertension) Myocardial infarction Surgical History Surgical History History of lung surgery (~2022) History of esophagogastroduodenoscopy (EGD) (~2020) History of breast biopsy (~1996) History of colonoscopy (~2020) History of cardiac cath (~2019) History of cholecystectomy (~2018) Stented coronary artery (~2017) Social History Social History Household Members: Spouse Housing: House Are you a primary resident care manager rn to a significant other at home: No Do you presently have visiting nurse or other home services: No Alcohol intake: current Alcohol intake frequency: holidays/special occasions only Alcohol type: wine Patient Tobacco Use Status: Former Tobacco user Quit Date: Tobacco use type: Cigarette Years Smoked: quit 1983 e-Cigarette/Vaping Use: Never Used Second Hand Smoke Exposure: No Use of substances other than those prescribed or required for medical reasons: No Have you been hit, kicked, punched, or otherwise hurt by someone within the past year? If so, by whom?: No Are you DNR?: No Advance Directives: No Advance Directives Information Provided: Yes Advance Directives on File: No Recently lost weight without trying: No Nutrition Risks: No Nutritional Risk Current occupational status: retired Cognitive needs: No Hearing needs: No Vision needs: Yes Meds Allergies Allergy/AdvReac Type Severity Reaction Status Date / Time bee pollen [bee stings] Allergy Severe Anaphylaxis Verified 04/13/23 13:38 lisinopril [LISINOPRIL] AdvReac Intermediate COUGH Verified 04/13/23 13:38 Iwtsixb-IUO-OxO Reductase AdvReac Intermediate MUSCLE Verified 04/13/23 13:38 Inhibitor ACHES [MSZAEXG-OYB-CER REDUCTASE INHIBITOR] ticagrelor [Brilinta] AdvReac Intermediate Shortness Verified 04/13/23 13:38 of Breath Home Medications Medication Instructions Recorded Confirmed Last Taken Type aspirin 81 mg tablet,delayed 81 mg PO DAILY 05/24/20 04/13/23 Unknown History release (Adult Low Dose Aspirin) nitroglycerin 0.4 mg sublingual 0.4 mg sublingual PER PKG DIR PRN 05/24/20 04/13/23 Unknown History tablet Chest Pain cholecalciferol (vitamin D3) 50 50 mcg PO DAILY 06/09/20 04/13/23 Unknown History mcg (2,000 unit) capsule multivitamin (Daily Multi-Vitamin 1 tab PO DAILY 06/09/20 04/13/23 Unknown History tablet) coenzyme Q10 100 mg capsule 100 mg PO DAILY 09/04/22 04/13/23 Unknown History (CoQ-10) alirocumab 75 mg/mL subcutaneous 75 mg subcut Q3W 12/08/22 04/13/23 Unknown History pen injector (Praluent Pen) Exam Height,Weight and Vital Signs: Height 5 ft 7 in Weight 78.925 kg Vital Signs Temp Pulse Resp BP Pulse Ox O2 Del Method 04/16/23 09:12 97.2 F 58 18 146/68 H 98 Room Air Airway Mallampati Class: II TM Dist: >3cm Neck ROM: Full Partial: Lower Loose/Missing/Broken Teeth: Yes (DEnies broken or loose teeth) Heart: RRR Lungs: CTAB Assessment and Plan Assessment Anesthesia Assessment: Anesthesia Plan Discussed Final Anesthetic Review NPO: Yes ASA Class: III Final Preanesthetic Review: No Changes in Pt Med Stat, Meds/Allgs Chart Reviewed, Consent Obtained/Reviewed and Anes Risks/Benef Reviewed Patient Risk: Intermediate Procedure Risk: Low Assessment/Block/Sedation in SS: Assess/Block/Sedation-SS Anesthetic Plan Anesthetic Plan: MAC: Disposition: Standard PACU
[2023-04-16 09:12] VITALS: BP 146/68; PULSE 58; RESP 18; TEMP 36.2; O2SAT 98
[2023-04-16] MEDS: Tetracaine HCl/PF 0.5% Oph Sol 4 ML DROPS 1 DROP EYE-LEFT (09:23)
[2023-04-16] MEDS: Phenylephrine HCL 2.5% Oph SoL 2 ML BOTTLE 1 DROP EYE-LEFT ×3 (09:24→09:30)
[2023-04-16] MEDS: Tropicamide 1 % Ophth Sol 3 ML BTL 1 DROP EYE-LEFT ×3 (09:24→09:29)
[2023-04-16] MEDS: Ketorolac Tromethamine 0.5% Op 5 ML DROPS 1 DROP EYE-LEFT ×3 (09:24→09:30)
[2023-04-16] MEDS: Cyclopentolate 1 % Ophth Sol 2 ML DRPBTL 1 DROP EYE-LEFT ×3 (09:27→09:31)
[2023-04-16] MEDS: Lactated Ringers 500 ML 50 ML IV (09:33)
--- NOTE | 2023-04-16 09:57 | HO.PNOPHT ---
Ophthalmology Procedure Procedure Date of Service: 04/16/23 Ophthalmology Viscoelastic: Healon Duet Dual Pack Pro Ophthalmology Lenses: TECNIS ZXR00 (18) Procedure Notes: PREOPERATIVE DIAGNOSIS: Decreased visual acuity left eye secondary to cataract POSTOPERATIVE DIAGNOSIS: Same PROCEDURE: Left cataract extraction with imultifocal ntraocular lens insertion SURGEON: Alberto Ocampo M.D. ANESTHESIA: Topical/MAC ESTIMATED BLOOD LOSS: None COMPLICATIONS: None After obtaining informed consent, the patient was brought to the operation room suite and placed in the supine position. After adequate sedation per anesthesia, topical drops of Tetracaine were given to the left eye. The eye was then prepped and draped in the usual sterile fashion. The operating room microscope was then positioned over the operative eye and a lid speculum placed. A paracentesis was created. Viscoelastic was then instilled into the anterior chamber. A three plane incision was then created temporally, utilizing a 2.85 mm keratome. Capsulotomy forceps were then utilized to create a circular tear capsulotomy. Hydrodissection and hydrodelineation were carried out until adequate mobilization of the nucleus occurred. Phacoemulsification was then utilized to remove the dense central nucleus followed by removal of the cortical material utilizing the automated aspiration irrigation unit. Viscoat elastic was instilled into the posterior capsular bag followed by placement of a posterior chamber intraocular lens without difficulty. The residual Viscoat elastic was then removed utilizing the automated IA machine. The wound was check and found to be watertight. The patient tolerated the procedure well and the lid speculum was removed. Intracameral injection of Vigamox 0.1 mL followed by a subtenon injection of Kenalog-40 0.2 mL were administered. The patient will be seen in the a.m.
[2023-04-16 10:17] VITALS: BP 118/58; PULSE 56; RESP 18; TEMP 36.3; O2SAT 99
== END 2023-04-16 10:33 | disposition home or self-care (01) ==
PROVIDERS: PCP Internal Medicine; Visit Provider Ophthalmology
PROC: (CPT 66985; principal; 2023-04-16 09:40)
DX: H25.12 Age-related nuclear cataract, left eye (principal); H52.4 Presbyopia; H18.413 Arcus senilis, bilateral; I10 Essential (primary) hypertension; I48.0 Paroxysmal atrial fibrillation; I25.10 Atherosclerotic heart disease of native coronary artery without angina pectoris; E78.00 Pure hypercholesterolemia, unspecified; Z79.82 Long term (current) use of aspirin; Z79.899 Other long term (current) drug therapy; Z88.8 Allergy status to other drugs, medicaments and biological substances; Z87.891 Personal history of nicotine dependence
CPT/HCPCS: 66984; J2250; J3010; J3301; V2788

== ENCOUNTER 2023-05-18 12:59 | Outpatient (AMB) | payer MEDICARE, OTHER, SELFPAY ==
[2023-05-18 13:15] VITALS: BP 114/72; PULSE 64; BMI 28.1
--- NOTE | 2023-05-18 13:15 | A.OFFVIS_ITS ---
Intake Vital Signs 05/18/23 13:15 Height 5 ft 7 in Weight 179 lb 7.3 oz BMI 28.1 BP 114/72 Blood Pressure Location Lt brachial Position Sitting Pulse 64 Pulse Source Pulse Oximeter Intake Visit Reasons: 4W follow up Intake Note: 4w f/u patients having s/b during physical activities Field Administrator Required: No Allergies bee pollen [bee stings] Allergy (Severe, Verified 05/18/23 13:17) Anaphylaxis lisinopril [LISINOPRIL] Adverse Reaction (Intermediate, Verified 05/18/23 13:17) COUGH Blgtwiz-CDL-XaE Reductase Inhibitor [MEXREEW-OSX-WGH REDUCTASE INHIBITOR] Adverse Reaction (Intermediate, Verified 05/18/23 13:17) MUSCLE ACHES ticagrelor [Brilinta] Adverse Reaction (Intermediate, Verified 05/18/23 13:17) Shortness of Breath Medication List - Last Reconciled 05/18/23 by NICK LayC alirocumab (Praluent Pen) 75 mg subcut Q3W alprazolam 0.5 mg PO BID PRN 30 days aspirin (Adult Low Dose Aspirin) 81 mg PO DAILY cholecalciferol (vitamin D3) 50 mcg PO DAILY coenzyme Q10 (CoQ-10) 100 mg PO DAILY epinephrine (EpiPen 2-Jc) 0.3 mg (0.3 mL) IM Q4H PRN hydrochlorothiazide 12.5 mg PO QAM losartan 100 mg PO DAILY metoprolol succinate ER 100 mg PO DAILY 90 days multivitamin (Daily Multi-Vitamin tablet) 1 tab PO DAILY nitroglycerin 0.4 mg sublingual PER PKG DIR PRN omeprazole 20 mg PO QAM rosuvastatin 20 mg PO DAILY HPI 4W follow up HPI Details Kiera is a 73-year-old female with past medical history of hypertension, hyperlipidemia, PACs, CAD with RCA stent who presents for follow-up of heart palpitations. Following her last visit her current and old record were reviewed and no EKGs or test confirming history of paroxysmal atrial fibrillation. Today she reports she has been doing better recently compared to a few months ago. Her palpitations are less. She continues to have high stress but is currently feeling better. Her son unexpectedly 9 months ago and this is causing great stress in her life. She has been wearing less about the palpitations. She has no chest discomfort at rest or with activity. No sh ortness of breath, presyncope, syncope, PND, orthopnea or edema. She is taking her meds as directed. [facility] Medical History (Updated 05/18/23 @ 15:52 by Destiny Snow NP-C) Cataract Postmenopausal History of COVID-19 Thoracic back pain Dyspnea on exertion Former smoker, stopped smoking in distant past Right lower quadrant abdominal pain Paroxysmal atrial fibrillation HLD (hyperlipidemia) HTN (hypertension) PVD (peripheral vascular disease) CAD (coronary artery disease) Surgical History History of lung surgery (~2022) History of esophagogastroduodenoscopy (EGD) (~2020) History of breast biopsy (~1996) History of colonoscopy (~2020) History of cardiac cath (~2019) History of cholecystectomy (~2018) Stented coronary artery (~2017) Family History Father Sudden cardiac CVD (cardiovascular disease) Mother Stroke HTN (hypertension) Myocardial infarction Social History Household Members: Spouse Housing: House Are you a primary disabilities caregiver to a significant other at home: No Do you presently have visiting nurse or other home services: No Alcohol intake: current Alcohol intake frequency: holidays/special occasions only Alcohol type: wine Patient Tobacco Use Status: Former Tobacco user Quit Date: Tobacco use type: Cigarette Years Smoked: quit 1983 e-Cigarette/Vaping Use: Never Used Second Hand Smoke Exposure: No Current occupational status: retired Cognitive needs: No Hearing needs: No Vision needs: Yes Review of Systems Const All systems reviewed & are unremarkable except as noted in HPI and below ENT Denies dizziness Card Denies chest pain, Denies chest pain at rest, Denies chest pain with activity, Denies rapid heart rate, Denies pedal edema, Denies edema, Denies leg edema, Denies lightheadedness, Denies palpitations, Denies dyspnea, Reports dyspnea on exertion and Denies orthopnea Resp Denies cough, Denies dyspnea and Reports dyspnea on exertion GI Denies hematochezia and Denies change in stool character Musc Denies abnormal gait, Denies limited range of motion, Denies muscle cramps, Denies muscle weakness, Denies numbness, Denies radiating pain into limb, Denies stiffness and Denies tingling Neuro Denies abnormal gait, Denies dizziness, Denies numbness and Denies tingling Endo Denies palpitations Physical Exam Vital Signs: Last Vital Signs Pulse 64 05/18/23 13:15 BP 114/72 05/18/23 13:15 BMI result Body Mass Index 28.1 Const General: cooperative, healthy appearing, comfortable and no acute distress Orientation/consciousness: patient oriented x3 Neck Neck: Yes normal visual inspection Resp Effort & Inspection: normal respiratory effort Auscultation: clear to auscultation bilaterally, no crackles, no rales, no rhonchi and no wheezes Cardio Jugular venous distension: no JVD Rate: regular rate Rhythm: regular rhythm Heart sounds: S1 normal heart sound present, S2 normal heart sound present, no murmurs and no rubs Neuro General: patient oriented x3 Extrem General: Yes normal to inspection, No no pedal edema and No calf tenderness Psych Appearance: grossly normal Mental Status: mental status grossly normal Speech and movement: Normal speech and movement present Assessment & Plan Assessment & Plan (1) PAC (premature atrial contraction): Code(s): I49.1 - Atrial premature depolarization Plan: Recent reports of heart palpitations, skipping beats. EKG done 03/28/2023 shows sinus rhythm with frequent PAC. Holter monitor done 03/20/2023 for 3 days showing sinus rhythm with average heart rate 66, frequent PACs, 21% with SVT bursts, longest 8 beats. On follow-up visit she reported high stress and increased anxiety this past year with the unexpected loss of her son in July. No presyncope, syncope, falls. No sustained rapid and irregular heartbeats. She has some mild shortness of breath with exertion which is not new. She is currently on metoprolol XL 100 mg daily and was not able to further titrate as her RV edge heart rate is in the 60s. Plan was to use Multaq if her symptoms persisted. Today she reports that overall her palpitations have lessened. She still has high stress but is tolerating things better at this time. Echocardiogram was ordered last visit and will be done later this week. Plan to call her with results. If EF is down then use of antiarrhythmic to suppress arrhythmia will likely be needed. If EF is normal then will continue current management and plan for repeat Holter prior to her next visit in 3 months. Cardiology follow-up 3 months, sooner if needed. Reviewed stress reduction activities, good hydration, good sleep patterns, physical activity as tolerated. (2) SVT (supraventricular tachycardia): Code(s): I47.1 - Supraventricular tachycardia Plan: Short bursts (3) Palpitations: Code(s): R00.2 - Palpitations Plan: Improved (4) CAD (coronary artery disease): Comment: July 2018 PCI LUPE RCA echo EF 60-65% grade 1 diastolic dysfunction, nuclear stress test normal February 2020 Code(s): I25.10 - Atherosclerotic heart disease of [place] coronary artery without angina pectoris Qualifiers: Associated angina: without angina Coronary Disease-Associated Artery/Lesion type: [place] artery [place] vs. transplanted heart: [place] heart Qualified Code(s): I25.10 - Atherosclerotic heart disease of [place] coronary artery without angina pectoris Plan: History of CAD with RCA stent 2018. No reports of anginal sounding symptoms. Continue current management for stable CAD including aspirin indefinitely. Continue metoprolol. Continue rosuvastatin with LDL goal less than 70. She is also on Praluent. Labs done 08/14/2022 showed LDL 49. (5) HTN (hypertension): Code(s): I10 - Essential (primary) hypertension Qualifiers: Hypertension type: essential hypertension Qualified Code(s): I10 - Essential (primary) hypertension Plan: Blood pressure good at present time. No medication changes made Orders: Orders ECG 3 day holter monitor 08/06/23 I47.1 - Supraventricular tachycardia, I49.1 - Atrial premature depolarization Coding Level of Care Code Est Pt Level 3 (02663) Diagnoses PAC (premature atrial contraction) I49.1 SVT (supraventricular tachycardia) I47.1 Palpitations R00.2 Coronary artery disease involving [place] coronary artery of [place] heart without angina pectoris I25.10 Associated angina: without angina Coronary Disease-Associated Artery/Lesion type: [place] artery [place] vs. transplanted heart: [place] heart Essential hypertension I10 Hypertension type: essential hypertension Time Spent (min) 22
== END 2023-05-18 13:47 | disposition home or self-care (01) ==
PROVIDERS: PCP Internal Medicine; Visit Provider Nurse Practitioner Family
DX: I49.1 Atrial premature depolarization (principal); I47.1 Supraventricular tachycardia; R00.2 Palpitations; I25.10 Atherosclerotic heart disease of native coronary artery without angina pectoris; I10 Essential (primary) hypertension
CPT/HCPCS: 99213

== ENCOUNTER → 2023-05-18 12:59 | Outpatient (BNVA) | payer MEDICARE, OTHER, SELFPAY | PROVIDERS: PCP Internal Medicine; Visit Provider Nurse Practitioner Family | DX: I49.1 Atrial premature depolarization (principal); I47.10 Supraventricular tachycardia, unspecified; R00.2 Palpitations; I25.10 Atherosclerotic heart disease of native coronary artery without angina pectoris | CPT/HCPCS: 99212 ==

== ENCOUNTER → 2023-05-23 07:47 | Outpatient (REF) | payer MEDICARE, OTHER, SELFPAY ==
--- NOTE | 2023-05-23 07:50 | CA_ITS ---
Transthoracic Echocardiogram Patient (Last, First, Middle): Kiera Lopez E Gender: Female Date of : 1950 Age: 73 Procedure Date: 05/23/2023 Procedure Type: Transthoracic Echocardiogram Location: OP Height: 170.18 cm Weight: 79.38 kg BSA: 1.91 m2 Heart Rate: bpm BP: 118 / 56 mmHg Scrap Charger: Referring MD: Destiny Snow FUNERAL HOME DIRECTORAtiya Symptoms: I48.0 - Paroxysmal atrial fibrillation Study Quality: Good ECG Rhythm: Sinus Conclusions: - The left ventricular systolic function is normal. The calculated ejection fraction is 60% by biplane method. - No obvious valvular pathology seen on this study. Findings Left Ventricle Normal left ventricular cavity size. There is normal left ventricular wall thickness. The left ventricular systolic function is normal. The calculated ejection fraction is 60% by biplane method. There is no evidence of regional wall motion abnormalities. Diastolic function is normal for age. Right Ventricle Normal right ventricular cavity size and systolic function. Atria The left atrium is mildly dilated. The right atrium is normal in size. Aortic Valve There is a normal trileaflet aortic valve. There is no aortic valve stenosis. There is no aortic valve regurgitation. Mitral Valve The mitral valve appears normal. There is trace mitral valve regurgitation. There is no mitral valve stenosis. Pulmonic Valve The pulmonic valve is likely normal. Tricuspid Valve Normal tricuspid valve structure. There is trace tricuspid valve regurgitation. There is no evidence of pulmonary hypertension. Great Vessels The asc aorta is normal in size. Venous The inferior vena cava is normal in size and collapses greater than 50% with inspiration. Pericardium/Pleural There is no evidence of pericardial effusion. Prior Study Comparison No significant change compared to prior study dated: 06/12/2018. Recommendations, Care & Conclusions No obvious valvular pathology seen on this study. Measurements 2D Linear Measurements IVSd: 1.04 0.6-0.9/0.6-1.0 cm LVIDd: 4.00 3.9-5.3/4.2-5.9 cm LVIDd Index: 2.09 2.4-3.2/2.2-3.1 cm/m2 LVIDs: 2.81 2.0-3.6 cm LVPWd: 1.04 0.7-1.1 cm Ao Root: 2.70 2.1-3.5 cm LA Diam: 4.60 2.7-3.8/3.0-4.0 cm LAIDs Index: 2.41 1.5-2.3 cm/m2 LV Mass: 167.19 67-162/88-224 g LV Mass Index: 87.53 43-95/49-115 g/m2 LVOT Diam: 2.20 3.0+(-)1.3 cm 2D Systolic Function EF 4C: 63.00 >55% EF 2C: 59.60 >55% EF BiP: 60.40 >55% Mitral Valve MV Pk E: 0.85 MV PK A: 0.68 MV Decel Time: 316.00 E/A: 1.30 E'Lateral: 9.03 E'Medial: 5.22 E/E' Med: 16.30 E/E' Lat: 9.40 PHT: 92.00 MVA PHT: 2.39 Decel [place]: 2.70 Aortic Valve AoV Pk Abhay: 1.36 AoV Mn Abhay: 0.88 AoV VTI: 0.38 AoV Pk Grad: 7.00 Aov Mn Grad: 4.00 NELLA Cont.VTI: 2.15 LVOT LVOT Pk Abhay: 0.80 LVOT Mn Abhay: 0.48 LVOT VTI: 0.21 LVOT Pk Grad: 3.00 LVOT Mn Grad: 1.00 LVOT Diam: 2.20 LVOT Area: 3.80 Diastolic Function MV Pk E: 0.85 MV Pk A: 0.68 E/A: 1.30 E'Medial: 5.22 E/E' Med: 16.30 E' Laterial: 9.03 E/E' Lat: 9.40 Right Ventricle TAPSE (mm): 25.00 TVS' Abhay: 14.00 Tricuspid Valve TR Pk Abhay: 2.42 TR Pk Grad: 23.00 RA Press: 3.00 RVSP: 26.00 Great Vessels Aorta Ao Root-2D: 2.70 2.0-3.7 cm Ao Asc: 3.00 2.1-3.4 cm Pulmonary Valve PV Pk Abhay: 0.70 Peak PV Grad: 2.00 Updated in Other Vendor System with Status of Final Gary Cooper MD electronically signed on 05/25/2023 2:33:44 PM with status of Final
== END ==
LOC: HO.CARD 07:47
PROVIDERS: PCP Internal Medicine; Visit Provider Nurse Practitioner Family
DX: I48.0 Paroxysmal atrial fibrillation (principal); I25.10 Atherosclerotic heart disease of native coronary artery without angina pectoris
CPT/HCPCS: 93306

== ENCOUNTER → 2023-05-23 07:50 | Outpatient (BNV) | payer MEDICARE, OTHER, SELFPAY | PROVIDERS: PCP Internal Medicine; Visit Provider Internal Medicine | DX: I48.0 Paroxysmal atrial fibrillation (principal) | CPT/HCPCS: 93306 ==

== ENCOUNTER 2023-05-25 08:12 | Outpatient (AMB) | payer MEDICARE, OTHER, SELFPAY ==
[2023-05-25 08:26] VITALS: BP 132/70; PULSE 49; O2SAT 98; BMI 28.0
--- NOTE | 2023-05-25 08:26 | MHC.PC.OV ---
Vital Signs 05/25/23 08:26 05/25/23 08:45 Height 5 ft 7 in Weight 179 lb BMI 28.0 BP 132/70 Blood Pressure Location Lt brachial Position Sitting Pulse 49 L 52 Pulse Source Pulse Oximeter Auscultation Pulse Oximetry (%) 98 Oxygen Delivery Method Room Air Intake Visit Reasons: follow up Allergies bee pollen [bee stings] Allergy (Severe, Verified 05/25/23 08:26) Anaphylaxis lisinopril [LISINOPRIL] Adverse Reaction (Intermediate, Verified 05/25/23 08:26) COUGH Afuhlqr-PJL-NuT Reductase Inhibitor [GLTTBBE-IWM-DES REDUCTASE INHIBITOR] Adverse Reaction (Intermediate, Verified 05/25/23 08:26) MUSCLE ACHES ticagrelor [Brilinta] Adverse Reaction (Intermediate, Verified 05/25/23 08:26) Shortness of Breath Medication List - Last Reconciled 05/25/23 by Esvin Basilio MD alirocumab (Praluent Pen) 75 mg subcut Q3W alprazolam 0.5 mg PO BID PRN 30 days aspirin (Adult Low Dose Aspirin) 81 mg PO DAILY cholecalciferol (vitamin D3) 50 mcg PO DAILY coenzyme Q10 (CoQ-10) 100 mg PO DAILY epinephrine (EpiPen 2-Jc) 0.3 mg (0.3 mL) IM Q4H PRN hydrochlorothiazide 12.5 mg PO QAM losartan 100 mg PO DAILY metoprolol succinate ER 100 mg PO DAILY 90 days multivitamin (Daily Multi-Vitamin tablet) 1 tab PO DAILY nitroglycerin 0.4 mg sublingual PER PKG DIR PRN omeprazole 20 mg PO QAM rosuvastatin 20 mg PO DAILY Tobacco use date assessed: 09/04/22 Fall risk assessment: No Falls in past year Last assessed Fall Risk: 05/25/23 Dental Screening Dental Screen Date: 05/25/23 Did you have a dental visit in the last 12 months?: Yes Did you have a dental problem in the last 6 months where you did not have access to dental care?: No Was dental information given to patient?: Patient has dentist HPI follow up HPI Details 73-year-old overweight female with a history of hypertension hypercholesterol E coronary artery disease GERD COPD SVT coming in for follow-up. Patient was last seen in March for preop evaluation for cataract surgery. Patient did have the cataract surgery and is here for follow-up. Patient follows up with Cardiology noted no EKG confirming paroxysmal atrial fibrillation history patient on metoprolol 100 mg once a day and has reported stable cardiac events despite high stress with the of son. Echocardiogram was ordered if EF normal will continue current management but if EF is down advised anti rhythmic.. Patient continues to have episodes of palpitations but according to the workup it has been in the normal sinus to the point of bradycardia. Patient feels tired discussed that the medication can do it but because of the bradycardia cannot increase the metoprolol. Patient's blood work is due in August request have been made otherwise no nausea no vomiting no chest pains no bowel bladder symptoms. Patient asks if alprazolam can be increased in amount. Patient is coping declined any refer for counseling [facility] Medical History (Updated 05/18/23 @ 15:52 by Destiny Snow, YARELIS-C) Cataract Postmenopausal History of COVID-19 Thoracic back pain Dyspnea on exertion Former smoker, stopped smoking in distant past Right lower quadrant abdominal pain Paroxysmal atrial fibrillation HLD (hyperlipidemia) HTN (hypertension) PVD (peripheral vascular disease) CAD (coronary artery disease) Surgical History History of lung surgery (~2022) History of esophagogastroduodenoscopy (EGD) (~2020) History of breast biopsy (~1996) History of colonoscopy (~2020) History of cardiac cath (~2019) History of cholecystectomy (~2018) Stented coronary artery (~2017) Family History Father Sudden cardiac CVD (cardiovascular disease) Mother Stroke HTN (hypertension) Myocardial infarction Social History Household Members: Spouse Housing: House Are you a primary home health care worker to a significant other at home: No Do you presently have visiting nurse or other home services: No Alcohol intake: current Alcohol intake frequency: holidays/special occasions only Alcohol type: wine Patient Tobacco Use Status: Former Tobacco user Quit Date: Tobacco use type: Cigarette Years Smoked: quit 1983 e-Cigarette/Vaping Use: Never Used Second Hand Smoke Exposure: No Current occupational status: retired Cognitive needs: No Hearing needs: No Vision needs: Yes Questionnaire PHQ-9 Over the last 2 weeks, how often have you been bothered by any of the following problems? 1. Little interest or pleasure in doing things: several days 2. Feeling down, depressed, or hopeless: not at all 3. Trouble falling or staying asleep, or sleeping too much: more than half the days 4. Feeling tired or having little energy: not at all 5. Poor appetite or overeating: not at all 6. Feeling bad about yourself - or that you are a failure or have let yourself or your family down: not at all 7. Trouble concentrating on things, such as reading the newspaper or watching television: not at all 8. Moving or speaking so slowly that other people could have noticed. Or the opposite - being so fidgety or restless that you have been moving around a lot more than usual: not at all 9. Thoughts that you would be better off or of hurting yourself in some way: not at all Total score: 3 Depression Screening Interpretation: Negative Depression Screening Done: Yes Source: Developed by Drs. Harrison Mejia, Radha Koch, Huey Andrews and colleagues, with an educational donny from [employer]. Thrive Questionnaire Date Thrive assessed: 09/04/22 AUDIT C Alcohol Use Questionnaire (AUDIT-C) 1. How often do you have a drink containing alcohol?: Monthly or less 2. How many drinks containing alcohol do you have on a typical day when you are drinking?: 1 or 2 3. How often do you have six or more drinks on one occasion?: Never Total Score: 1 TWILA-7 AMB Questionnaire TWILA-7 Date TWILA - 7 assessed: 09/04/22 Source: Developed by Drs. Harirson Mejia, Radha Koch, Huey Andrews and colleagues, with an educational donny from [employer]. Physical exam (Primary Care) Vital Signs: Last Vital Signs Pulse 49 L 05/25/23 08:26 BP 132/70 05/25/23 08:26 Pulse Ox 98 05/25/23 08:26 Oxygen Delivery Method Room Air 05/25/23 08:26 BMI result Body Mass Index 28.0 Tobacco/Smoking Status: Tobacco use Status Tobacco use date assessed 09/04/22 05/25/23 08:27 Patient Tobacco Use Status Former Tobacco user 05/25/23 08:27 Tobacco use type Cigarette 05/25/23 08:27 e-Cigarette/Vaping Use Never Used 05/25/23 08:27 PHQ-9: PHQ-9 Score PHQ-9: Total score 3 05/25/23 08:27 Depression Screening Interpretation: Negative Thrive Assessment: Date of Thrive Assessment Date Thrive assessed 09/04/22 05/25/23 08:27 Const General: alert; No acute distress Eyes Conjunctivae: conjunctivae normal Resp Auscultation: clear to auscultation bilaterally Cardio Rate: regular rate Rhythm: regular rhythm GI Inspection: Yes normal to inspection Extrem General: Yes normal to inspection and No edema Assessment and Plan Assessment & Plan (1) SVT (supraventricular tachycardia): Code(s): I47.1 - Supraventricular tachycardia Plan: Patient presently on beta que metoprolol 100 mg once a day patient is being followed up by Cardiology. Echocardiogram pending (2) CAD (coronary artery disease): Comment: July 2018 PCI LUPE RCA echo EF 60-65% grade 1 diastolic dysfunction, nuclear stress test normal February 2020 Code(s): I25.10 - Atherosclerotic heart disease of [place] coronary artery without angina pectoris Qualifiers: Coronary Disease-Associated Artery/Lesion type: [place] artery [place] vs. transplanted heart: [place] heart Associated angina: without angina Qualified Code(s): I25.10 - Atherosclerotic heart disease of [place] coronary artery without angina pectoris Plan: Control the cholesterol, weight, blood pressure continue with aspirin 81 mg once a day (3) HTN (hypertension): Code(s): I10 - Essential (primary) hypertension Qualifiers: Hypertension type: essential hypertension Qualified Code(s): I10 - Essential (primary) hypertension Plan: Continue with blood pressure medication. Decrease salt intake and exercise continue with the beta-que as well as hydrochlorothiazide 12.5 mg once a day and losartan 100 mg once a day (4) HLD (hyperlipidemia): Code(s): E78.5 - Hyperlipidemia, unspecified Qualifiers: Hyperlipidemia type: pure hypercholesterolemia Qualified Code(s): E78.00 - Pure hypercholesterolemia, unspecified Plan: Avoid fried foods, chicken skin, eggs, butter margarine, pastries and meat. Be it pork or beef they have a lot of cholesterol LDL goal of less than 70 presently on rosuvastatin 20 mg once a day and Praluent (5) Generalized anxiety disorder: Code(s): F41.1 - Generalized anxiety disorder Plan: Continue with medication as needed (6) GERD (gastroesophageal reflux disease): Code(s): K21.9 - Gastro-esophageal reflux disease without esophagitis Qualifiers: Esophagitis presence: without esophagitis Qualified Code(s): K21.9 - Gastro-esophageal reflux disease without esophagitis Plan: Avoid the foods that causes that usually spicy foods, tomato products, juices, coffee, soda and foods that your sensitive to. After eating do not lie down, allow 3-4 hours before in lie down. And keep the head of bed above 30 degrees to avoid the acid from going up. Orders: Orders Magnesium 3 Months I47.1 - Supraventricular tachycardia Complete Blood Count Auto Diff 3 Months I47.1 - Supraventricular tachycardia Comprehensive Met. Panel 3 Months I47.1 - Supraventricular tachycardia Vitamin B12 and Folate 3 Months E78.00 - Pure hypercholesterolemia, unspecified Phosphorus 3 Months E78.00 - Pure hypercholesterolemia, unspecified Free T4 (Free Thyroxine) 3 Months I47.1 - Supraventricular tachycardia Thyroid Stimulating Hormone 3 Months I47.1 - Supraventricular tachycardia Lipid Panel 3 Months E78.00 - Pure hypercholesterolemia, unspecified Medications: Refilled alprazolam 0.5 mg PO BID 30 days PRN 30 tabs 2RF Anxiety F41.1 - Generalized anxiety disorder losartan 100 mg PO DAILY 90 tabs 3RF I10 - Essential (primary) hypertension metoprolol succinate ER 100 mg PO DAILY 90 days 90 tabs 3RF I10 - Essential (primary) hypertension, I47.1 - Supraventricular tachycardia Coding Level of Care Code Est Pt Level 4 (84464) Diagnoses SVT (supraventricular tachycardia) I47.1 Coronary artery disease involving [place] coronary artery of [place] heart without angina pectoris I25.10 Coronary Disease-Associated Artery/Lesion type: [place] artery [place] vs. transplanted heart: [place] heart Associated angina: without angina Essential hypertension I10 Hypertension type: essential hypertension Pure hypercholesterolemia E78.00 Hyperlipidemia type: pure hypercholesterolemia Generalized anxiety disorder F41.1 Gastroesophageal reflux disease without esophagitis K21.9 Esophagitis presence: without esophagitis
[2023-05-25 08:45] VITALS: PULSE 52
== END 2023-05-25 08:58 | disposition home or self-care (01) ==
PROVIDERS: PCP Internal Medicine; Visit Provider Internal Medicine
DX: I47.1 Supraventricular tachycardia (principal); I25.10 Atherosclerotic heart disease of native coronary artery without angina pectoris; I10 Essential (primary) hypertension; E78.00 Pure hypercholesterolemia, unspecified; F41.1 Generalized anxiety disorder; K21.9 Gastro-esophageal reflux disease without esophagitis
CPT/HCPCS: 99214

== ENCOUNTER → 2023-08-09 06:53 | Outpatient (REF) | payer MEDICARE, OTHER, SELFPAY ==
--- NOTE | 2023-08-09 06:55 | HM_ITS ---
* Total monitoring time 3 days. * Underlying rhythm is sinus with an average rate of 59/Min. Range 38 to 79/Min. * Frequent supraventricular ectopy burden of 21%. Occasional couplets. No significant runs. * Rare ventricular ectopy with you couplets. Very brief AIVR run during sleep hours. * No significant pauses or AV blocks. * Patient markers associated with sinus rhythm, sinus bradycardia, PACs. * Chest discomfort in diary correlates with sinus rhythm/PACs. MTDD
== END ==
LOC: HO.CARD 06:53
PROVIDERS: PCP Internal Medicine; Visit Provider Nurse Practitioner Family
DX: I49.1 Atrial premature depolarization (principal); I47.10 Supraventricular tachycardia, unspecified
CPT/HCPCS: 93242

== ENCOUNTER → 2023-08-09 06:55 | Outpatient (BNV) | payer MEDICARE, OTHER, SELFPAY | PROVIDERS: PCP Internal Medicine; Visit Provider Internal Medicine | DX: I47.10 Supraventricular tachycardia, unspecified (principal) | CPT/HCPCS: 93244 ==

== ENCOUNTER 2023-08-17 06:00 | Outpatient (REF) | payer MEDICARE, OTHER, SELFPAY ==
[2023-08-17 06:12] LABS: MANUAL DIFF FLAG NO
[2023-08-17 07:14] LABS: Basophils Absolute Auto 0.1 X10*3/uL (0.0-0.2); Eosinophils Absolute Auto 0.2 X10*3/uL (0.0-0.4); Eosinophils Percent Auto 3.2 % (0-4); Hematocrit 37.2 % (37.0-47.0); Hemoglobin 12.8 g/dl (12.0-16.0); Imm Gran Abs Auto 0.03 X10*3/uL (0.00-0.03); Imm Gran Pct Auto 0.4 % (0.0-0.4); Lymphocytes Absolute Auto 2.7 X10*3/uL (1.2-4.9); Lymphocytes Percent Auto 37.6 % (20-40); Mean Corpuscular HGB Conc 34.4 g/dl (31.0-35.0); Mean Corpuscular Hemoglobin 32.7 pg (27.0-33.0); Mean Corpuscular Volume 95.1 fL (80.0-98.0); Mean Platelet Volume 11.3 fL (9.4-12.3); Monocytes Absolute Auto 0.6 X10*3/uL (0.1-1.2); Monocytes Percent Auto 8.5 % (2-11); Neutrophils Absolute Auto 3.5 x10*3/uL (2.0-8.3); Neutrophils Percent Auto 49.3 % (45-73); Platelet Count 179 X10*3/uL (160-400); Red Blood Count 3.91 X10*6/uL (4.20-5.50); White Blood Count 7.1 X10*3/uL (4.8-10.8)
[2023-08-17 07:41] LABS: Alanine Aminotransferase 12 U/L (0-31); Albumin Level 4.1 g/dL (3.5-5.0); Alkaline Phosphatase 68 U/L (39-117); Anion Gap 12 (12-20); Aspartate Amino Transferase 17 U/L (5-31); Bilirubin Total 0.7 mg/dL (0.0-1.0); Blood Urea Nitrogen 18 mg/dL (9-16); Calcium 9.5 mg/dL (8.4-10.2); Carbon Dioxide 28 mmol/L (22-29); Chloride 108 mmol/L (96-108); Cholesterol 128 mg/dL (<200); Estimated Glomerular Filt Rate 54; Glucose Random 92 mg/dL (60-115); HDL Cholesterol 53 mg/dL (>40); LDL Cholesterol Calculated 62 mg/dL (<100); Magnesium 1.9 mg/dL (1.6-2.6); Phosphorus 3.3 mg/dL (2.7-4.5); Potassium 4.2 mmol/L (3.3-5.1); Sodium 144 mmol/L (135-145); Total Protein 6.8 g/dL (6.5-8.0); Triglycerides 68 mg/dL (<150)
[2023-08-17 07:58] LABS: Free T4 (Free Thyroxine) 0.88 ng/dL (0.71-1.85); Thyroid Stimulating Hormone 3.59 uIU/mL (0.32-4.0)
[2023-08-17 08:13] LABS: Vitamin B12 619 pg/mL (200-900)
== END 2023-08-17 06:01 | disposition home or self-care (01) ==
LOC: HO.LAB 06:00
PROVIDERS: PCP Internal Medicine; Visit Provider Internal Medicine
DX: I47.10 Supraventricular tachycardia, unspecified (principal); E78.00 Pure hypercholesterolemia, unspecified
CPT/HCPCS: 36415; 80053; 80061; 82607; 82746; 83735; 84100; 84439; 84443; 85025

== ENCOUNTER 2023-08-21 09:56 | Outpatient (AMB) | payer MEDICARE, OTHER, SELFPAY ==
[2023-08-21 10:22] VITALS: BP 118/74; PULSE 58; BMI 28.7
--- NOTE | 2023-08-21 10:22 | MHC.OFFVIS ---
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: No Allergies bee pollen [bee stings] Allergy (Severe, Verified 05/25/23 08:26) Anaphylaxis lisinopril [LISINOPRIL] Adverse Reaction (Intermediate, Verified 05/25/23 08:26) COUGH Cmieqrz-CUS-IpK Reductase Inhibitor [THDCYON-BNI-HAR REDUCTASE INHIBITOR] Adverse Reaction (Intermediate, Verified 05/25/23 08:26) MUSCLE ACHES ticagrelor [Brilinta] Adverse Reaction (Intermediate, Verified 05/25/23 08:26) Shortness of Breath Medication List - Last Reconciled 08/21/23 by Shai Miles MD alirocumab (Praluent Pen) 75 mg subcut Q3W 30 days alprazolam 0.5 mg PO BID PRN 30 days aspirin (Adult Low Dose Aspirin) 81 mg PO DAILY cholecalciferol (vitamin D3) 50 mcg PO DAILY coenzyme Q10 (CoQ-10) 100 mg PO DAILY epinephrine (EpiPen 2-Jc) 0.3 mg (0.3 mL) IM Q4H PRN hydrochlorothiazide 12.5 mg PO QAM losartan 100 mg PO DAILY metoprolol succinate ER 100 mg PO DAILY 90 days multivitamin (Daily Multi-Vitamin tablet) 1 tab PO DAILY nitroglycerin 0.4 mg sublingual PER PKG DIR PRN omeprazole 20 mg PO QAM rosuvastatin 20 mg PO DAILY HPI HPI Comments History of Present Illness Details Kiera comes for follow-up. She continues to have some symptoms of palpitation although she has not very specific. She had a Holter monitor recently which showed frequent PACs with no runs of atrial fibrillation. She did have some symptoms of rapid heart rate during that time which correlated with PACs. She also had another episode where she had feeling of being anxious all day. However this was not the time when she was wearing the monitor. She denies any prolonged regular palpitations. No lightheadedness, syncope. No exertional chest pain. She denies any heart failure symptoms. Takes all her medications. [facility] Medical History (Updated 05/18/23 @ 15:52 by Destiny M Gwendolyn, [employer] WORKER-C) Cataract Postmenopausal History of COVID-19 Thoracic back pain Dyspnea on exertion Former smoker, stopped smoking in distant past Right lower quadrant abdominal pain Paroxysmal atrial fibrillation HLD (hyperlipidemia) HTN (hypertension) PVD (peripheral vascular disease) CAD (coronary artery disease) Surgical History History of lung surgery (~2022) History of esophagogastroduodenoscopy (EGD) (~2020) History of breast biopsy (~1996) History of colonoscopy (~2020) History of cardiac cath (~2019) History of cholecystectomy (~2018) Stented coronary artery (~2017) Family History Father Sudden cardiac CVD (cardiovascular disease) Mother Stroke HTN (hypertension) Myocardial infarction Social History Household Members: Spouse Housing: House Are you a primary youth care professional to a significant other at home: No Do you presently have visiting nurse or other home services: No Alcohol intake: current Alcohol intake frequency: holidays/special occasions only Alcohol type: wine Patient Tobacco Use Status: Former Tobacco user Quit Date: Tobacco use type: Cigarette Years Smoked: quit 1983 e-Cigarette/Vaping Use: Never Used Second Hand Smoke Exposure: No Current occupational status: retired Cognitive needs: No Hearing needs: No Vision needs: Yes Review of Systems Const Denies chills, Denies fatigue, Denies fever(s), Denies frequent falls, Denies weakness, Denies weight gain and Denies weight loss ENT Denies dizziness Card Denies chest pain, Denies leg edema, Denies lightheadedness, Denies palpitations, Denies dyspnea, Denies dyspnea on exertion, Denies orthopnea and Denies other (loss of consciousness) Resp Denies cough, Denies dyspnea and Denies dyspnea on exertion GI Denies hematochezia and Denies change in stool character Musc Denies abnormal gait, Denies muscle weakness, Denies numbness, Denies radiating pain into limb and Denies tingling Neuro Denies abnormal gait, Denies dizziness, Denies frequent falls, Denies numbness, Denies tingling and Denies weakness Endo Denies fatigue and Denies palpitations Physical Exam Vital Signs: Last Vital Signs Pulse 58 08/21/23 10:22 BP 118/74 08/21/23 10:22 BMI result Body Mass Index 28.7 Const General: cooperative, healthy appearing, comfortable and no acute distress Orientation/consciousness: patient oriented x3 Neck Neck: Yes normal visual inspection Resp Effort & Inspection: normal respiratory effort Auscultation: clear to auscultation bilaterally, no crackles, no rales, no rhonchi and no wheezes Cardio Jugular venous distension: no JVD Rate: regular rate Rhythm: regular rhythm Heart sounds: S1 normal heart sound present, S2 normal heart sound present, no murmurs and no rubs Neuro General: patient oriented x3 Extrem General: Yes normal to inspection, No no pedal edema and No calf tenderness Psych Appearance: grossly normal Mental Status: mental status grossly normal Speech and movement: Normal speech and movement present Assessment & Plan Assessment & Plan (1) CAD (coronary artery disease): Comment: July 2018 PCI LUPE RCA echo EF 60-65% grade 1 diastolic dysfunction, nuclear stress test normal February 2020 Code(s): I25.10 - Atherosclerotic heart disease of [place] coronary artery without angina pectoris Qualifiers: Coronary Disease-Associated Artery/Lesion type: [place] artery [place] vs. transplanted heart: [place] heart Associated angina: without angina Qualified Code(s): I25.10 - Atherosclerotic heart disease of [place] coronary artery without angina pectoris Plan: CAD with prior drug-eluting stent to RCA. Doing well. No recurrent symptoms of angina. Continue lifelong aspirin therapy. Importance of aggressive lipid modification was discussed. She is currently trying to assess role of Praluent as well as statin therapy. Advise follow-up lipid panel in 6 months time on current regimen. If LDL is well controlled around 60 mg/dL will continue the same. If LDL is rising would advised to change Praluent therapy every 2 weeks. Importance of good blood pressure control was discussed. Stress mitigation strategies were discussed. Continue participate in regular physical activity. (2) Paroxysmal atrial fibrillation: Code(s): I48.0 - Paroxysmal atrial fibrillation Plan: Paroxysmal atrial fibrillation which is currently overall suppressed. She does have frequent PACs which could cause her to have symptoms although has no clear recurrence of atrial fibrillation. Continue metoprolol therapy. Avoidance of stimulants was discussed. Stress mitigation strategies was discussed. She has had no clear recurrent atrial fibrillation. If she has recurrent atrial fibrillation require oral anticoagulation therapy in place of aspirin. (3) SVT (supraventricular tachycardia): Code(s): I47.1 - Supraventricular tachycardia Plan: SVTs have remained suppressed on metoprolol therapy. Continue to use metoprolol therapy. Vagal maneuvers were discussed. Avoidance of stimulants was discussed. Stress mitigation strategies were discussed. Will follow up in the clinic in 6 months time, sooner p.r.n.. Thank you for allowing me to partake in the care Orders: Orders CRP High Sensitivity 6 Months I25.10 - Atherosclerotic heart disease of [place] coronary artery without angina pectoris Lipid Panel 6 Months I25.10 - Atherosclerotic heart disease of [place] coronary artery without angina pectoris Medications: Changed From alirocumab (Praluent Pen) 75 mg subcut Q3W 30 days 2 mL 5RF I25.10 - Atherosclerotic heart disease of [place] coronary artery without angina pectoris To alirocumab (Praluent Pen) 75 mg subcut Q2W 2 mL 5RF 30 days I25.10 - Atherosclerotic heart disease of [place] coronary artery without angina pectoris Coding Level of Care Code Est Pt Level 4 (69941) Diagnoses Coronary artery disease involving [place] coronary artery of [place] heart without angina pectoris I25.10 Coronary Disease-Associated Artery/Lesion type: [place] artery [place] vs. transplanted heart: [place] heart Associated angina: without angina Paroxysmal atrial fibrillation I48.0 SVT (supraventricular tachycardia) I47.1
== END 2023-08-21 11:06 | disposition home or self-care (01) ==
PROVIDERS: PCP Internal Medicine; Visit Provider Internal Medicine Cardiovascular Disease
DX: I25.10 Atherosclerotic heart disease of native coronary artery without angina pectoris (principal); I48.0 Paroxysmal atrial fibrillation; I47.19 Other supraventricular tachycardia
CPT/HCPCS: 99214

== ENCOUNTER → 2023-08-21 09:56 | Outpatient (BNVA) | payer MEDICARE, OTHER, SELFPAY | PROVIDERS: PCP Internal Medicine; Visit Provider Internal Medicine Cardiovascular Disease | DX: I25.10 Atherosclerotic heart disease of native coronary artery without angina pectoris (principal); I48.0 Paroxysmal atrial fibrillation; I47.10 Supraventricular tachycardia, unspecified; Z79.82 Long term (current) use of aspirin; Z79.899 Other long term (current) drug therapy | CPT/HCPCS: 99212 ==

== ENCOUNTER 2023-09-07 08:48 | Outpatient (AMB) | payer MEDICARE, OTHER, SELFPAY ==
--- NOTE | 2023-09-07 09:14 | MHC.PC.OV ---
Vital Signs 09/07/23 09:15 Height 5 ft 7 in Weight 180 lb 6 oz BMI 28.2 BP 110/70 Blood Pressure Location Lt brachial Position Sitting Pulse 55 Pulse Source Pulse Oximeter Pulse Oximetry (%) 98 Oxygen Delivery Method Room Air Intake Visit Reasons: Annual Exam Intake Note: Patient is here today for a physical. Director Property Required: No Accompanied by: Self / Same As Patient Allergies bee pollen [bee stings] Allergy (Severe, Verified 09/07/23 09:19) Anaphylaxis lisinopril [LISINOPRIL] Adverse Reaction (Intermediate, Verified 09/07/23 09:19) COUGH Sevvxvt-BHW-EhB Reductase Inhibitor [PKRKEEB-DEF-WIF REDUCTASE INHIBITOR] Adverse Reaction (Intermediate, Verified 09/07/23 09:19) MUSCLE ACHES ticagrelor [Brilinta] Adverse Reaction (Intermediate, Verified 09/07/23 09:19) Shortness of Breath Medication List - Last Reconciled 09/07/23 by Esvin Basilio, alprazolam 0.5 mg PO BID PRN 30 days aspirin (Adult Low Dose Aspirin) 81 mg PO DAILY cholecalciferol (vitamin D3) 50 mcg PO DAILY coenzyme Q10 (CoQ-10) 100 mg PO DAILY epinephrine (EpiPen 2-Jc) 0.3 mg (0.3 mL) IM Q4H PRN evolocumab (Repatha SureClick) 140 mg subcut Q2W losartan 100 mg PO DAILY metoprolol succinate ER 100 mg PO DAILY 90 days multivitamin (Daily Multi-Vitamin tablet) 1 tab PO DAILY nitroglycerin 0.4 mg sublingual PER PKG DIR PRN omeprazole 20 mg PO QAM rosuvastatin 20 mg PO DAILY Tobacco use date assessed: 09/07/23 Fall risk assessment: No Falls in past year Last assessed Fall Risk: 09/07/23 Dental Screening Dental Screen Date: 09/07/23 Did you have a dental visit in the last 12 months?: Yes Did you have a dental problem in the last 6 months where you did not have access to dental care?: No Was dental information given to patient?: Patient has dentist HPI Annual Exam HPI Details 73-year-old overweight female with a history of hypertension hypercholesterolemia coronary artery disease GERD and SVT coming in for physical exam last seen in May 2023. Patient's colonoscopy is up-to-date April 2021 10 years bone density up-to-date also October 2022 mammogram April 2023. Recent call for diarrhea advised probiotic. Patient did see Cardiology 08/21/2023 symptomatic palpitations Holter showing frequent PACs for the cholesterol on Praluent. Atrial fibrillation currently suppressed presently on metoprolol. diarrhea 10 days no new med except HCTZ but 3 months ago immodium taken and probiotics done. repatha not started. praluent not covering anymore no nausea and PFSH Medical History (Updated 09/07/23 @ 09:40 by Esvin Basilio MD) Cataract Postmenopausal History of COVID-19 Thoracic back pain Dyspnea on exertion Former smoker, stopped smoking in distant past Right lower quadrant abdominal pain Paroxysmal atrial fibrillation HLD (hyperlipidemia) HTN (hypertension) PVD (peripheral vascular disease) CAD (coronary artery disease) Surgical History History of lung surgery (~2022) History of esophagogastroduodenoscopy (EGD) (~2020) History of breast biopsy (~1996) History of colonoscopy (~2020) History of cardiac cath (~2019) History of cholecystectomy (~2018) Stented coronary artery (~2017) Family History Father Sudden cardiac CVD (cardiovascular disease) Mother Stroke HTN (hypertension) Myocardial infarction Social History (Updated 09/07/23 @ 09:31 by Esvin Basilio MD) Household Members: Spouse Housing: House Are you a primary care aide to a significant other at home: No Do you presently have visiting nurse or other home services: No Alcohol intake: current Alcohol intake frequency: holidays/special occasions only Alcohol type: wine Comment: 2 days of the week 2 glasses Patient Tobacco Use Status: Former Tobacco user Quit Date: Tobacco use type: Cigarette Years Smoked: quit 1983 e-Cigarette/Vaping Use: Never Used Second Hand Smoke Exposure: No service: No Current occupational status: retired Cognitive needs: No Hearing needs: No Vision needs: Yes Questionnaire PHQ-9 Over the last 2 weeks, how often have you been bothered by any of the following problems? 1. Little interest or pleasure in doing things: not at all 2. Feeling down, depressed, or hopeless: not at all 3. Trouble falling or staying asleep, or sleeping too much: not at all 4. Feeling tired or having little energy: not at all 5. Poor appetite or overeating: not at all 6. Feeling bad about yourself - or that you are a failure or have let yourself or your family down: not at all 7. Trouble concentrating on things, such as reading the newspaper or watching television: not at all 8. Moving or speaking so slowly that other people could have noticed. Or the opposite - being so fidgety or restless that you have been moving around a lot more than usual: not at all 9. Thoughts that you would be better off or of hurting yourself in some way: not at all Total score: 0 Depression Screening Interpretation: Negative Depression Screening Done: Yes 01529 - PHQ-9 Billing: Yes Source: Developed by Drs. Harrison Mejia, Radha Koch, Huey Andrews and colleagues, with an educational donny from [employer]. Thrive Questionnaire Date Thrive assessed: 09/07/23 I am a: Patient What is your living situation today?: I have a steady place to live Within the past 12 months, did the food you bought not last and you didn't have the money to get more?: Never true Within the past 12 months, did you worry whether your food would run out before you got money to buy more?: Never true Do you have trouble paying for medicines?: No Do you have trouble getting transportation to medical appointments?: No Do you have trouble paying your heating and electricity bill?: No Do you have trouble taking care of your child, family member or friend?: No Do you have trouble with day-to-day activities such as bathing, preparing meals, shopping, managing finances, etc.?: No Are you currently unemployed and looking for a job?: No Are you interested in more education?: No Please select the resources that you would like help with: None Currently or been in a relationship where the following occur: no concerns reported THRIVE Score: 0 AUDIT C Alcohol Use Questionnaire (AUDIT-C) 1. How often do you have a drink containing alcohol?: Monthly or less 2. How many drinks containing alcohol do you have on a typical day when you are drinking?: 1 or 2 3. How often do you have six or more drinks on one occasion?: Never Total Score: 1 TWILA-7 AMB Questionnaire TWILA-7 Date TWILA - 7 assessed: 09/07/23 Feeling nervous, anxious, or on edge: 0 = Not at all Not being able to stop or control worryin = Not at all Worrying too much about different things: 0 = Not at all Trouble relaxin = Not at all Being so restless that it is hard to sit still: 0 = Not at all Becoming easily annoyed or irritable: 0 = Not at all Feeling afraid as if something awful might happen: 0 = Not at all Total TWILA-7 score (0-4 normal; 5-9 mild; 10-14 moderate; 15-21 severe): 0 Source: Developed by Drs. Harrison Mejia, Radha Koch, Huey Andrews and colleagues, with an educational donny from [employer]. TWILA-7 Assessment Billing TWILA-7 Assessment Tool: TWILA-7 Assessment 46510 Review of Systems Const Denies poor appetite and Denies weakness Eyes Denies no additional complaints ENT Reports Normal hearing present, Denies dizziness, Denies nasal congestion, Denies tinnitus and Denies sore throat Card Denies chest pain, Denies syncope, Denies rapid heart rate and Denies dyspnea Resp Denies cough and Denies dyspnea GI Denies change in stool character, Reports constipation, Denies diarrhea, Denies nausea and Denies vomiting Denies urinary frequency, Denies difficulty voiding and Denies dysuria Neuro Reports Normal hearing present, Denies confusion, Denies dizziness, Denies syncope and Denies weakness Psych Denies confusion Physical exam (Primary Care) Vital Signs: Last Vital Signs Pulse 55 09/07/23 09:15 BP 110/70 09/07/23 09:15 Pulse Ox 98 09/07/23 09:15 Oxygen Delivery Method Room Air 09/07/23 09:15 BMI result Body Mass Index 28.2 Tobacco/Smoking Status: Tobacco use Status Tobacco use date assessed 09/07/23 09/07/23 09:20 Patient Tobacco Use Status Former Tobacco user 09/07/23 09:15 Tobacco use type Cigarette 09/07/23 09:15 e-Cigarette/Vaping Use Never Used 09/07/23 09:15 PHQ-9: PHQ-9 Score PHQ-9: Total score 0 09/07/23 09:18 Depression Screening Interpretation: Negative Thrive Assessment: Date of Thrive Assessment Date Thrive assessed 09/07/23 09/07/23 09:18 Currently or been in a relationship where the following occur: no concerns reported Const General: No confusion Orientation/consciousness: No confusion HENMT Head: Yes normocephalic Ears: external ears normal and TM's normal bilaterally Face and sinus: Yes normal facial exam Mouth: moist mucous membranes Throat: Yes tonsils normal Eyes Conjunctivae: conjunctivae normal Pupils: Equal, round and reactive pupils present and Pupil accommodation reflex normal Direct Ophthalmoscopy: normal light reflex Neck Neck: No lymphadenopathy Thyroid: Thyroid normal Chest Chest palpation & inspection: normal inspection of the chest Resp Effort & Inspection: normal respiratory effort and no audible wheezes Auscultation: clear to auscultation bilaterally, no crackles, no wheezes and lung sounds not diminished Cardio Rate: regular rate Rhythm: regular rhythm Peripheral pulses: radial pulses present and dorsalis pedis present GI Other: ++bowel sounds no guarding no tenderness no rebound Palpation (GI): no masses Rectal Exam - Female: deferred Skin General skin exam: no rashes or lesions noted Rashes: no rashes Neuro General: No confusion Cranial nerves: Yes Equal, round and reactive pupils present and Yes Normal hearing present Cognition (Neuro): normal cognition Gait exam (Neuro): Normal gait present Motor exam (neuro): 5/5 motor strength present throughout Deep tendon reflexes (DTR's): Right brachioradialis reflex intensity grade: 2+, Left brachioradialis reflex intensity grade: 2+, Right patellar reflex intensity grade: 2+ and Left patellar reflex intensity grade: 2+ Extrem General: No edema Assessment and Plan Assessment & Plan (1) Annual physical exam: Code(s): Z00.00 - Encounter for general adult medical examination without abnormal findings (2) HLD (hyperlipidemia): Code(s): E78.5 - Hyperlipidemia, unspecified Qualifiers: Hyperlipidemia type: pure hypercholesterolemia Qualified Code(s): E78.00 - Pure hypercholesterolemia, unspecified Plan: Avoid fried foods, chicken skin, eggs, butter margarine, pastries and meat. Be it pork or beef they have a lot of cholesterol LDL goal of less than 70 and triglyceride of less than 150. Patient is on rosuvastatin 20 mg once a day and Repatha. (3) HTN (hypertension): Code(s): I10 - Essential (primary) hypertension Qualifiers: Hypertension type: essential hypertension Qualified Code(s): I10 - Essential (primary) hypertension Plan: Continue with blood pressure medication. Decrease salt intake and exercise on losartan 100 mg once a day and metoprolol 100 mg once a day (4) CAD (coronary artery disease): Comment: July 2018 PCI LUPE RCA echo EF 60-65% grade 1 diastolic dysfunction, nuclear stress test normal February 2020 Code(s): I25.10 - Atherosclerotic heart disease of [place] coronary artery without angina pectoris Qualifiers: Coronary Disease-Associated Artery/Lesion type: [place] artery [place] vs. transplanted heart: [place] heart Associated angina: without angina Qualified Code(s): I25.10 - Atherosclerotic heart disease of [place] coronary artery without angina pectoris Plan: Control the cholesterol, weight, blood pressure, diabetes continue with aspirin 81 mg once a (5) GERD (gastroesophageal reflux disease): Code(s): K21.9 - Gastro-esophageal reflux disease without esophagitis Qualifiers: Esophagitis presence: without esophagitis Qualified Code(s): K21.9 - Gastro-esophageal reflux disease without esophagitis Plan: Avoid the foods that causes that usually spicy foods, tomato products, juices, coffee, soda and foods that your sensitive to. After eating do not lie down, allow 3-4 hours before in lie down. And keep the head of bed above 30 degrees to avoid the acid from going up. (6) Paroxysmal atrial fibrillation: Code(s): I48.0 - Paroxysmal atrial fibrillation Plan: No evidence of recurrence patient is being monitored by Cardiology (7) SVT (supraventricular tachycardia): Code(s): I47.1 - Supraventricular tachycardia Plan: Metoprolol keeping it is suppressed. (8) Gastroenteritis: Code(s): K52.9 - Noninfective gastroenteritis and colitis, unspecified Plan: Keeping well hydrated stool test requested referral to Gastroenterology done. Brat diet Orders: Orders Ova and Parasite Today K52.9 - Noninfective gastroenteritis and colitis, unspecified CDiff Gene PCR Today K52.9 - Noninfective gastroenteritis and colitis, unspecified Leukocytes Stool Qualitative Today K52.9 - Noninfective gastroenteritis and colitis, unspecified Referrals Gastroenterology Referral K52.9 - Noninfective gastroenteritis and colitis, unspecified Medications: New diphenoxylate-atropine 2.5-0.025 mg (Lomotil) 1 tab PO BID PRN 20 tabs 0RF diarrhea K52.9 - Noninfective gastroenteritis and colitis, unspecified Coding Level of Care Code Est Pt Prev Care >65y(56282) Diagnoses Annual physical exam Z00.00 Pure hypercholesterolemia E78.00 Hyperlipidemia type: pure hypercholesterolemia Essential hypertension I10 Hypertension type: essential hypertension Coronary artery disease involving [place] coronary artery of [place] heart without angina pectoris I25.10 Coronary Disease-Associated Artery/Lesion type: [place] artery [place] vs. transplanted heart: [place] heart Associated angina: without angina Gastroesophageal reflux disease without esophagitis K21.9 Esophagitis presence: without esophagitis Paroxysmal atrial fibrillation I48.0 SVT (supraventricular tachycardia) I47.1 Gastroenteritis K52.9 Additional Codes TWILA-7 Assessment Billing - TWILA-7 Assessment Tool: TWILA-7 Assessment [id number] ([id number])
[2023-09-07 09:15] VITALS: BP 110/70; PULSE 55; O2SAT 98; BMI 28.2
== END 2023-09-07 09:48 | disposition home or self-care (01) ==
PROVIDERS: Visit Provider Internal Medicine
DX: Z00.00 Encounter for general adult medical examination without abnormal findings (principal); E78.00 Pure hypercholesterolemia, unspecified; I48.0 Paroxysmal atrial fibrillation; I47.19 Other supraventricular tachycardia; I10 Essential (primary) hypertension; I25.10 Atherosclerotic heart disease of native coronary artery without angina pectoris; K21.9 Gastro-esophageal reflux disease without esophagitis; K52.9 Noninfective gastroenteritis and colitis, unspecified
CPT/HCPCS: 99397

== ENCOUNTER 2023-09-11 09:12 | Outpatient (REF) | payer MEDICARE, OTHER, SELFPAY ==
[2023-09-11 11:35] LABS: Leukocytes Stool Qualitative NEGATIVE (NEGATIVE)
== END 2023-09-11 09:13 | disposition home or self-care (01) ==
LOC: HO.LNP 09:12
PROVIDERS: Visit Provider Internal Medicine
DX: K52.9 Noninfective gastroenteritis and colitis, unspecified (principal)
CPT/HCPCS: 87177; 87209; 87493; 89055

== ENCOUNTER 2023-09-12 08:42 | Outpatient (REF) | payer MEDICARE, OTHER, SELFPAY | END 2023-09-12 08:43 | disposition home or self-care (01) | LOC: HO.LNP 08:42 | PROVIDERS: Visit Provider Internal Medicine | DX: K52.9 Noninfective gastroenteritis and colitis, unspecified (principal) | CPT/HCPCS: 87493 ==

== ENCOUNTER 2023-11-06 08:13 | Outpatient (AMB) | payer MEDICARE, OTHER, SELFPAY ==
[2023-11-06 08:53] VITALS: BP 130/80; PULSE 55; TEMP 36.1; O2SAT 96; BMI 29.0
--- NOTE | 2023-11-06 08:53 | AM.OFFWIN_ITS ---
Intake Vital Signs 11/06/23 08:53 Height 5 ft 7 in Weight 185 lb BMI 29.0 BP 130/80 Blood Pressure Location Lt brachial Position Sitting Pulse 55 Pulse Source Pulse Oximeter Temp 97.0 F Temp Source Temporal Artery Scan Pulse Oximetry (%) 96 Oxygen Delivery Method Room Air Intake Visit Reasons: EP Reaction to med ~ rash Intake Note: pt is here today for reaction to med started 10 days ago Patient Tobacco Use Status: Former Tobacco user Quit Date: Allergies bee pollen [bee stings] Allergy (Severe, Verified 11/06/23 09:06) Anaphylaxis lisinopril [LISINOPRIL] Adverse Reaction (Intermediate, Verified 11/06/23 09:06) COUGH Vnxgmsf-AYG-DiY Reductase Inhibitor [LUWOBOT-CBQ-JMR REDUCTASE INHIBITOR] Adverse Reaction (Intermediate, Verified 11/06/23 09:06) MUSCLE ACHES ticagrelor [Brilinta] Adverse Reaction (Intermediate, Verified 11/06/23 09:06) Shortness of Breath Medication List - Last Reconciled 11/06/23 by Chacho Giron MD alprazolam 0.5 mg PO BID PRN 30 days aspirin (Adult Low Dose Aspirin) 81 mg PO DAILY cholecalciferol (vitamin D3) 50 mcg PO DAILY coenzyme Q10 (CoQ-10) 100 mg PO DAILY epinephrine (EpiPen 2-Jc) 0.3 mg (0.3 mL) IM Q4H PRN evolocumab (Repatha SureClick) 140 mg subcut Q2W losartan 100 mg PO DAILY metoprolol succinate ER 100 mg PO DAILY 90 days multivitamin (Daily Multi-Vitamin tablet) 1 tab PO DAILY nitroglycerin 0.4 mg sublingual PER PKG DIR PRN omeprazole 20 mg PO QAM rosuvastatin 20 mg PO DAILY Do you need a note to return to daycare/school/sports/work: No HPI EP Reaction to med ~ rash HPI Details 73-year-old female presents to the [facility] for a sick visit. Patient is reporting a rash in the vaginal area for the past 4 weeks. Very itchy. She reports no vaginal discharge. No fevers or chills. Symptoms started after she had a bout of diarrhea in the middle of August. She had blood work done routinely for an annual exam a few weeks ago which was negative. [facility] Medical History (Updated 09/07/23 @ 09:40 by Esvin Basilio MD) Cataract Postmenopausal History of COVID-19 Thoracic back pain Dyspnea on exertion Former smoker, stopped smoking in distant past Right lower quadrant abdominal pain Paroxysmal atrial fibrillation HLD (hyperlipidemia) HTN (hypertension) PVD (peripheral vascular disease) CAD (coronary artery disease) Surgical History History of lung surgery (~2022) History of esophagogastroduodenoscopy (EGD) (~2020) History of breast biopsy (~1996) History of colonoscopy (~2020) History of cardiac cath (~2019) History of cholecystectomy (~2018) Stented coronary artery (~2017) Family History Father Sudden cardiac CVD (cardiovascular disease) Mother Stroke HTN (hypertension) Myocardial infarction Social History (Updated 09/07/23 @ 09:31 by Esvin Basilio MD) Household Members: Spouse Housing: House Are you a primary manager primary care to a significant other at home: No Do you presently have visiting nurse or other home services: No Alcohol intake: current Alcohol intake frequency: holidays/special occasions only Alcohol type: wine Comment: 2 days of the week 2 glasses Patient Tobacco Use Status: Former Tobacco user Quit Date: Tobacco use type: Cigarette Years Smoked: quit 1983 e-Cigarette/Vaping Use: Never Used Second Hand Smoke Exposure: No service: No Current occupational status: retired Cognitive needs: No Hearing needs: No Vision needs: Yes Physical Exam Vital Signs: Last Vital Signs Temp 97.0 F 11/06/23 08:53 Pulse 55 11/06/23 08:53 BP 130/80 11/06/23 08:53 Pulse Ox 96 11/06/23 08:53 Oxygen Delivery Method Room Air 11/06/23 08:53 BMI result Body Mass Index 29.0 Other: Genital exam done with a female medical grade shoemaker in the room. No visible rash over the labia majora or in the perianal area. Few scratch [place] visible. Assessment & Plan Assessment & Plan (1) Irritant dermatitis: Code(s): L24.9 - Irritant contact dermatitis, unspecified cause Plan: Hydrocortisone cream to be applied. Use it twice a day. If symptoms not better to follow-up here. Coding Level of Care Code Est Pt Level 3 (15917) Diagnoses Irritant dermatitis L24.9
== END 2023-11-06 09:41 | disposition home or self-care (01) ==
PROVIDERS: PCP Internal Medicine; Visit Provider Internal Medicine
DX: L24.9 Irritant contact dermatitis, unspecified cause (principal)
CPT/HCPCS: 99213

== ENCOUNTER 2023-12-21 08:05 | Outpatient (AMB) | payer MEDICARE, OTHER, SELFPAY ==
--- NOTE | 2023-12-21 08:08 | AM.OFFWIN_ITS ---
Intake Vital Signs 12/21/23 08:09 Height 5 ft 7 in Weight 181 lb BMI 28.3 BP 122/80 Blood Pressure Location Rt brachial Position Sitting Pulse 86 Pulse Source Pulse Oximeter Temp 97.6 F Temp Source Temporal Artery Scan Pulse Oximetry (%) 94 Oxygen Delivery Method Room Air Intake Visit Reasons: EST/sinus pressure(lobby masked) Intake Note: pt is here for sinus pressure for 2 days Patient Tobacco Use Status: Former Tobacco user Quit Date: Allergies bee pollen [bee stings] Allergy (Severe, Verified 12/21/23 08:12) Anaphylaxis lisinopril [LISINOPRIL] Adverse Reaction (Intermediate, Verified 12/21/23 08:12) COUGH Rleoklh-RZP-SpB Reductase Inhibitor [QKHRAGX-KCA-RFO REDUCTASE INHIBITOR] Adverse Reaction (Intermediate, Verified 12/21/23 08:12) MUSCLE ACHES ticagrelor [Brilinta] Adverse Reaction (Intermediate, Verified 12/21/23 08:12) Shortness of Breath Do you need a note to return to daycare/school/sports/work: No HPI HPI Comments History of Present Illness Details 73 y/o female patient who presents to in [place] in clinic with c/o sinus pressure x 2 days. H/o Allergies, and currently taking Cetirizine and Flonase. [facility] Medical History (Updated 09/07/23 @ 09:40 by Esvin Basilio MD) Cataract Postmenopausal History of COVID-19 Thoracic back pain Dyspnea on exertion Former smoker, stopped smoking in distant past Right lower quadrant abdominal pain Paroxysmal atrial fibrillation HLD (hyperlipidemia) HTN (hypertension) PVD (peripheral vascular disease) CAD (coronary artery disease) Surgical History History of lung surgery (~2022) History of esophagogastroduodenoscopy (EGD) (~2020) History of breast biopsy (~1996) History of colonoscopy (~2020) History of cardiac cath (~2019) History of cholecystectomy (~2018) Stented coronary artery (~2017) Family History Father Sudden cardiac CVD (cardiovascular disease) Mother Stroke HTN (hypertension) Myocardial infarction Social History (Updated 09/07/23 @ 09:31 by Esvin Basilio MD) Household Members: Spouse Housing: House Are you a primary family day carer to a significant other at home: No Do you presently have visiting nurse or other home services: No Alcohol intake: current Alcohol intake frequency: holidays/special occasions only Alcohol type: wine Comment: 2 days of the week 2 glasses Patient Tobacco Use Status: Former Tobacco user Quit Date: Tobacco use type: Cigarette Years Smoked: quit 1983 e-Cigarette/Vaping Use: Never Used Second Hand Smoke Exposure: No service: No Current occupational status: retired Cognitive needs: No Hearing needs: No Vision needs: Yes Review of Systems Const All systems reviewed & are unremarkable except as noted in HPI and below Physical Exam Vital Signs: Last Vital Signs Temp 97.6 F 12/21/23 08:09 Pulse 86 12/21/23 08:09 BP 122/80 12/21/23 08:09 Pulse Ox 94 12/21/23 08:09 Oxygen Delivery Method Room Air 12/21/23 08:09 BMI result Body Mass Index 28.3 Const General: comfortable and no acute distress Orientation/consciousness: patient oriented x3 HEENT Head: Yes normocephalic Ears: external ears normal and TM abnormal with fluid behind the TM bilateral General nose exam: Normal external nose present and Abnormal mucous membranes and turbinates present boggy and erythematous Face and sinus: Yes sinuses nontender Mouth: moist mucous membranes Throat: Yes postnasal drainage Neuro General: patient oriented x3 Assessment & Plan Assessment & Plan (1) Allergic rhinitis: Code(s): J30.9 - Allergic rhinitis, unspecified Qualifiers: Allergic rhinitis trigger: pollen Allergic rhinitis seasonality: seasonal Qualified Code(s): J30.1 - Allergic rhinitis due to pollen Plan: - Double the cetirizine dose to BID for the next 7 days. - Added Sudafed - F/U with PCP Medications: New phenylephrine-acetaminophen 5-325 mg (Sudafed PE Pressure-Pain) 1 tab PO Q4-6H PRN 30 tabs 0RF cold symptoms J30.1 - Allergic rhinitis due to pollen Coding Level of Care Code Est Pt Level 3 (90974) Diagnoses Seasonal allergic rhinitis due to pollen J30.1 Allergic rhinitis trigger: pollen Allergic rhinitis seasonality: seasonal Time Spent (min) 15
[2023-12-21 08:09] VITALS: BP 122/80; PULSE 86; TEMP 36.4; O2SAT 94; BMI 28.3
== END 2023-12-21 08:46 | disposition home or self-care (01) ==
PROVIDERS: PCP Internal Medicine; Visit Provider Nurse Practitioner Family
DX: J30.1 Allergic rhinitis due to pollen (principal)
CPT/HCPCS: 99213

== ENCOUNTER 2024-01-08 07:21 | Outpatient (AMB) | payer MEDICARE, OTHER, SELFPAY ==
--- NOTE | 2024-01-08 07:37 | MHC.OFFVIS ---
Vital Signs 01/08/24 07:41 Height 5 ft 7 in Weight 177 lb 7 oz BMI 27.8 BP 112/53 L Blood Pressure Location Lt brachial Position Sitting Intake Visit Reasons: Gastroenteritis Intake Note: Patient follow up for Gastroenteritis Patient said probiotic help her with burping/gassy, denies any GI issues. 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 [employer] Required: No Accompanied by: Self / Same As Patient Allergies bee pollen [bee stings] Allergy (Severe, Verified 01/08/24 07:37) Anaphylaxis lisinopril [LISINOPRIL] Adverse Reaction (Intermediate, Verified 01/08/24 07:37) COUGH Brwbvqc-JXD-PbW Reductase Inhibitor [XNSAKAB-HLH-TKW REDUCTASE INHIBITOR] Adverse Reaction (Intermediate, Verified 01/08/24 07:37) MUSCLE ACHES ticagrelor [Brilinta] Adverse Reaction (Intermediate, Verified 01/08/24 07:37) Shortness of Breath Medication List - Last Reconciled 01/08/24 by Sanna Logan PA-C alprazolam 0.5 mg PO BID PRN 30 days aspirin (Adult Low Dose Aspirin) 81 mg PO DAILY cholecalciferol (vitamin D3) 50 mcg PO DAILY coenzyme Q10 (CoQ-10) 100 mg PO DAILY epinephrine (EpiPen 2-Jc) 0.3 mg (0.3 mL) IM Q4H PRN evolocumab (Repatha SureClick) 140 mg subcut Q2W hydrochlorothiazide 12.5 mg PO QAM hydrocortisone 2.5% 1 appl topical BID PRN losartan 100 mg PO DAILY metoprolol succinate ER 100 mg PO DAILY 90 days multivitamin (Daily Multi-Vitamin tablet) 1 tab PO DAILY nitroglycerin 0.4 mg sublingual PER PKG DIR PRN omeprazole 20 mg PO QAM phenylephrine-acetaminophen 5-325 mg (Sudafed PE Pressure-Pain) 1 tab PO Q4-6H PRN rosuvastatin 20 mg PO DAILY HPI Comments Details: A 73y/o female was having gas - she began probiot probiotic makes the biggest difference -she as well as Takes anti-gas OTC with very good response She feels well she has no complaints general or GI today Omeprazole daily with very good response Appetite is good ,bowels are normal No nausea, vomiting, hematemesis, hematochezia fever chills Reviewed EGD colonoscopy 2020 Dr. Carrasco [facility] Medical History (Updated 01/08/24 @ 08:14 by Sanna Logan PA-C) Cataract Postmenopausal History of COVID-19 Thoracic back pain Dyspnea on exertion Former smoker, stopped smoking in distant past Right lower quadrant abdominal pain Paroxysmal atrial fibrillation HLD (hyperlipidemia) HTN (hypertension) PVD (peripheral vascular disease) CAD (coronary artery disease) Surgical History History of lung surgery (~2022) History of esophagogastroduodenoscopy (EGD) (~2020) History of breast biopsy (~1996) History of colonoscopy (~2020) History of cardiac cath (~2019) History of cholecystectomy (~2018) Stented coronary artery (~2017) Family History Father Sudden cardiac CVD (cardiovascular disease) Mother Stroke HTN (hypertension) Myocardial infarction Social History Household Members: Spouse Housing: House Are you a primary childcare administrator to a significant other at home: No Do you presently have visiting nurse or other home services: No Alcohol intake: current Alcohol intake frequency: holidays/special occasions only Alcohol type: wine Comment: 2 days of the week 2 glasses Patient Tobacco Use Status: Former Tobacco user Tobacco use type: Cigarette Years Smoked: quit 1983 e-Cigarette/Vaping Use: Never Used Second Hand Smoke Exposure: No service: No Current occupational status: retired Cognitive needs: No Hearing needs: No Vision needs: Yes Review of Systems Const All systems reviewed & are unremarkable except as noted in HPI and below Physical Exam Vital Signs: Last Vital Signs BP 112/53 L 01/08/24 07:41 BMI result Body Mass Index 27.8 Const General: cooperative, healthy appearing, comfortable and no acute distress Orientation/consciousness: patient oriented x3 Limitations: no limitations Eyes Sclerae: sclerae normal Resp Effort & Inspection: normal respiratory effort and able to speak in complete sentences Auscultation: clear to auscultation bilaterally, no rales, no rhonchi and no wheezes Cardio Rate: regular rate Rhythm: regular rhythm Heart sounds: S1 normal heart sound present and S2 normal heart sound present Skin General skin exam: no rashes or lesions noted Neuro General: patient oriented x3 Extrem General: Yes full ROM Psych Appearance: grossly normal and well kempt Mental Status: mental status grossly normal Speech and movement: Normal speech and movement present Affect: normal affect Attitude: cooperative Thought process: Normal thought process present Thought content: Normal thought content present Insight: Good insight present (Psych) Judgement: Good judgement present (Psych) Results Reviewed Results Reviewed: rocedure Difficulty:?: Without difficulty Findings: Terminal Ileum: Not evaluated Cecum:? Normal Ascending Colon:??Normal Transverse Colon:??Normal Descending Colon:? Moderate diverticulosis Sigmoid Colon:??Moderate diverticulosis Rectum:??Normal Ano-rectum:??Moderate internal hemorrhoids and perianal skin tags Colon preparation:? Good? Impression and Post Procedure Diagnosis: Endoscopy Findings: ESOPHAGUS: No esophagitis or Mix's STOMACH: Gastritis and multiple gastric polyps DUODENUM: Normal - biopsied to check for celiac sprue Colonoscopy Findings: No polyps were detected Moderate diverticulosis seen in the left colon Moderate hemorrhoids on retroflexed exam. Plan: Await pathology results Patient has an appointment on 05/05/21 in the GI Clinic with TORO Cueva . Repeat Colonoscopy in 10 years. Above findings were reviewed with the patient and GERD, Gastric Polyps and diverticulosis handouts were given in the discharge area Surgeon:?Merari Carrasco MD Anesthesia:?MAC (Braxton Mccabe CRNA) Was an Preschool Assistant Director used for this Procedure?:?No Preschool Assistant Director:?Whitney Rowland Estimated blood loss (mL):?0 Pathology:?other ( A. small bowel biopsy, R/O Celiac? B. gastric antrum, R/O H. pylori? C. gastric polyps) Condition:?stable Disposition:?PACU tao: Kiera Lopez Age/Sex: 71/F Attending: Merari Carrasco MD : 1950 Submitted by: Merari Carrasco MD Copies to: Esvin Basilio MD MR #: [id number] Status: [facility] Collected: 04/22/21 Location: [facility] Received: 04/22/21 Diagnosis A. Small bowel, biopsy: Small intestinal mucosa within normal limits; negative for celiac disease. B. Stomach, antrum, biopsy: Antral- type mucosa with mild chronic inactive inflammation; no Helicobacter organisms seen. C. Stomach, polyps: Fundic gland polyps with background mild chronic inactive inflammation; no Helicobacter organisms seen. Clinical History Pre-Op Dx: Colon cancer screening, GERD Post-Op Dx: GERD, gastritis, gastric polyps, diverticulosis, hemorrhoids, r/o celiac, r/o H. pylori Microscopic Description A-C. Microscopic sections reviewed. Immunostain for H. pylori is non-reactive (B, C). Material Received A. Small bowel biopsy, r/o celiac B. Gastric antrum, r/o H. pylori C. Gastric polyps Gross Description Assessment & Plan Assessment & Plan (1) GERD (gastroesophageal reflux disease): Comment: Very pleasant, Well-controlled GERD-dietary modifications lifestyle with very good response Code(s): K21.9 - Gastro-esophageal reflux disease without esophagitis Category: Medical Qualifiers: Esophagitis presence: without esophagitis Qualified Code(s): K21.9 - Gastro-esophageal reflux disease without esophagitis Plan: Continue omeprazole Continue to avoid culprit Plan Follow-up p.r.n. Patient Instructions: She will continue plan of care Probiotic Dietary modifications avoidance of culprits Omeprazole 20 mg Opportunity for questions answered to her satisfaction Encouraged to call questions or concerns Coding Level of Care Code Est Pt Level 3 (81344) Diagnoses Gastroesophageal reflux disease without esophagitis K21.9 Esophagitis presence: without esophagitis Time Spent (min) 20
[2024-01-08 07:41] VITALS: BP 112/53; BMI 27.8
== END 2024-01-08 08:38 | disposition home or self-care (01) ==
PROVIDERS: PCP Internal Medicine; Visit Provider Physician Assistant
DX: K21.9 Gastro-esophageal reflux disease without esophagitis (principal)
CPT/HCPCS: 99213

== ENCOUNTER → 2024-01-08 07:21 | Outpatient (BNVA) | payer MEDICARE, OTHER, SELFPAY | PROVIDERS: PCP Internal Medicine; Visit Provider Physician Assistant | DX: K21.9 Gastro-esophageal reflux disease without esophagitis (principal); Z79.899 Other long term (current) drug therapy | CPT/HCPCS: 99212 ==

== ENCOUNTER 2024-02-21 06:03 | Outpatient (REF) | payer MEDICARE, OTHER, SELFPAY ==
[2024-02-21 07:51] LABS: Cholesterol 114 mg/dL (<200); HDL Cholesterol 66 mg/dL (>40); LDL Cholesterol Calculated 37 mg/dL (<100); Triglycerides 55 mg/dL (<150)
[2024-02-22 23:02] LABS: CRP High Sensitivity 0.5 mg/L
== END 2024-02-21 06:04 | disposition home or self-care (01) ==
LOC: HO.LAB 06:03
PROVIDERS: PCP Internal Medicine; Visit Provider Internal Medicine Cardiovascular Disease
DX: I25.10 Atherosclerotic heart disease of native coronary artery without angina pectoris (principal)
CPT/HCPCS: 36415; 80061; 86141

== ENCOUNTER 2024-02-28 08:31 | Outpatient (AMB) | payer MEDICARE, OTHER, SELFPAY ==
[2024-02-28 08:34] VITALS: BP 126/62; PULSE 60; BMI 27.8
--- NOTE | 2024-02-28 08:34 | MHC.OFFVIS ---
Vital Signs 02/28/24 08:34 Height 5 ft 7 in Weight 177 lb 11.081 oz BMI 27.8 BP 126/62 Blood Pressure Location Lt brachial Position Sitting Pulse 60 Pulse Source Pulse Oximeter Intake Visit Reasons: 6 mth s/p lipids Primary Health Care Nurse Required: No Accompanied by: Self / Same As Patient Allergies bee pollen [bee stings] Allergy (Severe, Verified 01/08/24 07:37) Anaphylaxis lisinopril [LISINOPRIL] Adverse Reaction (Intermediate, Verified 01/08/24 07:37) COUGH Tizawfs-BND-XnC Reductase Inhibitor [CUBMDRQ-UCT-RHR REDUCTASE INHIBITOR] Adverse Reaction (Intermediate, Verified 01/08/24 07:37) MUSCLE ACHES ticagrelor [Brilinta] Adverse Reaction (Intermediate, Verified 01/08/24 07:37) Shortness of Breath Medication List - Last Reconciled 02/28/24 by Shai Miles MD alprazolam 0.5 mg PO BID PRN 30 days aspirin (Adult Low Dose Aspirin) 81 mg PO DAILY cholecalciferol (vitamin D3) 50 mcg PO DAILY coenzyme Q10 (CoQ-10) 100 mg PO DAILY epinephrine (EpiPen 2-Jc) 0.3 mg (0.3 mL) IM Q4H PRN evolocumab (Repatha SureClick) 140 mg subcut Q2W hydrochlorothiazide 12.5 mg PO QAM losartan 100 mg PO DAILY metoprolol succinate ER 100 mg PO DAILY 90 days multivitamin (Daily Multi-Vitamin tablet) 1 tab PO DAILY nitroglycerin 0.4 mg sublingual PER PKG DIR PRN omeprazole 20 mg PO QAM rosuvastatin 20 mg PO DAILY HPI Comments Details: Kiera comes for follow-up. She denies any significant symptoms at this point time she had couple of days ago she had rapid heart rate that lasted for couple of hours. She was not able to record any irregularity to it. [place] fast heart rate thought she was anxious coming to the visit. A blood pressures been generally well controlled. She denies any exertional chest pain. Does have exertional shortness of breath working in the heart humid weather. Denies any orthopnea, PND, leg edema. No lightheadedness, syncope. Taking all her medications. Last LDL is well optimized at 37. CRP is improved to 0.5. [facility] Medical History Cataract Postmenopausal History of COVID-19 Thoracic back pain Dyspnea on exertion Former smoker, stopped smoking in distant past Right lower quadrant abdominal pain Paroxysmal atrial fibrillation HLD (hyperlipidemia) HTN (hypertension) PVD (peripheral vascular disease) CAD (coronary artery disease) Surgical History History of lung surgery (~2022) History of esophagogastroduodenoscopy (EGD) (~2020) History of breast biopsy (~1996) History of colonoscopy (~2020) History of cardiac cath (~2019) History of cholecystectomy (~2018) Stented coronary artery (~2017) Family History Father Sudden cardiac CVD (cardiovascular disease) Mother Stroke HTN (hypertension) Myocardial infarction Social History Household Members: Spouse Housing: House Are you a primary senior care assistant to a significant other at home: No Do you presently have visiting nurse or other home services: No Alcohol intake: current Alcohol intake frequency: holidays/special occasions only Alcohol type: wine Comment: 2 days of the week 2 glasses Patient Tobacco Use Status: Former Tobacco user Tobacco use type: Cigarette Years Smoked: quit 1983 e-Cigarette/Vaping Use: Never Used Second Hand Smoke Exposure: No service: No Current occupational status: retired Cognitive needs: No Hearing needs: No Vision needs: Yes Review of Systems Const Denies chills, Denies fatigue, Denies fever(s), Denies frequent falls, Denies weakness, Denies weight gain and Denies weight loss ENT Denies dizziness Card Denies chest pain, Denies leg edema, Denies lightheadedness, Denies palpitations, Denies dyspnea and Denies dyspnea on exertion Resp Denies cough, Denies dyspnea and Denies dyspnea on exertion GI Denies hematochezia Musc Denies abnormal gait, Denies muscle weakness, Denies numbness, Denies radiating pain into limb and Denies tingling Neuro Denies abnormal gait, Denies dizziness, Denies frequent falls, Denies numbness, Denies tingling and Denies weakness Endo Denies fatigue and Denies palpitations Physical Exam Vital Signs: Last Vital Signs Pulse 60 02/28/24 08:34 BP 126/62 02/28/24 08:34 BMI result Body Mass Index 27.8 Const General: cooperative, healthy appearing, comfortable and no acute distress Orientation/consciousness: patient oriented x3 Neck Neck: Yes normal visual inspection Resp Effort & Inspection: normal respiratory effort Auscultation: clear to auscultation bilaterally, no crackles, no rales, no rhonchi and no wheezes Cardio Jugular venous distension: no JVD Rate: regular rate Rhythm: regular rhythm Heart sounds: S1 normal heart sound present, S2 normal heart sound present, no murmurs and no rubs Neuro General: patient oriented x3 Extrem General: Yes normal to inspection, No no pedal edema and No calf tenderness Psych Appearance: grossly normal Mental Status: mental status grossly normal Speech and movement: Normal speech and movement present Assessment & Plan Assessment & Plan (1) CAD (coronary artery disease): Comment: July 2018 PCI LUPE RCA echo EF 60-65% grade 1 diastolic dysfunction, nuclear stress test normal February 2020 Code(s): I25.10 - Atherosclerotic heart disease of [place] coronary artery without angina pectoris Category: Medical Qualifiers: Coronary Disease-Associated Artery/Lesion type: [place] artery [place] vs. transplanted heart: [place] heart Associated angina: without angina Qualified Code(s): I25.10 - Atherosclerotic heart disease of [place] coronary artery without angina pectoris Plan: CAD with prior drug-eluting stent to RCA with no recurrent symptoms suggestive angina. She does have exertional shortness of breath work in the hot humid weather most likely due to underlying possible pulmonary disease and diastolic dysfunction. No signs or symptoms of heart failure. No anginal sounding chest discomfort. No further workup is indicated. LDL is extremely well optimized on current therapy. Continue the same. She is taking Repatha every 3 weeks which is working well for her. No side effects. Continue aggressive blood pressure control, see below. (2) SVT (supraventricular tachycardia): Code(s): I47.1 - Supraventricular tachycardia Category: Medical Plan: SVT with recent symptoms of palpitation under stressful situation. This has not recurred otherwise and has remained stable. Possibility of atrial fibrillation also exist. She continues to have recurrent palpitations advised to seek my consult and may need prolonged monitoring such as event monitor. Continue metoprolol therapy. Avoidance of stimulants was discussed. Stress mitigation strategies were discussed. (3) HTN (hypertension): Code(s): I10 - Essential (primary) hypertension Category: Medical Qualifiers: Hypertension type: essential hypertension Qualified Code(s): I10 - Essential (primary) hypertension Plan: Hypertension which is currently well optimized. Continue current therapy. Currently on losartan, hydrochlorothiazide metoprolol therapy. Importance of good blood pressure control was discussed. Goal blood pressure less than 130/84. Low-salt diet was discussed advised to maintain activity level as tolerated. Will follow clinic in 6 months time, sooner p.r.n.. Thank you for allowing me to partake in her care Coding Level of Care Code Est Pt Level 4 (53526) Diagnoses Coronary artery disease involving [place] coronary artery of [place] heart without angina pectoris I25.10 Coronary Disease-Associated Artery/Lesion type: [place] artery [place] vs. transplanted heart: [place] heart Associated angina: without angina SVT (supraventricular tachycardia) I47.1 Essential hypertension I10 Hypertension type: essential hypertension
== END 2024-02-28 09:18 | disposition home or self-care (01) ==
PROVIDERS: PCP Internal Medicine; Visit Provider Internal Medicine Cardiovascular Disease
DX: I25.10 Atherosclerotic heart disease of native coronary artery without angina pectoris (principal); I47.10 Supraventricular tachycardia, unspecified; I10 Essential (primary) hypertension
CPT/HCPCS: 99214

== ENCOUNTER → 2024-02-28 08:31 | Outpatient (BNVA) | payer MEDICARE, OTHER, SELFPAY | PROVIDERS: PCP Internal Medicine; Visit Provider Internal Medicine Cardiovascular Disease | DX: I25.10 Atherosclerotic heart disease of native coronary artery without angina pectoris (principal); I10 Essential (primary) hypertension; I47.10 Supraventricular tachycardia, unspecified | CPT/HCPCS: 99212 ==

== ENCOUNTER 2024-06-05 07:57 | Outpatient (AMB) | payer MEDICARE, OTHER, SELFPAY ==
[2024-06-05 08:05] VITALS: BP 138/60; PULSE 58; O2SAT 96; BMI 28.3
--- NOTE | 2024-06-05 08:05 | A.OFFPC_ITS ---
Vital Signs 06/05/24 08:05 Height 5 ft 7 in Weight 181 lb BMI 28.3 BP 138/60 Blood Pressure Location Lt brachial Position Sitting Pulse 58 Pulse Source Pulse Oximeter Pulse Oximetry (%) 96 Oxygen Delivery Method Room Air Intake Visit Reasons: cough for weeks Intake Note: pt c/o cough and phlegm [id number] with no relief Allergies bee pollen [bee stings] Allergy (Severe, Verified 06/05/24 08:16) Anaphylaxis lisinopril [LISINOPRIL] Adverse Reaction (Intermediate, Verified 06/05/24 08:16) COUGH Ydypurs-SCF-YvA Reductase Inhibitor [WSADEVP-TQK-ODO REDUCTASE INHIBITOR] Adverse Reaction (Intermediate, Verified 06/05/24 08:16) MUSCLE ACHES ticagrelor [Brilinta] Adverse Reaction (Intermediate, Verified 06/05/24 08:16) Shortness of Breath Medication List - Last Reconciled 06/05/24 by Francis Lovett PA-C alprazolam 0.5 mg PO BID PRN 30 days aspirin (Adult Low Dose Aspirin) 81 mg PO DAILY cholecalciferol (vitamin D3) 50 mcg PO DAILY coenzyme Q10 (CoQ-10) 100 mg PO DAILY epinephrine (EpiPen 2-Jc) 0.3 mg (0.3 mL) IM Q4H PRN evolocumab (Repatha SureCameronick) 140 mg subcut Q2W hydrochlorothiazide 12.5 mg PO QAM losartan 100 mg PO DAILY metoprolol succinate ER 100 mg PO DAILY 90 days multivitamin (Daily Multi-Vitamin tablet) 1 tab PO DAILY nitroglycerin 0.4 mg sublingual PER PKG DIR PRN omeprazole 20 mg PO QAM rosuvastatin 20 mg PO DAILY Tobacco use date assessed: 09/07/23 Fall risk assessment: No Falls in past year Last assessed Fall Risk: 06/05/24 Dental Screening Dental Screen Date: 09/07/23 HPI cough for weeks HPI Details Patient is a 74 year female here today a sick visit. She reports she has had a cough and minor shortness of breath for the last 3 weeks, has been using [id number] cough cold medication without much relief. She is not tested COVID. She does report her son was sick with a similar viral type symptoms. She otherwise denies any fevers, there is some productivity of her cough. [facility] Medical History Cataract Postmenopausal History of COVID-19 Thoracic back pain Dyspnea on exertion Former smoker, stopped smoking in distant past Right lower quadrant abdominal pain Paroxysmal atrial fibrillation HLD (hyperlipidemia) HTN (hypertension) PVD (peripheral vascular disease) CAD (coronary artery disease) Surgical History History of lung surgery (~2022) History of esophagogastroduodenoscopy (EGD) (~2020) History of breast biopsy (~1996) History of colonoscopy (~2020) History of cardiac cath (~2019) History of cholecystectomy (~2018) Stented coronary artery (~2017) Family History Father Sudden cardiac CVD (cardiovascular disease) Mother Stroke HTN (hypertension) Myocardial infarction Social History Household Members: Spouse Housing: House Are you a primary career placement specialist to a significant other at home: No Do you presently have visiting nurse or other home services: No Alcohol intake: current Alcohol intake frequency: holidays/special occasions only Alcohol type: wine Comment: 2 days of the week 2 glasses Patient Tobacco Use Status: Former Tobacco user Tobacco use type: Cigarette Years Smoked: quit 1983 e-Cigarette/Vaping Use: Never Used Second Hand Smoke Exposure: No service: No Current occupational status: retired Cognitive needs: No Hearing needs: No Vision needs: Yes Questionnaire Thrive Questionnaire Date Thrive assessed: 09/07/23 AUDIT C Alcohol Use Questionnaire (AUDIT-C) 1. How often do you have a drink containing alcohol?: Monthly or less 2. How many drinks containing alcohol do you have on a typical day when you are drinking?: 1 or 2 3. How often do you have six or more drinks on one occasion?: Never Total Score: 1 TWILA-7 AMB Questionnaire TWILA-7 Date TWILA - 7 assessed: 09/07/23 Source: Developed by Drs. Harrison Mejia, Radha Koch, Huey Andrews and colleagues, with an educational donny from [employer]. Review of Systems Const Denies headache(s) Eyes Denies loss of vision ENT Denies vertigo, Denies dizziness, Denies headache(s) and Denies sore throat Card Denies chest pain, Denies leg edema and Denies lightheadedness Resp Denies cough, Denies hemoptysis and Denies wheezing GI Denies abdominal pain, Denies melena, Denies constipation, Denies diarrhea and Denies vomiting Denies urinary frequency, Denies dysuria and Denies urinary urgency Musc Denies arthralgias, Denies joint swelling, Denies numbness and Denies tingling Neuro Denies Abnormal speech present, Denies behavioral changes, Denies vertigo, Denies dizziness, Denies headache(s), Denies loss of vision, Denies memory loss, Denies numbness and Denies tingling Psych Denies anxiety, Denies behavioral changes, Denies depression, Denies memory loss and Denies panic attacks Thuan/Lymph Denies easy bleeding and Denies easy bruising Aller/Immun Denies wheezing Physical exam (Primary Care) Vital Signs: Last Vital Signs Pulse 58 06/05/24 08:05 BP 138/60 06/05/24 08:05 Pulse Ox 96 06/05/24 08:05 Oxygen Delivery Method Room Air 06/05/24 08:05 BMI result Body Mass Index 28.3 Tobacco/Smoking Status: Tobacco use Status Tobacco use date assessed 09/07/23 06/05/24 08:11 Patient Tobacco Use Status Former Tobacco user 06/05/24 08:11 Tobacco use type Cigarette 06/05/24 08:11 e-Cigarette/Vaping Use Never Used 06/05/24 08:11 Thrive Assessment: Date of Thrive Assessment Date Thrive assessed 09/07/23 06/05/24 08:11 Const General: healthy appearing, no acute distress, alert and awake Nutritional Appearance: well nourished Orientation/consciousness: oriented to person, oriented to place and oriented to time HENMT Ears: TM's normal bilaterally General nose exam: Normal nasal mucous membranes and turbinates present Eyes Conjunctivae: conjunctivae normal Sclerae: sclerae normal Pupils: Equal, round and reactive pupils present Neck Neck: Yes no lymphadenopathy and Yes no JVD Thyroid: Thyroid normal Carotids: no bruits Resp Other: COUGH DURING EXAM, NOTED BILATERAL LUNG FIELD CRACKLES AND SLIGHT WHEEZE. Effort & Inspection: Actively coughing Auscultation: crackles, no rales, no rhonchi and wheezes Cardio Rate: regular rate Rhythm: regular rhythm Heart sounds: no murmurs and normal S1 and S2 GI Palpation (GI): Soft to palpation, nontender, no hepatomegaly and no splenomegaly Auscultation: normal bowel sounds Skin General skin exam: no rashes or lesions noted and dry skin Neuro General: oriented to person, oriented to place and oriented to time Cranial nerves: Yes Equal, round and reactive pupils present Speech: No Abnormal speech present Gait exam (Neuro): Normal gait present Motor exam (neuro): no tremor noted Extrem Right upper extremity: full ROM Left upper extremity: full ROM Right lower extremity: full ROM; no edema Left lower extremity: full ROM; no edema Psych Mental Status: mental status grossly normal Speech and movement: Normal speech and movement present Affect: normal affect Attitude: cooperative Thought process: Normal thought process present Coding Level of Care Code Est Pt Level 3 (96636) Diagnoses Bronchitis J40 Assessment & Plan Assessment & Plan (1) Bronchitis: Code(s): J40 - Bronchitis, not specified as acute or chronic Category: Medical Plan: Patient's signs and symptoms most consistent with a upper respiratory infection. Does have crackles in his slight wheeze on physical exam. Oxygen saturation appropriate today. Will send for x-ray to evaluate for pulmonary infiltrate. Due to symptoms being over last 2 weeks--> Will treat empirically with azithromycin and a prednisone taper. Orders: Orders XR chest 2V Today J40 - Bronchitis, not specified as acute or chronic Medications: New prednisone Take 3 tablets x2 days, 2 tablets x2 days, 1 tablet x2 days 10 mg PO DIRECTED 6 days 12 tabs 0RF J40 - Bronchitis, not specified as acute or chronic azithromycin For 250 mg dose pack: take 500 mg today (day 1), then 250 mg for 4 days (days 2-5) PO 6 tabs 0RF J40 - Bronchitis, not specified as acute or chronic
== END 2024-06-05 08:28 | disposition home or self-care (01) ==
LOC: HO.HMCH 07:57
PROVIDERS: PCP Internal Medicine; Visit Provider Physician Assistant
DX: J40 Bronchitis, not specified as acute or chronic (principal)

== ENCOUNTER 2024-06-05 07:57 | Outpatient (REF) | payer MEDICARE, OTHER, SELFPAY ==
--- NOTE | ~2024-06-05 | XR_ITS ---
EXAMINATION: XR CHEST 2 VIEWS CLINICAL INFORMATION: Bronchitis; cough of 3 weeks' duration. COMPARISON: CT chest dated 11/30/2022; chest radiograph dated 05/13/2020. TECHNIQUE: Frontal and lateral views of the chest were obtained. FINDINGS: The heart, great vessels, pulmonary vasculature and mediastinum are normal. The lungs show no focal infiltrate, effusion or pneumothorax. There is no acute osseous abnormality. XR/XR chest 2V IMPRESSION: No active cardiopulmonary disease. Electronically signed by: Darrell Mejias MD 06/05/2024 12:39 PM EDT
== END 2024-06-05 07:58 | disposition home or self-care (01) ==
LOC: HO.XRAY 07:57
PROVIDERS: PCP Internal Medicine; Visit Provider Physician Assistant
DX: J40 Bronchitis, not specified as acute or chronic (principal)
CPT/HCPCS: 71046; 99212

== ENCOUNTER 2024-07-14 08:14 | Emergency (ER) | payer MEDICARE, OTHER, SELFPAY ==
--- NOTE | ~2024-07-14 | XR_ITS ---
EXAMINATION: XR CHEST CLINICAL INFORMATION: Cough. COMPARISON: Most recent chest radiograph dated 06/05/2024. TECHNIQUE: 2 views of the chest were obtained. FINDINGS: The lungs are clear. The cardiomediastinal silhouette is normal in size. There is no pleural effusion or pneumothorax. No acute osseous abnormality. XR/XR chest 2V IMPRESSION: No acute cardiopulmonary findings. Electronically signed by: Brandon Thomas MD 07/14/2024 10:42 AM [facility]
[2024-07-14 08:19] VITALS: BP 165/54; PULSE 56; RESP 20; TEMP 36.2; O2SAT 99; BMI 28.8
--- NOTE | 2024-07-14 08:46 | PC.NURSE ---
Pt reporting she finished her Zpack and Prednisone treatment which helped her cough, however she is still struggling with thick clear mucus, pt reporting she had a repeat chest xray, that was clear. Denies any other new symptoms.
[2024-07-14 08:48] LABS: MANUAL DIFF FLAG NO
[2024-07-14 08:50] LABS: Basophils Absolute Auto 0.1 X10*3/uL (0.0-0.2); Basophils Percent Auto 0.9 % (0-2); Eosinophils Absolute Auto 0.2 X10*3/uL (0.0-0.4); Eosinophils Percent Auto 2.8 % (0-4); Hematocrit 35.7 % (37.0-47.0); Hemoglobin 12.5 g/dl (12.0-16.0); Imm Gran Abs Auto 0.01 X10*3/uL (0.00-0.03); Imm Gran Pct Auto 0.2 % (0.0-0.4); Lymphocytes Absolute Auto 2.2 X10*3/uL (1.2-4.9); Lymphocytes Percent Auto 34.1 % (20-40); Mean Corpuscular Hemoglobin 32.5 pg (27.0-33.0); Mean Corpuscular Volume 92.7 fL (80.0-98.0); Mean Platelet Volume 10.8 fL (9.4-12.3); Monocytes Absolute Auto 0.6 X10*3/uL (0.1-1.2); Monocytes Percent Auto 9.4 % (2-11); Neutrophils Absolute Auto 3.4 x10*3/uL (2.0-8.3); Neutrophils Percent Auto 52.6 % (45-73); Platelet Count 179 X10*3/uL (160-400); Red Blood Count 3.85 X10*6/uL (4.20-5.50); Red Cell Distribution Width 12.6 % (11.0-16.0); White Blood Count 6.4 X10*3/uL (4.8-10.8)
--- NOTE | 2024-07-14 09:01 | ED.GENADULT ---
HPI - General Adult General Chief complaint: General Medical Stated complaint: SOB, lethargic from cardiology Time Seen by Provider: 07/14/24 09:00 Source: patient Limitations: no limitations History of Present Illness HPI narrative: presented c/o cough and congestion ,denies fever and chills,4 weeks ago had a couse of zLucerojc and prednisone got better but cough returned Onset (ago): day(s) (4) Location: chest Radiation: non-radiation Severity: mild Pain Consistency: constant Relieving factors: none Exacerbating factors: none Related Data Home Medications ?Medication ?Instructions ?Recorded ?Confirmed aspirin 81 mg tablet,delayed 81 mg PO DAILY 05/24/20 06/05/24 release (Adult Low Dose Aspirin) nitroglycerin 0.4 mg sublingual 0.4 mg sublingual PER PKG DIR PRN 05/24/20 06/05/24 tablet Chest Pain cholecalciferol (vitamin D3) 50 50 mcg PO DAILY 06/09/20 06/05/24 mcg (2,000 unit) capsule multivitamin (Daily Multi-Vitamin 1 tab PO DAILY 06/09/20 06/05/24 tablet) coenzyme Q10 100 mg capsule 100 mg PO DAILY 09/04/22 06/05/24 (CoQ-10) Previous Rx's ?Medication ?Instructions ?Recorded rosuvastatin 20 mg tablet 20 mg PO DAILY #90 tabs 02/23/24 losartan 100 mg tablet 100 mg PO DAILY #90 tabs 04/20/24 alprazolam 0.5 mg tablet 0.5 mg PO BID PRN Anxiety 30 days 05/12/24 #35 tabs azithromycin 250 mg tablet See Rx Instructions PO .COMPLEX #6 06/05/24 tabs prednisone 10 mg tablet 10 mg PO DIRECTED 6 days #12 06/05/24 tabs albuterol sulfate 90 mcg/actuation 1 inh inhalation QID PRN shortness 06/09/24 aerosol inhaler of breath or wheezing 30 days #8.5 grams epinephrine 0.3 mg/0.3 mL 0.3 mg (0.3 mL) IM Q4H PRN 07/08/24 injection, auto-injector (EpiPen anaphylaxis #2 ea 2-Jc) evolocumab 140 mg/mL subcutaneous 140 mg subcut Q2W #2 mL 07/08/24 pen injector (Repatha SureClick) metoprolol succinate 100 mg 100 mg PO DAILY 90 days #90 tabs 07/08/24 tablet,extended release 24 hr omeprazole 20 mg capsule,delayed 20 mg PO QAM #90 caps 07/08/24 release doxycycline monohydrate 100 mg 100 mg PO BID #14 caps 07/14/24 capsule (Monodox) hydrochlorothiazide 12.5 mg tablet 12.5 mg PO QAM #90 tabs 07/14/24 prednisone 20 mg tablet 40 mg (2 x 20 mg) PO DAILY #8 tabs 07/14/24 Allergies Allergy/AdvReac Type Severity Reaction Status Date / Time bee pollen [bee stings] Allergy Severe Anaphylaxis Verified 07/14/24 08:23 lisinopril [LISINOPRIL] AdvReac Intermediate COUGH Verified 07/14/24 08:23 Zepgdkr-[id number] Reductase AdvReac Intermediate MUSCLE Verified 07/14/24 08:23 Inhibitor ACHES [[id number] REDUCTASE INHIBITOR] ticagrelor [Brilinta] AdvReac Intermediate Shortness Verified 07/14/24 08:23 of Breath Review of Systems Review of Systems: Yes all other systems are reviewed and are negative Cardiovascular: Cardiovascular: Denies chest pain Respiratory: Respiratory: Reports chest congestion, Reports cough, Denies hemoptysis, Denies pain on inspiration and Denies pain with cough PMFSH Past Medical History Attestation statement: The following information was validated with the patient. Medical History Cataract Postmenopausal History of COVID-19 Thoracic back pain Dyspnea on exertion Former smoker, stopped smoking in distant past Right lower quadrant abdominal pain Paroxysmal atrial fibrillation HLD (hyperlipidemia) HTN (hypertension) PVD (peripheral vascular disease) CAD (coronary artery disease) Surgical History History of lung surgery (~2022) History of esophagogastroduodenoscopy (EGD) (~2020) History of breast biopsy (~1996) History of colonoscopy (~2020) History of cardiac cath (~2019) History of cholecystectomy (~2018) Stented coronary artery (~2017) Family History Family History Father Sudden cardiac CVD (cardiovascular disease) Mother Stroke HTN (hypertension) Myocardial infarction Social History Social History Household Members: Spouse Housing: House Are you a primary healthcare science specialist to a significant other at home: No Do you presently have visiting nurse or other home services: No Alcohol intake: current Alcohol intake frequency: holidays/special occasions only Alcohol type: wine Comment: 2 days of the week 2 glasses Patient Tobacco Use Status: Former Tobacco user Tobacco use type: Cigarette Years Smoked: 1983 e-Cigarette/Vaping Use: Never Used Second Hand Smoke Exposure: No Advance Directives: No Advance Directives Information Provided: Yes Do you have a plan to hurt others: No Plan service: No Current occupational status: retired Cognitive needs: No Hearing needs: No Vision needs: Yes Physical Exam ED Vital Signs: Vital Signs - 24 hr 07/14/24 08:19 Temperature 97.1 F Pulse Rate 56 Respiratory Rate 20 Blood Pressure 165/54 H Pulse Oximetry 99 Oxygen Delivery Method Room Air BMI result Body Mass Index 28.8 She looks well she is not toxic-appearing. She is talking full sentences Const General: healthy appearing, comfortable and no acute distress Nutritional Appearance: average body habitus Orientation/consciousness: patient oriented x3 HENMT Head: Yes normal to inspection General nose exam: Normal external nose present Face and sinus: Yes normal facial exam Mouth: Normal oral and palatal mucosa present Neck Neck: Yes normal visual inspection and Yes full ROM Chest Chest palpation & inspection: normal inspection of the chest Resp Effort & Inspection: normal respiratory effort Auscultation: rhonchi Cardio Jugular venous distension: no JVD Palpation: normal PMI Rate: regular rate Rhythm: regular rhythm GI Inspection: Yes normal to inspection Palpation (GI): Soft to palpation, not firm, nontender and no guarding Auscultation: normal bowel sounds Skin General skin exam: no rashes or lesions noted, elasticity normal and turgor normal Lesions: no lesions Rashes: no rashes Neuro General: patient oriented x3 Cranial nerves: Yes CN's II-XII intact bilaterally Course Reevaluation(s) Reevaluation #1: workup is now completed labs are okay she has a slightly elevated BNP 194 but I do not think she is in our failure she has no JVD she has no ankle edema she can lie flat easily the clinical picture is not consistent with congestive heart failure. Medical Decision Making Lab Data 07/14/24 08:44 07/14/24 08:44 Labs: Lab Results 07/14/24 07/14/24 Range/Units 08:44 08:47 WBC 6.4 (4.8-10.8) X10*3/uL RBC 3.85 L (4.20-5.50) X10*6/uL Hgb 12.5 (12.0-16.0) g/dl Hct 35.7 L (37.0-47.0) % MCV 92.7 (80.0-98.0) fL MCH 32.5 (27.0-33.0) pg MCHC 35.0 (31.0-35.0) g/dl RDW 12.6 (11.0-16.0) % Plt Count 179 (160-400) X10*3/uL MPV 10.8 (9.4-12.3) fL Immature Gran % (Auto) 0.2 (0.0-0.4) % Neut % (Auto) 52.6 (45-73) % Lymph % (Auto) 34.1 (20-40) % [place] % (Auto) 9.4 (2-11) % Eos % (Auto) 2.8 (0-4) % Baso % (Auto) 0.9 (0-2) % Lymph # (Auto) 2.2 (1.2-4.9) X10*3/uL [place] # (Auto) 0.6 (0.1-1.2) X10*3/uL Eos # (Auto) 0.2 (0.0-0.4) X10*3/uL Baso # (Auto) 0.1 (0.0-0.2) X10*3/uL Abs Immat Gran (auto) 0.01 (0.00-0.03) X10*3/uL Absolute Neuts (auto) 3.4 (2.0-8.3) x10*3/uL Absolute Nucleated RBC 0.000 (0.0-0.012) X10*3/uL Nucleated RBC % (auto) 0.0 (0.0-0.2) /100WBC Sodium 137 (135-145) mmol/L Potassium 3.5 (3.3-5.1) mmol/L Chloride 104 (96-108) mmol/L Carbon Dioxide 27 (22-29) mmol/L Anion Gap 10 L (12-20) BUN 27 H (9-16) mg/dL Creatinine 1.03 (0.5-1.4) mg/dL Estim Creat Clear Calc 53.9 Estimated GFR 53 Random Glucose 103 (60-115) mg/dL Calcium 9.5 (8.4-10.2) mg/dL Total Bilirubin 0.8 (0.0-1.0) mg/dL Direct Bilirubin 0.3 (0.0-0.5) mg/dL AST 19 (5-31) U/L ALT 9 (0-31) U/L Alkaline Phosphatase 58 (39-117) U/L Troponin I High Sens 5.7 (<3.5-17.0) ng/L B-Natriuretic Peptide 194 H (<100) pg/mL Total Protein 6.6 (6.5-8.0) g/dL Albumin 4.1 (3.5-5.0) g/dL Lipase 45 (8-78) U/L Influenza Type A (PCR) NEGATIVE (Negative) Influenza Type B (PCR) NEGATIVE (Negative) RSV RNA Qual (PCR) NEGATIVE (Negative) SARS-CoV-2 RNA (RT-PCR) NEGATIVE (Negative) Discharge Plan Discharge Clinical Impression: Bronchitis Patient Disposition: Home, Self-Care Instructions: Acute Bronchitis (ED) Prescriptions: New doxycycline monohydrate [Monodox] 100 mg capsule 100 mg PO BID Qty: 14 0RF prednisone 20 mg tablet 40 mg PO DAILY Qty: 8 0RF No Action rosuvastatin 20 mg tablet 20 mg PO DAILY Qty: 90 3RF losartan 100 mg tablet 100 mg PO DAILY Qty: 90 3RF alprazolam 0.5 mg tablet 0.5 mg PO BID PRN (Reason: Anxiety) 30 Days Qty: 35 2RF albuterol sulfate 90 mcg/actuation HFA aerosol inhaler 1 inh inhalation QID PRN (Reason: shortness of breath or wheezing) 30 Days Qty: 8.5 1RF Repatha SureClick 140 mg/mL pen injector 140 mg subcut Q2W Qty: 2 2RF epinephrine [EpiPen 2-Jc] 0.3 mg/0.3 mL auto-injector 0.3 mg IM Q4H PRN (Reason: anaphylaxis) Qty: 2 0RF metoprolol succinate 100 mg tablet extended release 24 hr 100 mg PO DAILY 90 Days Qty: 90 3RF omeprazole 20 mg capsule,delayed release(DR/EC) 20 mg PO QAM Qty: 90 2RF hydrochlorothiazide 12.5 mg tablet 12.5 mg PO QAM Qty: 90 0RF coenzyme Q10 [CoQ-10] 100 mg capsule 100 mg PO DAILY aspirin [Adult Low Dose Aspirin] 81 mg tablet,delayed release (DR/EC) 81 mg PO DAILY nitroglycerin 0.4 mg tablet, sublingual 0.4 mg sublingual PER PKG DIR PRN (Reason: Chest Pain) cholecalciferol (vitamin D3) 50 mcg (2,000 unit) capsule 50 mcg PO DAILY multivitamin [Daily Multi-Vitamin] Tablet 1 tab PO DAILY azithromycin 250 mg tablet See Rx Instructions PO .COMPLEX Qty: 6 0RF Rx Instructions: For 250 mg dose pack: take 500 mg today (day 1), then 250 mg for 4 days (days 2-5) PO prednisone 10 mg tablet 10 mg PO DIRECTED 6 Days Qty: 12 0RF Rx Instructions: Take 3 tablets x2 days, 2 tablets x2 days, 1 tablet x2 days Referrals: Po,Esvin Hansen MD [Primary Care Provider] - 2 days Interventions: ED Discharge Assessment Last Done: 07/14/24 12:41 Discharge Date/Time: 07/14/24 12:42 Print Language: Colombian
[2024-07-14 09:05] LABS: Alanine Aminotransferase 9 U/L (0-31); Albumin Level 4.1 g/dL (3.5-5.0); Alkaline Phosphatase 58 U/L (39-117); Anion Gap 10 (12-20); Aspartate Amino Transferase 19 U/L (5-31); Bilirubin Direct 0.3 mg/dL (0.0-0.5); Bilirubin Total 0.8 mg/dL (0.0-1.0); Blood Urea Nitrogen 27 mg/dL (9-16); Calcium 9.5 mg/dL (8.4-10.2); Carbon Dioxide 27 mmol/L (22-29); Chloride 104 mmol/L (96-108); Creatinine Clr Calc Pharmacy 53.9; Estimated Glomerular Filt Rate 53; Glucose Random 103 mg/dL (60-115); Lipase 45 U/L (8-78); Potassium 3.5 mmol/L (3.3-5.1); Sodium 137 mmol/L (135-145); Total Protein 6.6 g/dL (6.5-8.0)
[2024-07-14 09:11] LABS: B Type Natriuretic Peptide 194 pg/mL (<100)
[2024-07-14 09:28] LABS: Influenza A PCR NEGATIVE (Negative); Influenza B PCR NEGATIVE (Negative); Resp Syncy Virus RNA Qual PCR NEGATIVE (Negative); SARS COV2 PCR INHOUSE NEGATIVE (Negative)
[2024-07-14 11:52] LABS: Troponin-I High Sensitivity 5.7 ng/L (<3.5-17.0)
[2024-07-14 12:09] VITALS: BP 118/47; PULSE 55; RESP 14; TEMP 36.4; O2SAT 100
[2024-07-14 12:41] VITALS: BP 118/47; PULSE 55; RESP 14; TEMP 36.4; O2SAT 100
== END 2024-07-14 12:42 | disposition home or self-care (01) ==
PROVIDERS: Emergency Provider Emergency Medicine; PCP Internal Medicine
DX: J40 Bronchitis, not specified as acute or chronic (principal); R06.02 Shortness of breath; R50.9 Fever, unspecified; Z03.818 Encounter for observation for suspected exposure to other biological agents ruled out; Z79.899 Other long term (current) drug therapy; Z87.891 Personal history of nicotine dependence
CPT/HCPCS: 0241U; 71046; 80048; 80076; 83690; 83880; 84484; 85025; 99283; 99284

== ENCOUNTER 2024-08-28 06:05 | Outpatient (REF) | payer MEDICARE, OTHER, SELFPAY ==
[2024-08-28 06:26] LABS: MANUAL DIFF FLAG NO
[2024-08-28 07:34] LABS: Basophils Absolute Auto 0.1 X10*3/uL (0.0-0.2); Basophils Percent Auto 0.9 % (0-2); Eosinophils Absolute Auto 0.2 X10*3/uL (0.0-0.4); Eosinophils Percent Auto 2.6 % (0-4); Hematocrit 37.8 % (37.0-47.0); Imm Gran Abs Auto 0.02 X10*3/uL (0.00-0.03); Imm Gran Pct Auto 0.3 % (0.0-0.4); Lymphocytes Absolute Auto 2.3 X10*3/uL (1.2-4.9); Lymphocytes Percent Auto 33.9 % (20-40); Mean Corpuscular HGB Conc 34.4 g/dl (31.0-35.0); Mean Corpuscular Volume 93.1 fL (80.0-98.0); Mean Platelet Volume 11.5 fL (9.4-12.3); Monocytes Absolute Auto 0.6 X10*3/uL (0.1-1.2); Neutrophils Absolute Auto 3.8 x10*3/uL (2.0-8.3); Neutrophils Percent Auto 54.3 % (45-73); Platelet Count 172 X10*3/uL (160-400); Red Blood Count 4.06 X10*6/uL (4.20-5.50); Red Cell Distribution Width 12.4 % (11.0-16.0); White Blood Count 6.9 X10*3/uL (4.8-10.8)
[2024-08-28 08:07] LABS: Alanine Aminotransferase 20 U/L (0-31); Albumin Level 4.2 g/dL (3.5-5.0); Alkaline Phosphatase 68 U/L (39-117); Anion Gap 11 (12-20); Aspartate Amino Transferase 30 U/L (5-31); Bilirubin Total 1.6 mg/dL (0.0-1.0); Blood Urea Nitrogen 15 mg/dL (9-16); Calcium 9.7 mg/dL (8.4-10.2); Carbon Dioxide 27 mmol/L (22-29); Chloride 107 mmol/L (96-108); Cholesterol 110 mg/dL (<200); Estimated Glomerular Filt Rate 38; Glucose Random 92 mg/dL (60-115); HDL Cholesterol 55 mg/dL (>40); LDL Cholesterol Calculated 40 mg/dL (<100); Magnesium 1.9 mg/dL (1.6-2.6); Sodium 141 mmol/L (135-145); Triglycerides 78 mg/dL (<150)
[2024-08-28 08:27] LABS: Free T4 (Free Thyroxine) 0.96 ng/dL (0.71-1.85); Thyroid Stimulating Hormone 3.89 uIU/mL (0.32-4.0); Vitamin D 25-OH Total 62.9 ng/mL (>30)
[2024-08-28 08:31] LABS: Vitamin B12 563 pg/mL (200-900)
[2024-08-28 10:25] LABS: Folate 17.9 ng/mL (> or = 4.0)
== END 2024-08-28 06:06 | disposition home or self-care (01) ==
LOC: HO.LAB 06:05
PROVIDERS: PCP Internal Medicine; Visit Provider Internal Medicine
DX: I48.0 Paroxysmal atrial fibrillation (principal); E78.00 Pure hypercholesterolemia, unspecified
CPT/HCPCS: 36415; 80053; 80061; 82306; 82607; 82746; 83735; 84439; 84443; 85025

== ENCOUNTER 2024-09-09 08:46 | Outpatient (AMB) | payer MEDICARE, OTHER, SELFPAY ==
--- OUTSIDE RECORDS SUMMARY | 2024-09-09 08:59 | XMS_ITS | Clinical Summary ---
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[employer] Insurance Name Role Phone Esvin Basilio MD Primary Care Provider [phone] Social History Tobacco Use Types Packs/Day Years Used Date Smoking Tobacco: Former Smokeless Tobacco: Never Sex and Gender Information Value Date Recorded Sex Assigned at Not on file Gender Identity Not on file Sexual Orientation Not on file Obstetrics History Last Filed Vital Signs Vital Sign Reading Time Taken Comments Blood Pressure 166/97 09/19/2022 11:58 AM EST Si tting L Arm Pulse 59 09/19/2022 11:58 AM EST Temperature - - Respiratory Rate - - Oxygen Saturation - - Inhaled Oxygen Concentration - - Weight 79.8 kg (176 lb) 09/19/2022 11:58 AM EST Height 170.2 cm (5' 7 ) 09/19/2022 11:58 AM EST Body Mass Index 27.57 09/19/2022 11:58 AM EST Plan of Treatment Health Maintenance Due Date Last Done Comments Breast Cancer Screening 1950 DTaP,Tdap,and Td Vaccines (1 - Tdap) 1970 Zoster Vaccines (1 of 2) 2001 Pneumococcal Vaccine: 65+ Ye ars (1 of 1 - PCV) 01/24/2016 Colorectal Cancer Screening: Colonoscopy 09/04/2023 Depression Screening 09/04/2023 Falls Risk Assessment 09/04/2023 Hepatitis C Screening 09/04/2023 Osteoporosis Screening (Bone Density Screening) 09/04/2023 Social Influencers of Health Screening 09/04/2023 COVID-19 Vaccine ( - 2023-2 5 season) 2024 Influenza Vaccine (#1) 2024 RSV Immunization Patients 60 + Years Old (1 - 1-dose 75+ series) 2026 HIB Vaccines Aged Out No longer eligi ble based on patient's age to complete this topic HPV Vaccines Aged Out No longer eligi ble based on patient's age to complete this topic Hepatitis A Vaccines Aged Out No long er eligible based on patient's age to complete this topic Hepatitis B Vaccines Aged Out No long er eligible based on patient's age to complete this topic IPV Vaccines Aged Out No longer eligi ble based on patient's age to complete this topic MMR Vaccines Aged Out No longer eligi ble based on patient's age to complete this topic Meningococcal ACWY Vaccine Aged Out N o longer eligible based on patient's age to complete this topic RSV Immunization Patients Un john 20 months Aged Out No longer eligible b ased on patient's age to complete this topic Varicella Vaccines Aged Out No longer eligible based on patient's age to complete this topic Care Teams 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
[2024-09-09 09:16] VITALS: BP 122/72; PULSE 72; BMI 28.0
--- NOTE | 2024-09-09 09:16 | MHC.PC.OV ---
Vital Signs 09/09/24 09:16 Height 5 ft 7 in Weight 179 lb BMI 28.0 BP 122/72 Blood Pressure Location Lt brachial Position Sitting Pulse 72 Pulse Source Pulse Oximeter Intake Visit Reasons: pe Allergies bee pollen [bee stings] Allergy (Severe, Verified 09/09/24 09:16) Anaphylaxis lisinopril [LISINOPRIL] Adverse Reaction (Intermediate, Verified 09/09/24 09:16) COUGH Ttrgfxs-FMD-AmC Reductase Inhibitor [FMLSEDA-VCT-RHW REDUCTASE INHIBITOR] Adverse Reaction (Intermediate, Verified 09/09/24 09:16) MUSCLE ACHES ticagrelor [Brilinta] Adverse Reaction (Intermediate, Verified 09/09/24 09:16) Shortness of Breath Medication List - Last Reconciled 09/09/24 by Esvin Basilio MD albuterol sulfate 90 mcg/actuation 1 inh inhalation QID PRN 30 days alprazolam 0.5 mg PO BID PRN 30 days aspirin (Adult Low Dose Aspirin) 81 mg PO DAILY cetirizine 10 mg PO DAILY PRN cholecalciferol (vitamin D3) 50 mcg PO DAILY coenzyme Q10 (CoQ-10) 100 mg PO DAILY epinephrine (EpiPen 2-Jc) 0.3 mg (0.3 mL) IM Q4H PRN evolocumab (Repatha SureClick) 140 mg subcut Q2W hydrochlorothiazide 12.5 mg PO QAM lactobacillus combo no.11 (Probiotic) 1 cap PO DAILY losartan 100 mg PO DAILY metoprolol succinate ER 100 mg PO DAILY 90 days multivitamin (Daily Multi-Vitamin tablet) 1 tab PO DAILY nitroglycerin 0.4 mg sublingual PER PKG DIR PRN omeprazole 20 mg PO QAM rosuvastatin 20 mg PO DAILY simethicone (Gas Relief (simethicone)) 125 mg PO BID-QID PRN Tobacco use date assessed: 09/09/24 Fall risk assessment: No Falls in past year Last assessed Fall Risk: 09/09/24 Dental Screening Dental Screen Date: 09/09/24 Did you have a dental visit in the last 12 months?: Yes Did you have a dental problem in the last 6 months where you did not have access to dental care?: No Was dental information given to patient?: Patient has dentist HPI pe HPI Details lipghtheaded . cough states chest tightness,. upper back pain. complains of feet tingling morning is better Was taking advil and advised to stop them. will repeat renal test The patient is a 74-year-old female presenting for a physical exam and evaluation of multiple chronic conditions. She has a history of coronary artery disease, for which she had a drug-eluting stent placed in the right coronary artery; this condition currently appears stable without symptoms of angina. For hypercholesterolemia, she is on Repatha and rosuvastatin, maintaining her LDL goal of less than 65 mg/dL effectively. In terms of essential hypertension, her regimen includes losartan, hydrochlorothiazide, and metoprolol, though there have been recent adjustments due to low blood pressure readings that led her to skip doses. She was evaluated for general anxiety disorder, and while she is on pro re chantal (prn) oprazole, the specific agent for anxiety was not well-controlled. Her COPD was addressed, particularly the exacerbations in recent months, treated with antibiotics and inhalers when necessary; however, the inhaler side effects were undesirable, prompting reconsideration of alternatives. The patient?s GERD symptomology persists but appears to be managed with omeprazole. She recently encountered two episodes of bronchitis, each treated with doxycycline and prednisone, in the emergency setting. A secondary problem is peripheral vascular disease, and there's mention of stable paroxysmal atrial fibrillation, although no recent episodes have been problematic. She experienced some respiratory issues potentially linked with allergic rhinitis and occasionally takes Zyrtec for relief. Diagnostic imaging results such as chest X-ray reports came back negative, although she expressed concern regarding episodes of tachycardia, potentially suggestive of supraventricular tachycardia (SVT). Renal function remains a critical point of concern with a noted previous elevation in serum creatinine, and discussions regarding chronic use of medications that may impact renal function are ongoing. In terms of musculoskeletal complaints, she reports an increasing occurrence of back pain that exacerbates when standing too long, though this was attributed mostly to muscular origin during examination without specific spinal pathology noted in recent imaging assessments. 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 - Colonoscopy done in April 2021. - Bone density screening was conducted in October 2022. - Mammogram scheduled for April 2024. - Blood work in August 2024 showed normal blood counts, electrolytes, and improved kidney function, though creatinine was slightly elevated. - Up-to-date with immunizations including pneumococcal and shingles vaccines. - RSV vaccination performed last year. - Denies current alcohol consumption; last intake during (one glass of wine). - Denies tobacco use. - Exercises caution with Sudafed due to potential cardiovascular effects. - Nutrition: Consumes yogurt with coffee for breakfast, usually has a large salad for lunch, and fruit as a snack. Reduces intake of red meat. - Experiences tingling sensation in feet at night, resolves in the morning. 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 - Constitutional: Reports intentional weight loss; denies fever. - Cardiovascular: Denies chest pain but experiences intermittent tachycardia. - Respiratory: Reports cough and shortness of breath; denies wheezing. - Gastrointestinal: Reports clear sputum, constant GERD symptoms, and loose stools. - Musculoskeletal: Reports back pain exacerbated by prolonged standing; denies joint pain. - Neurological: Reports occasional vertigo and nighttime tingling sensation in feet. - Skin: Reports resolved rash. - Psychiatric: Reports anxiety; denies depression. [facility] Medical History Cataract Postmenopausal History of COVID-19 Thoracic back pain Dyspnea on exertion Former smoker, stopped smoking in distant past Right lower quadrant abdominal pain Paroxysmal atrial fibrillation HLD (hyperlipidemia) HTN (hypertension) PVD (peripheral vascular disease) CAD (coronary artery disease) Surgical History History of lung surgery (~2022) History of esophagogastroduodenoscopy (EGD) (~2020) History of breast biopsy (~1996) History of colonoscopy (~2020) History of cardiac cath (~2019) History of cholecystectomy (~2018) Stented coronary artery (~2017) Family History Father Sudden cardiac CVD (cardiovascular disease) Mother Stroke HTN (hypertension) Myocardial infarction Social History (Updated 09/09/24 @ 09:49 by Esvin Basilio MD) Household Members: Spouse Housing: House Are you a primary medicare insurance specialist to a significant other at home: No Do you presently have visiting nurse or other home services: No Alcohol intake: current Alcohol intake frequency: holidays/special occasions only Alcohol type: wine Comment: 2 days of the week 2 glasses, last drink 2023 Patient Tobacco Use Status: Former Tobacco user Tobacco use type: Cigarette Years Smoked: quit 1983 e-Cigarette/Vaping Use: Never Used Second Hand Smoke Exposure: No service: No Current occupational status: retired Cognitive needs: No Hearing needs: No Vision needs: Yes Questionnaire PHQ-9 Over the last 2 weeks, how often have you been bothered by any of the following problems? 1. Little interest or pleasure in doing things: not at all 2. Feeling down, depressed, or hopeless: not at all 3. Trouble falling or staying asleep, or sleeping too much: several days 4. Feeling tired or having little energy: several days 5. Poor appetite or overeating: several days 6. Feeling bad about yourself - or that you are a failure or have let yourself or your family down: not at all 7. Trouble concentrating on things, such as reading the newspaper or watching television: not at all 8. Moving or speaking so slowly that other people could have noticed. Or the opposite - being so fidgety or restless that you have been moving around a lot more than usual: not at all 9. Thoughts that you would be better off or of hurting yourself in some way: not at all Total score: 3 Source: Developed by Drs. Harrison Mejia, Radha Koch, Huey Andrews and colleagues, with an educational donny from [employer]. Thrive Questionnaire Date Thrive assessed: 09/09/24 I am a: Patient What is your living situation today?: I have a steady place to live Within the past 12 months, did the food you bought not last and you didn't have the money to get more?: Never true Within the past 12 months, did you worry whether your food would run out before you got money to buy more?: Never true Do you have trouble paying for medicines?: No Do you have trouble getting transportation to medical appointments?: No Do you have trouble paying your heating and electricity bill?: No Do you have trouble taking care of your child, family member or friend?: No Do you have trouble with day-to-day activities such as bathing, preparing meals, shopping, managing finances, etc.?: No Are you currently unemployed and looking for a job?: No Are you interested in more education?: No Please select the resources that you would like help with: None Currently or been in a relationship where the following occur: No concerns reported THRIVE Score: 0 AUDIT C Alcohol Use Questionnaire (AUDIT-C) 1. How often do you have a drink containing alcohol?: Monthly or less 2. How many drinks containing alcohol do you have on a typical day when you are drinking?: 1 or 2 3. How often do you have six or more drinks on one occasion?: Never Total Score: 1 TWILA-7 AMB Questionnaire TWILA-7 Date TWILA - 7 assessed: 09/09/24 Feeling nervous, anxious, or on edge: 1 = Several days Not being able to stop or control worryin = Not at all Worrying too much about different things: 1 = Several days Trouble relaxin = Not at all Being so restless that it is hard to sit still: 0 = Not at all Becoming easily annoyed or irritable: 0 = Not at all Feeling afraid as if something awful might happen: 0 = Not at all Total TWILA-7 score (0-4 normal; 5-9 mild; 10-14 moderate; 15-21 severe): 2 Source: Developed by Drs. Harrison Mejia, Radha Koch, Huey Andrews and colleagues, with an educational donny from [employer]. Review of Systems Const Denies poor appetite and Denies weakness Eyes Denies no additional complaints ENT Reports Normal hearing present, Denies dizziness, Denies nasal congestion, Denies tinnitus and Denies sore throat Card Denies chest pain, Denies syncope, Denies rapid heart rate and Denies dyspnea Resp Denies cough and Denies dyspnea GI Denies change in stool character, Reports constipation, Denies diarrhea, Denies nausea and Denies vomiting Denies urinary frequency, Denies difficulty voiding and Denies dysuria Neuro Reports Normal hearing present, Denies confusion, Denies dizziness, Denies syncope and Denies weakness Psych Denies confusion Physical exam (Primary Care) Vital Signs: Last Vital Signs Pulse 72 09/09/24 09:16 BP 122/72 09/09/24 09:16 BMI result Body Mass Index 28.0 Tobacco/Smoking Status: Tobacco use Status Tobacco use date assessed 09/09/24 09/09/24 09:22 Patient Tobacco Use Status Former Tobacco user 09/09/24 09:49 Tobacco use type Cigarette 09/09/24 09:49 e-Cigarette/Vaping Use Never Used 09/09/24 09:49 PHQ-9: PHQ-9 Score PHQ-9: Total score 3 09/09/24 09:39 Thrive Assessment: Date of Thrive Assessment Date Thrive assessed 09/09/24 09/09/24 09:22 Currently or been in a relationship where the following occur: No concerns reported Const General: No confusion Orientation/consciousness: No confusion HENMT Head: Yes normocephalic Ears: external ears normal and TM's normal bilaterally Face and sinus: Yes normal facial exam Mouth: moist mucous membranes Throat: Yes tonsils normal Eyes Conjunctivae: conjunctivae normal Pupils: Equal, round and reactive pupils present and Pupil accommodation reflex normal Direct Ophthalmoscopy: normal light reflex Neck Neck: No lymphadenopathy Thyroid: Thyroid normal Chest Chest palpation & inspection: normal inspection of the chest Resp Effort & Inspection: normal respiratory effort and no audible wheezes Auscultation: clear to auscultation bilaterally, no crackles, no wheezes and lung sounds not diminished Cardio Rate: regular rate Rhythm: regular rhythm Peripheral pulses: radial pulses present and dorsalis pedis present GI Palpation (GI): no masses Auscultation: normal bowel sounds and normoactive bowel sounds Rectal Exam - Female: deferred Skin General skin exam: no rashes or lesions noted Rashes: no rashes Neuro General: No confusion Cranial nerves: Yes Equal, round and reactive pupils present and Yes Normal hearing present Cognition (Neuro): normal cognition Gait exam (Neuro): Normal gait present Motor exam (neuro): 5/5 motor strength present throughout Deep tendon reflexes (DTR's): Right brachioradialis reflex intensity grade: 2+, Left brachioradialis reflex intensity grade: 2+, Right patellar reflex intensity grade: 2+ and Left patellar reflex intensity grade: 2+ Extrem General: No edema Coding Level of Care Code Est Pt Prev Care >65y(18366) Diagnoses Annual physical exam Z00.00 Coronary artery disease involving [place] coronary artery of [place] heart without angina pectoris I25.10 Associated angina: without angina Coronary Disease-Associated Artery/Lesion type: [place] artery [place] vs. transplanted heart: [place] heart Pure hypercholesterolemia E78.00 Hyperlipidemia type: pure hypercholesterolemia Essential hypertension I10 Hypertension type: essential hypertension Generalized anxiety disorder F41.1 Gastroesophageal reflux disease without esophagitis K21.9 Esophagitis presence: without esophagitis Paroxysmal atrial fibrillation I48.0 Renal insufficiency N28.9 Upper back pain M54.9 Assessment & Plan Assessment & Plan (1) Annual physical exam: Code(s): Z00.00 - Encounter for general adult medical examination without abnormal findings Category: Medical (2) CAD (coronary artery disease): Comment: July 2018 PCI LUPE RCA echo EF 60-65% grade 1 diastolic dysfunction, nuclear stress test normal February 2020 Code(s): I25.10 - Atherosclerotic heart disease of [place] coronary artery without angina pectoris Category: Medical Qualifiers: Associated angina: without angina Coronary Disease-Associated Artery/Lesion type: [place] artery [place] vs. transplanted heart: [place] heart Qualified Code(s): I25.10 - Atherosclerotic heart disease of [place] coronary artery without angina pectoris (3) HLD (hyperlipidemia): Code(s): E78.5 - Hyperlipidemia, unspecified Category: Medical Qualifiers: Hyperlipidemia type: pure hypercholesterolemia Qualified Code(s): E78.00 - Pure hypercholesterolemia, unspecified (4) HTN (hypertension): Code(s): I10 - Essential (primary) hypertension Category: Medical Qualifiers: Hypertension type: essential hypertension Qualified Code(s): I10 - Essential (primary) hypertension (5) Generalized anxiety disorder: Code(s): F41.1 - Generalized anxiety disorder Category: Medical (6) GERD (gastroesophageal reflux disease): Comment: Very pleasant, Well-controlled GERD-dietary modifications lifestyle with very good response Code(s): K21.9 - Gastro-esophageal reflux disease without esophagitis Category: Medical Qualifiers: Esophagitis presence: without esophagitis Qualified Code(s): K21.9 - Gastro-esophageal reflux disease without esophagitis (7) Paroxysmal atrial fibrillation: Code(s): I48.0 - Paroxysmal atrial fibrillation Category: Medical Plan: Patient has not been found no afib. only SVT (8) Renal insufficiency: Code(s): N28.9 - Disorder of kidney and ureter, unspecified Category: Medical (9) Upper back pain: Code(s): M54.9 - Dorsalgia, unspecified Category: Medical Plan Labs: - Blood work in August 2024: Normal blood counts, serum creatinine of 1.37, electrolytes within normal limits, vitamin B12, vitamin D, and folic acid normal, thyroid function normal. - For COPD: Reconsideration of inhaler medication due to undesirable side effects. - Essential Hypertension: Adjust metoprolol to 50 mg/day, monitor blood pressure closely. - Hypercholesterolemia: Continue current lipid-lowering therapy, Repatha and rosuvastatin. - GERD: Continuation of omeprazole therapy with monitoring of symptoms. - Paroxysmal Atrial Fibrillation: Monitor for symptoms and follow up with cardiology as needed. - Back Pain: Initiate physical therapy and prescribe muscle relaxants as needed. - Tachycardia: Further evaluation to discern episodes of SVT, review with cardiology suggested. I discussed with the patient the importance of continued monitoring of her various chronic conditions, particularly emphasizing the need for regular blood pressure and renal function assessments. The patient's hypertensive and hypercholesterolemia management remains effective, though adjustments to blood pressure medication have been made to accommodate current readings. We reviewed potential risks related to Sudafed use and emphasized caution with [id number] medications like Advil, which can impact renal function. The musculoskeletal complaints were determined to be muscular in origin, with physical therapy and muscle relaxants prescribed as the primary management strategy. We also discussed the forthcoming mammogram and ongoing surveillance with periodic colonoscopy and bone density exams. I reminded the patient about avoiding triggers for her GERD and COPD exacerbations. - Adjust metoprolol to 50 mg daily and monitor your blood pressure. - Continue current medications as prescribed. - Stay hydrated and monitor for any symptoms of abdominal discomfort or respiratory difficulty. - Avoid using Advil or similar anti-inflammatory medications unless otherwise directed. - Engage in physical therapy exercises as instructed to alleviate back pain. - Report any new or worsening symptoms, particularly concerning heart rate or breathing difficulties. - Follow up in three months or sooner if any new issues arise. Orders: Orders PT Evaluation and Treatment Today M54.9 - Dorsalgia, unspecified XR thoracic spine 2V Today M54.9 - Dorsalgia, unspecified Medications: New cyclobenzaprine 5 mg PO TID PRN 30 tabs 0RF muscle spasm M54.9 - Dorsalgia, unspecified Changed From metoprolol succinate ER 100 mg PO DAILY 90 days 90 tabs 3RF I10 - Essential (primary) hypertension, I47.1 - Supraventricular tachycardia To metoprolol succinate ER 50 mg PO DAILY 90 tabs 3RF 90 days I10 - Essential (primary) hypertension, I47.1 - Supraventricular tachycardia Refilled losartan 100 mg PO DAILY 90 tabs 3RF I10 - Essential (primary) hypertension
== END 2024-09-09 10:18 | disposition home or self-care (01) ==
PROVIDERS: PCP Internal Medicine; Visit Provider Internal Medicine
DX: Z00.00 Encounter for general adult medical examination without abnormal findings (principal); I48.0 Paroxysmal atrial fibrillation; I25.10 Atherosclerotic heart disease of native coronary artery without angina pectoris; E78.00 Pure hypercholesterolemia, unspecified; I10 Essential (primary) hypertension; F41.1 Generalized anxiety disorder; K21.9 Gastro-esophageal reflux disease without esophagitis; N28.9 Disorder of kidney and ureter, unspecified; M54.9 Dorsalgia, unspecified

== ENCOUNTER → 2024-09-09 08:46 | Outpatient (BNVA) | payer MEDICARE, OTHER, SELFPAY | PROVIDERS: PCP Internal Medicine; Visit Provider Internal Medicine | DX: Z00.00 Encounter for general adult medical examination without abnormal findings (principal); I25.10 Atherosclerotic heart disease of native coronary artery without angina pectoris; E78.00 Pure hypercholesterolemia, unspecified; I10 Essential (primary) hypertension; F41.1 Generalized anxiety disorder; K21.9 Gastro-esophageal reflux disease without esophagitis; I48.0 Paroxysmal atrial fibrillation; N28.9 Disorder of kidney and ureter, unspecified; M54.9 Dorsalgia, unspecified | CPT/HCPCS: 99397 ==

== ENCOUNTER 2024-09-15 07:57 | Outpatient (AMB) | payer MEDICARE, OTHER, SELFPAY ==
[2024-09-15 08:08] VITALS: BP 122/60; PULSE 55; BMI 28.7
--- NOTE | 2024-09-15 08:08 | MHC.OFFVIS ---
Vital Signs 09/15/24 08:08 Height 5 ft 7 in Weight 182 lb 15.739 oz BMI 28.7 BP 122/60 Blood Pressure Location Lt brachial Position Sitting Pulse 55 Pulse Source Monitor Intake Visit Reasons: 1 year fu (NS) Bender Hand Required: No Allergies bee pollen [bee stings] Allergy (Severe, Verified 09/15/24 08:10) Anaphylaxis lisinopril [LISINOPRIL] Adverse Reaction (Intermediate, Verified 09/15/24 08:10) COUGH Ynbjtbm-ARB-TuP Reductase Inhibitor [NIJVKGA-SVA-RFY REDUCTASE INHIBITOR] Adverse Reaction (Intermediate, Verified 09/15/24 08:10) MUSCLE ACHES ticagrelor [Brilinta] Adverse Reaction (Intermediate, Verified 09/15/24 08:10) Shortness of Breath Medication List - Last Reconciled 09/15/24 by NAIN Lay albuterol sulfate 90 mcg/actuation 1 inh inhalation QID PRN 30 days alprazolam 0.5 mg PO BID PRN 30 days aspirin (Adult Low Dose Aspirin) 81 mg PO DAILY cetirizine 10 mg PO DAILY PRN cholecalciferol (vitamin D3) 50 mcg PO DAILY coenzyme Q10 (CoQ-10) 100 mg PO DAILY cyclobenzaprine 5 mg PO TID PRN epinephrine (EpiPen 2-Jc) 0.3 mg (0.3 mL) IM Q4H PRN evolocumab (Repatha SureClick) 140 mg subcut Q2W hydrochlorothiazide 12.5 mg PO QAM lactobacillus combo no.11 (Probiotic) 1 cap PO DAILY losartan 100 mg PO DAILY metoprolol succinate ER 50 mg PO DAILY 90 days multivitamin (Daily Multi-Vitamin tablet) 1 tab PO DAILY nitroglycerin 0.4 mg sublingual PER PKG DIR PRN omeprazole 20 mg PO QAM rosuvastatin 20 mg PO DAILY simethicone (Gas Relief (simethicone)) 125 mg PO BID-QID PRN HPI HPI 1 year fu (NS): Details: Kiera is a 74-year-old female past medical history of hypertension, hyperlipidemia, frequent PACs and short SVT runs, CAD with RCA stent who presents for follow-up. Today she reports that she has been feeling well since her last visit in February. She has not had any recent chest discomfort at rest or with activity. She does have some shortness of breath with exertion but relates it to bronchitis and COVID over the last few months. She has no PND, orthopnea or edema. No lightheadedness, presyncope, syncope. She does feel some heart palpitations, overall less than prior. Compliant with meds. [facility] Medical History Cataract Postmenopausal History of COVID-19 Thoracic back pain Dyspnea on exertion Former smoker, stopped smoking in distant past Right lower quadrant abdominal pain Paroxysmal atrial fibrillation HLD (hyperlipidemia) HTN (hypertension) PVD (peripheral vascular disease) CAD (coronary artery disease) Surgical History History of lung surgery (~2022) History of esophagogastroduodenoscopy (EGD) (~2020) History of breast biopsy (~1996) History of colonoscopy (~2020) History of cardiac cath (~2019) History of cholecystectomy (~2018) Stented coronary artery (~2017) Family History Father Sudden cardiac CVD (cardiovascular disease) Mother Stroke HTN (hypertension) Myocardial infarction Social History Household Members: Spouse Housing: House Are you a primary caretaker to a significant other at home: No Do you presently have visiting nurse or other home services: No Alcohol intake: current Alcohol intake frequency: holidays/special occasions only Alcohol type: wine Comment: 2 days of the week 2 glasses, last drink [facility]2023 Patient Tobacco Use Status: Former Tobacco user Tobacco use type: Cigarette Years Smoked: quit 1983 e-Cigarette/Vaping Use: Never Used Second Hand Smoke Exposure: No service: No Current occupational status: retired Cognitive needs: No Hearing needs: No Vision needs: Yes Review of Systems Const All systems reviewed & are unremarkable except as noted in HPI and below ENT Denies dizziness Card Denies chest pain, Denies chest pain at rest, Denies chest pain with activity, Denies rapid heart rate, Denies pedal edema, Denies edema, Denies leg edema, Denies lightheadedness, Denies palpitations, Denies dyspnea, Reports dyspnea on exertion and Denies orthopnea Resp Denies cough, Denies dyspnea and Reports dyspnea on exertion GI Denies hematochezia and Denies change in stool character Musc Denies abnormal gait, Denies limited range of motion, Denies muscle cramps, Denies muscle weakness, Denies numbness, Denies radiating pain into limb, Denies stiffness and Denies tingling Neuro Denies abnormal gait, Denies dizziness, Denies numbness and Denies tingling Endo Denies palpitations Physical Exam Vital Signs: Last Vital Signs Pulse 55 09/15/24 08:08 BP 122/60 09/15/24 08:08 BMI result Body Mass Index 28.7 Const General: cooperative, healthy appearing, comfortable and no acute distress Orientation/consciousness: patient oriented x3 Neck Neck: Yes normal visual inspection and Yes no JVD Carotids: normal carotid upstroke Resp Effort & Inspection: normal respiratory effort Auscultation: clear to auscultation bilaterally, no crackles, no rales, no rhonchi and no wheezes Cardio Jugular venous distension: no JVD Rate: regular rate Rhythm: regular rhythm Heart sounds: S1 normal heart sound present, S2 normal heart sound present, no murmurs and no rubs Neuro General: patient oriented x3 Extrem General: Yes normal to inspection, No no pedal edema and No calf tenderness Psych Appearance: grossly normal Mental Status: mental status grossly normal Speech and movement: Normal speech and movement present Office Procedures EKG Details: Today, read by meGENEVIEVE with marked SA, rate 55, QTc 390ms [id number], Complete Assessment & Plan Assessment & Plan (1) PAC (premature atrial contraction): Code(s): I49.1 - Atrial premature depolarization Category: Medical Plan: Known history of frequent PACs. Holter monitor done 08/09/2023 showing sinus rhythm with average heart rate 59 beats per minute, frequent PACs 21% of the time with rare ventricular ectopy. Last echo done 05/23/2023 showing EF 60%, no valve abnormalities and no regional wall motion abnormalities. Labs done 08/28/2024 showed TSH 3.89. At this time she does feel some heart palpitations but less than prior. EKG done today showing sinus bradycardia with sinus arrhythmia, rate 55. Continue metoprolol XL 50 mg daily. Reviewed stress reduction activities, good hydration, good sleep patterns, physical activity as tolerated. Cardiology follow-up 6 months, sooner if needed (2) SVT (supraventricular tachycardia): Code(s): I47.1 - Supraventricular tachycardia Category: Medical Plan: Prior Holter monitor showed short runs of NSVT. Most Holter does not show this but does show frequent PACs. No definitive atrial dilation. Continue metoprolol. (3) Palpitations: Code(s): R00.2 - Palpitations Category: Medical Plan: As above (4) CAD (coronary artery disease): Comment: July 2018 PCI LUPE RCA echo EF 60-65% grade 1 diastolic dysfunction, nuclear stress test normal February 2020 Code(s): I25.10 - Atherosclerotic heart disease of [place] coronary artery without angina pectoris Category: Medical Qualifiers: Associated angina: without angina Coronary Disease-Associated Artery/Lesion type: [place] artery [place] vs. transplanted heart: [place] heart Qualified Code(s): I25.10 - Atherosclerotic heart disease of [place] coronary artery without angina pectoris Plan: History of CAD with RCA stent 2017. No reports of anginal symptoms. Continue current management for stable CAD including aspirin indefinitely. Continue metoprolol. Continue rosuvastatin with LDL goal less than 70. She is also on Praluent. Labs done 08/28/2024 showed LDL 40, AST 30, ALT 20. Signs and symptoms of angina reviewed with her. (5) HTN (hypertension): Code(s): I10 - Essential (primary) hypertension Category: Medical Qualifiers: Hypertension type: essential hypertension Qualified Code(s): I10 - Essential (primary) hypertension Plan: Blood pressure controlled at present. No medication changes made. Continue losartan, metoprolol, hydrochlorothiazide. Labs done 08/28/2024 shows potassium 4, creatinine 1.37. Plan Time spent on chart review, documentation, interview and assessment Coding Level of Care Code Est Pt Level 4 (54366) Complex EM visit Add On G2211 Diagnoses PAC (premature atrial contraction) I49.1 SVT (supraventricular tachycardia) I47.1 Palpitations R00.2 Coronary artery disease involving [place] coronary artery of [place] heart without angina pectoris I25.10 Associated angina: without angina Coronary Disease-Associated Artery/Lesion type: [place] artery [place] vs. transplanted heart: [place] heart Essential hypertension I10 Hypertension type: essential hypertension CPT Codes EKG - CPT: 45112-[id number], Complete ([id number]) Time Spent (min) 28
== END 2024-09-15 08:31 | disposition home or self-care (01) ==
PROVIDERS: PCP Internal Medicine; Visit Provider Nurse Practitioner Family
DX: I49.1 Atrial premature depolarization (principal); I47.10 Supraventricular tachycardia, unspecified; R00.2 Palpitations; I25.10 Atherosclerotic heart disease of native coronary artery without angina pectoris; I10 Essential (primary) hypertension
CPT/HCPCS: 93010; 99214; G2211

== ENCOUNTER → 2024-09-15 07:57 | Outpatient (BNVA) | payer MEDICARE, OTHER, SELFPAY | PROVIDERS: PCP Internal Medicine; Visit Provider Nurse Practitioner Family | DX: I49.1 Atrial premature depolarization (principal); I47.10 Supraventricular tachycardia, unspecified; I25.10 Atherosclerotic heart disease of native coronary artery without angina pectoris; I10 Essential (primary) hypertension; R00.2 Palpitations; R00.1 Bradycardia, unspecified | CPT/HCPCS: 93005; 99212 ==

== ENCOUNTER 2024-09-18 09:47 | Outpatient (REF) | payer MEDICARE, OTHER, SELFPAY ==
--- NOTE | ~2024-09-18 | XR_ITS ---
EXAMINATION: XR THORACIC SPINE CLINICAL INFORMATION: M54.9 - Dorsalgia, unspecified COMPARISON: 08/19/2011. TECHNIQUE: 3 views of the thoracic spine were obtained. FINDINGS: There is normal bony mineralization. There is a minimal right convex scoliosis, apex at T8. There is a normal kyphosis. There is no subluxation or malalignment. No fracture, compression deformity, or suspicious bone lesion. Moderate degenerative disc changes throughout the thoracic spine. Mild associated multilevel degenerative facet changes. Mild sclerosis of the endplates T8-9 and T9-10. There are a few scattered Schmorl's nodes present. The remainder of the imaged lungs, mediastinum, and paravertebral soft tissues appear normal. There are mild vascular calcifications. XR/XR thoracic spine 2V IMPRESSION: 1. No acute bony abnormalities. 2. Minimal right convex scoliosis, and mild to moderate degenerative spondylosis. Electronically signed by: Zurdo Barker MD 09/18/2024 10:19 AM GARETT BARRAZA
--- OUTSIDE RECORDS SUMMARY | 2024-09-18 10:20 | XMS_ITS | Clinical Summary ---
Author Organization [facility] ity Address [id number] [place] [id number] Care Team Providers Care Resource Paraprofessional Name Role Phone Esvin Basilio MD Primary Care Provider Social History Tobacco Use Types Packs/Day Years Used Date Smoking Tobacco: Former Smokeless Tobacco: Never Comments Unknown Sex and Gender Information Value Date Recorded Sex Assigned at Not on file Legal Sex Female 4:04 PM EST Gender Identity Not on file Sexual Orientation [...] DTaP,Tdap,and Td Vaccines (1 - Tdap) 1970 Pneumococcal Vaccine: 50+ Ye ars (1 of 1 - PCV) 2001 Zoster Vaccines (1 of 2) 2001 Colorectal Cancer Screening: Colonoscopy 09/04/2023 Depression Screening [...] patient's age to complete this topic Meningococcal B Vacine Aged Out No lo nger eligible based on patient's age to complete this topic RSV Immunization Patients Un john 20 months Aged Out No longer eligible b ased on patient's age to complete this topic Varicella Vaccines Aged Out No longer eligible based on patient's age to complete this topic Care Teams Resource Paraprofessional Relationship Specialty Start Date End Date Esvin Basilio MD [address] [place] [address] Dr [address] [facility] [place] [address] PCP - General Internal Medicine 06/11/18
== END 2024-09-18 09:48 | disposition home or self-care (01) ==
LOC: HO.XRAY 09:47
PROVIDERS: PCP Internal Medicine; Visit Provider Internal Medicine
DX: M54.9 Dorsalgia, unspecified (principal)
CPT/HCPCS: 72070

== ENCOUNTER → 2024-09-18 09:51 | Outpatient (BNV) | payer MEDICARE, OTHER, SELFPAY | PROVIDERS: PCP Internal Medicine; Visit Provider Radiology Diagnostic Radiology | DX: M47.814 Spondylosis without myelopathy or radiculopathy, thoracic region (principal) | CPT/HCPCS: 72070 ==

== ENCOUNTER 2024-10-29 07:50 | Outpatient (RCR) | payer MEDICARE, OTHER, SELFPAY ==
--- NOTE | 2024-10-03 16:57 | MHC.PT.EP ---
[facility] [place] Office [place] Office [place] Office [address] [phone] F: [phone] F: [phone] F: [phone] F: [phone] Physical Therapy Plan of Care Date of Evaluation: 10/03/24 Date of Surgery: Diagnosis: Dorsalgia. Assessment: Pt is a 74 y/o female referred to PT for eval and treat of dorsalgia which is resulting in decreased tolerance for standing and walking for duration, performing heavy HH chores, lifting objects of weight secondary to increased kyphotic posture, increased HS and lumbar flexion tightness, mild to moderate degenerative spondylosis noted on imaging, decreased scapular strength and posture, as well as pain with activity. Pt is deemed an appropriate candidate to receive skilled PT services to address their physical impairments in order to improve their functional ability. Frequency and Duration: The patient will be seen 2 x/ wk x 4 wks. Short Term Goals: initiate home program. Improve baseline pain to < 6/10 with activity; initial: 9/10. Inbound Telemarketer Goals: I with home program. Pt will be able to walk long distances with managed pain. Pt will improve Connie by at least 9 points. Pt will improve core strength by at least 1/2 MMT grade. Treatment Plan: Modalities to reduce pain, spasms and effusion. Manual therapy to restore motion and function. Therapeutic exercise to improve strength and flexibility. Neuromuscular re-education for posture and balance. Therapeutic activities to return to functional activities of daily living. Electronically signed by: Moses Hsieh PT. Please sign and return to therapist. Thank you for your referral.
--- NOTE | 2024-10-29 09:09 | MHC.PT.DC ---
[facility] [place] Office [place] Office [place] Office [address] [phone] F: [phone] F: [phone] F: [phone] F: [phone] Physical Therapy Discharge Report Diagnosis: Dorsalgia. Date of Surgery: Date of Evaluation: 10/03/24 Date of Discharge: 10/29/24 Treatments to Date: 8 Cancellations to Date: No Shows to Date: Discharge Status: Improved Function Independent with HEP Discharge Summary: Kiera has been an active participant in her therapy in and out of the clinic, she has met most of her therapeutic goals, is I with her home program, and is in agreement with DC at this time. Electronically signed by: Moses Hsieh PT. Please sign and return to therapist. Thank you for your referral.
== END 2024-10-29 09:10 | disposition home or self-care (01) ==
LOC: HO.PT 07:50
PROVIDERS: PCP Internal Medicine; Visit Provider Internal Medicine
DX: M54.6 Pain in thoracic spine (principal)
CPT/HCPCS: 97110; 97140; 97161

== ENCOUNTER 2024-11-03 10:44 | Outpatient (AMB) | payer MEDICARE, OTHER, SELFPAY ==
[2024-11-03 10:54] VITALS: BP 128/66; PULSE 76; O2SAT 99; BMI 28.1
--- NOTE | 2024-11-03 10:54 | MHC.OFFVIS ---
Vital Signs 11/03/24 10:54 Height 5 ft 7 in Weight 179 lb 10.828 oz BMI 28.1 BP 128/66 Blood Pressure Location Rt brachial Position Sitting Pulse 76 Pulse Source Pulse Oximeter Pulse Oximetry (%) 99 Oxygen Delivery Method Room Air Intake Visit Reasons: emphysema Block Paver Required: No Dictating Machine Typist: Dictating Machine Typist offered & declined Accompanied by: Self / Same As Patient Allergies bee pollen [bee stings] Allergy (Severe, Verified 11/03/24 10:56) Anaphylaxis lisinopril [LISINOPRIL] Adverse Reaction (Intermediate, Verified 11/03/24 10:56) COUGH Tqvsyir-QZV-VhX Reductase Inhibitor [OWZIHBB-JAO-FTL REDUCTASE INHIBITOR] Adverse Reaction (Intermediate, Verified 11/03/24 10:56) MUSCLE ACHES ticagrelor [Brilinta] Adverse Reaction (Intermediate, Verified 11/03/24 10:56) Shortness of Breath Medication List - Last Reconciled 11/03/24 by Linsey Moreno LPN albuterol sulfate 90 mcg/actuation 1 inh inhalation QID PRN 30 days alprazolam 0.5 mg PO BID PRN 30 days aspirin (Adult Low Dose Aspirin) 81 mg PO DAILY cetirizine 10 mg PO DAILY PRN cholecalciferol (vitamin D3) 50 mcg PO DAILY coenzyme Q10 (CoQ-10) 100 mg PO DAILY cyclobenzaprine 5 mg PO TID PRN epinephrine (EpiPen 2-Jc) 0.3 mg (0.3 mL) IM Q4H PRN evolocumab (Repatha SureClick) 140 mg subcut Q2W hydrochlorothiazide 12.5 mg PO QAM lactobacillus combo no.11 (Probiotic) 1 cap PO DAILY losartan 100 mg PO DAILY metoprolol succinate ER 50 mg PO DAILY 90 days multivitamin (Daily Multi-Vitamin tablet) 1 tab PO DAILY nitroglycerin 0.4 mg sublingual PER PKG DIR PRN omeprazole 20 mg PO QAM rosuvastatin 20 mg PO DAILY simethicone (Gas Relief (simethicone)) 125 mg PO BID-QID PRN HPI HPI emphysema: Details: Kiera is a pleasant 74-year-old female, former 30 pack-year smoker, quit 30+ years prior, with underlying hypertension, hyperlipidemia, paroxsymal atrial fibrillation, CAD with RCA stent, and s/p RML wedge resection and mediastinal lymphadenectomy on 09/06/[address] Soliz, negative for malignancy. She was previously under the care of Dr. Guthrie however lost to follow up and presents today to reestablish care. She reports ongoing productive cough with clear sputum, significant chest tightness and dyspnea on minimal exertion since May. At that time she was dx with bronchitis and treated with a zpak and prednisone. Initially had improvements in cough however no change in dyspnea and chest tightness. She was then reevaluated in the ED in July, again dx with bronchitis, treated with doxcycline as well as prednisone. Of note, since the time of onset of symptoms and now, patient did contract COVID19. She continues to report significant dyspnea, recovering quickly with rest and describes vice like tightness around chest. Recent CXR unremarkable. Prior PFT revealed decrease in diffusion capacity however no obstructive or restrictive defect. She has an albuterol MDI however uses infrequently. She expresses concerns with possible cardiac contribution, as she felt similar symptoms prior to discovering 90% occlusion of RCA. She has recently been evaluated by cardiology with no significant findings contributing to symptoms. She denies orthopnea, BLE edema or PND. [facility] Medical History Cataract Postmenopausal History of COVID-19 Thoracic back pain Dyspnea on exertion Former smoker, stopped smoking in distant past Right lower quadrant abdominal pain Paroxysmal atrial fibrillation HLD (hyperlipidemia) HTN (hypertension) PVD (peripheral vascular disease) CAD (coronary artery disease) Surgical History History of lung surgery (~2022) History of esophagogastroduodenoscopy (EGD) (~2020) History of breast biopsy (~1996) History of colonoscopy (~2020) History of cardiac cath (~2019) History of cholecystectomy (~2018) Stented coronary artery (~2017) Family History Father Sudden cardiac CVD (cardiovascular disease) Mother Stroke HTN (hypertension) Myocardial infarction Social History Household Members: Spouse Housing: House Are you a primary childbirth and infant care teacher to a significant other at home: No Do you presently have visiting nurse or other home services: No Alcohol intake: current Alcohol intake frequency: holidays/special occasions only Alcohol type: wine Comment: 2 days of the week 2 glasses, last drink 2023 Patient Tobacco Use Status: Former Tobacco user Tobacco use type: Cigarette Years Smoked: quit 1983 e-Cigarette/Vaping Use: Never Used Second Hand Smoke Exposure: No service: No Current occupational status: retired Cognitive needs: No Hearing needs: No Vision needs: Yes Review of Systems Const Denies chills, Denies excessive sweating, Denies fever(s), Denies headache(s) and Denies night sweats Eyes Denies dry eyes, Denies irritation and Denies itchy eyes ENT Reports Normal hearing present, Denies headache(s), Denies nasal congestion, Denies nasal discharge and Denies sore throat Card Denies chest pain, Denies chest pain at rest, Denies chest pain with activity, Denies claudication, Denies leg edema, Denies orthopnea and Denies paroxysmal nocturnal dyspnea Resp Denies chest congestion, Denies excessive phlegm production, Denies pain on inspiration, Denies pain with cough, Denies stridor and Denies wheezing Musc Denies myalgias Neuro Reports Normal hearing present and Denies headache(s) Endo Denies excessive sweating Thuan/Lymph Denies lymphadenopathy Aller/Immun Denies itchy eyes, Denies seasonal rhinorrhea and Denies wheezing Physical Exam Vital Signs: Last Vital Signs Pulse 76 11/03/24 10:54 BP 128/66 11/03/24 10:54 Pulse Ox 99 11/03/24 10:54 Oxygen Delivery Method Room Air 11/03/24 10:54 BMI result Body Mass Index 28.1 Const General: cooperative, healthy appearing, comfortable, no acute distress, well developed and alert Orientation/consciousness: patient oriented x3 Limitations: no limitations HEENT Head: Yes normal to inspection, Yes normocephalic and Yes atraumatic Ears: hearing grossly normal bilaterally and external ears normal Eyes General: appearance normal, both eyes and all related structures Eyelids: Yes eyelids normal Sclerae: sclerae normal EOM: EOMs intact bilaterally Neck Neck: Yes normal visual inspection and Yes no lymphadenopathy Lymphatic: no lymphadenopathy noted Chest Chest palpation & inspection: normal inspection of the chest Resp Effort & Inspection: normal respiratory effort, able to speak in complete sentences, no audible wheezes, no cough, no stridor, not tachypneic, no tripod positioning and no use of accessory muscles Auscultation: clear to auscultation bilaterally Cardio Jugular venous distension: no JVD Rate: regular rate Rhythm: regular rhythm Skin Other: warm, dry General skin exam: no rashes or lesions noted Neuro General: patient oriented x3 Cranial nerves: Yes Normal hearing present Cognition (Neuro): normal cognition Gait exam (Neuro): Normal gait present Extrem General: Yes normal to inspection, Yes capillary refill normal, Yes no clubbing, cyanosis or edema and Yes no pedal edema Psych Appearance: grossly normal and well kempt Speech and movement: Normal speech and movement present and Clear speech present Affect: normal affect Attitude: cooperative Thought process: Normal thought process present Thought content: Normal thought content present Insight: Good insight present (Psych) Judgement: Good judgement present (Psych) Assessment & Plan Assessment & Plan (1) Dyspnea: Code(s): R06.00 - Dyspnea, unspecified Category: Medical (2) Pulmonary nodule: Code(s): R91.1 - Solitary pulmonary nodule Category: Medical (3) Bronchiectasis: Code(s): J47.9 - Bronchiectasis, uncomplicated Category: Medical (4) Cough: Code(s): R05.9 - Cough, unspecified Category: Medical Plan Kiera presents for evaluation for ongoing dyspnea and chest tightness with intermittent chest congestion and productive cough with clear sputum. Recent CXR unremarkable. Encouraged use of bronchodilator to see if this will alleviate symptoms. Prior chest CT revealed mild bronchiectasis. Will repeat chest CT to evaluate for underlying infectious process given length of symptoms as well as evaluate stability of prior nodules, pt s/p RML wedge resection for 1 cm pulmonary nodule, negative for malignancy in 2022. Will also send for repeat PFT, last in 2021 which did not reveal obstructive or restrictive defect however did reveal decreased isolated diffusion capacity. All questions were answered and patient is in agreement of plan. Will follow up to review results or sooner if needed. Orders: Orders PFT pulmonary function test Today R06.00 - Dyspnea, unspecified CT chest wo IV con Today J47.9 - Bronchiectasis, uncomplicated, R05.9 - Cough, unspecified, R91.1 - Solitary pulmonary nodule Coding Level of Care Code New Pt Level 4 (45982) Diagnoses Dyspnea R06.00 Pulmonary nodule R91.1 Bronchiectasis J47.9 Cough R05.9
--- OUTSIDE RECORDS SUMMARY | 2024-11-03 12:08 | XMS_ITS | Clinical Summary ---
Author Organization [facility] ity Address [address] [place] [phone] Care Team Providers Care Forepart Reducer Name Role Phone Esvin Basilio MD Primary [...] age to complete this topic Care Teams Forepart Reducer Relationship Specialty Start Date End Date Esvin Basilio MD [address] [place] [address] [address] [facility] [place] [address] PCP - General Internal Medicine 06/11/18
== END 2024-11-03 11:21 | disposition home or self-care (01) ==
LOC: HO.HPS 10:45
PROVIDERS: PCP Internal Medicine; Visit Provider Nurse Practitioner Family
DX: R06.00 Dyspnea, unspecified (principal); R91.1 Solitary pulmonary nodule; J47.9 Bronchiectasis, uncomplicated; R05.9 Cough, unspecified
CPT/HCPCS: 99204

== ENCOUNTER → 2024-11-03 10:44 | Outpatient (BNVA) | payer MEDICARE, OTHER, SELFPAY | PROVIDERS: PCP Internal Medicine; Visit Provider Nurse Practitioner Family | DX: J47.9 Bronchiectasis, uncomplicated (principal); R91.1 Solitary pulmonary nodule; R06.00 Dyspnea, unspecified; R05.9 Cough, unspecified; I10 Essential (primary) hypertension; E78.5 Hyperlipidemia, unspecified; I48.0 Paroxysmal atrial fibrillation; I25.10 Atherosclerotic heart disease of native coronary artery without angina pectoris; Z87.891 Personal history of nicotine dependence | CPT/HCPCS: 99202 ==

== ENCOUNTER 2024-12-04 07:09 | Outpatient (REF) | payer MEDICARE, OTHER, SELFPAY ==
--- NOTE | ~2024-12-04 | CT_ITS ---
CLINICAL HISTORY: R05.9 - Cough, unspecified CT chest without contrast Comparison: 11/30/2022 Findings: The heart is normal size. There is coronary arterial calcification. The visualized thyroid and mediastinum are otherwise unremarkable. The lungs are clear. The upper abdomen is unremarkable. No acute fractures. IMPRESSION: 1. Unremarkable chest CT. This document has been electronically signed by: Demetris Olmstead MD on 12/05/2024 08:49:36
--- OUTSIDE RECORDS SUMMARY | 2024-12-04 07:12 | XMS_ITS | Clinical Summary ---
Author Organization [facility] ity Address [address] [place] [phone] Care Team Providers Care Inspection And Testing Supervisor Name Role Phone Esvin Basilio MD Primary Care Provider [phone] Social History Tobacco Use Types Packs/Day Years [...] - 2023-2 5 season) 2024 Influenza Vaccine (Season Ended) 2025 RSV Immunization Adult Patie nts (1 - 1-dose 75+ series) 2026 HIB [...] age to complete this topic Meningococcal B Vaccine Aged Out No l onger eligible based on patient's age to complete this topic RSV Immunization Patients Un john 20 months Aged Out No longer eligible b ased on patient's age to complete this topic Varicella Vaccines Aged Out No longer eligible based on patient's age to complete this topic Care Teams Inspection And Testing Supervisor Relationship Specialty Start Date End Date Esvin Basilio MD [address] [place] [address] [address] [facility] [place] [address] PCP - General Internal Medicine 06/11/18
[2024-12-04 08:30] LABS: Anion Gap 13 (12-20); Blood Urea Nitrogen 17 mg/dL (9-16); Calcium 9.4 mg/dL (8.4-10.2); Carbon Dioxide 26 mmol/L (22-29); Chloride 106 mmol/L (96-108); Estimated Glomerular Filt Rate > 60; Glucose Random 95 mg/dL (60-115); Potassium 3.9 mmol/L (3.3-5.1); Sodium 141 mmol/L (135-145)
== END 2024-12-04 07:10 | disposition home or self-care (01) ==
LOC: HO.CT 07:09
PROVIDERS: Absent Provider Internal Medicine; PCP Internal Medicine; Visit Provider Nurse Practitioner Family
DX: R91.1 Solitary pulmonary nodule (principal); J47.9 Bronchiectasis, uncomplicated; R05.9 Cough, unspecified; N28.9 Disorder of kidney and ureter, unspecified
CPT/HCPCS: 36415; 71250; 80048

== ENCOUNTER → 2024-12-04 07:11 | Outpatient (BNV) | payer MEDICARE, OTHER, SELFPAY | PROVIDERS: Absent Provider Internal Medicine; PCP Internal Medicine; Visit Provider Specialist | DX: R05.9 Cough, unspecified (principal) | CPT/HCPCS: 71250 ==

== ENCOUNTER 2024-12-18 08:12 | Outpatient (AMB) | payer MEDICARE, OTHER, SELFPAY ==
--- OUTSIDE RECORDS SUMMARY | 2024-12-18 08:16 | XMS_ITS | Clinical Summary ---
Author Organization [facility] ity Address [address] [place] [id number] Care Team Providers Care Child Care Leader Name Role Phone Esvin Basilio MD Primary Care Provider [phone] Social History Tobacco Use Types Packs/Day Years [...] age to complete this topic Care Teams Child Care Leader Relationship Specialty Start Date End Date Esvin Basilio MD [address] [place] [address] Dr [address] [facility] [place] [address] PCP - General Internal Medicine 06/11/18
[2024-12-18 08:20] VITALS: BP 124/62; PULSE 61; O2SAT 97; BMI 28.2
--- NOTE | 2024-12-18 08:20 | MHC.PC.OV ---
Vital Signs 12/18/24 08:20 Height 5 ft 7 in Weight 180 lb BMI 28.2 BP 124/62 Blood Pressure Location Lt brachial Position Sitting Pulse 61 Pulse Source Pulse Oximeter Pulse Oximetry (%) 97 Oxygen Delivery Method Room Air Intake Visit Reasons: upper back pain, renal insuf Allergies bee pollen [bee stings] Allergy (Severe, Verified 12/18/24 08:23) Anaphylaxis lisinopril [LISINOPRIL] Adverse Reaction (Intermediate, Verified 12/18/24 08:23) COUGH Pqraxwg-JXO-HoD Reductase Inhibitor [BWMUHIL-AAS-XAJ REDUCTASE INHIBITOR] Adverse Reaction (Intermediate, Verified 12/18/24 08:23) MUSCLE ACHES ticagrelor [Brilinta] Adverse Reaction (Intermediate, Verified 12/18/24 08:23) Shortness of Breath Medication List - Last Reconciled 12/18/24 by Esvin Basilio MD albuterol sulfate 90 mcg/actuation 1 inh inhalation QID PRN 30 days alprazolam 0.5 mg PO BID PRN 30 days aspirin (Adult Low Dose Aspirin) 81 mg PO DAILY cetirizine 10 mg PO DAILY PRN cholecalciferol (vitamin D3) 50 mcg PO DAILY coenzyme Q10 (CoQ-10) 100 mg PO DAILY epinephrine (EpiPen 2-Jc) 0.3 mg (0.3 mL) IM Q4H PRN evolocumab (Repatha SureClick) 140 mg subcut Q2W hydrochlorothiazide 12.5 mg PO QAM lactobacillus combo no.11 (Probiotic) 1 cap PO DAILY losartan 100 mg PO DAILY metoprolol succinate ER 50 mg PO DAILY 90 days multivitamin (Daily Multi-Vitamin tablet) 1 tab PO DAILY nitroglycerin 0.4 mg sublingual PER PKG DIR PRN omeprazole 20 mg PO QAM rosuvastatin 20 mg PO DAILY simethicone (Gas Relief (simethicone)) 125 mg PO BID-QID PRN Tobacco use date assessed: 09/09/24 Fall risk assessment: No Falls in past year Last assessed Fall Risk: 12/18/24 Dental Screening Dental Screen Date: 09/09/24 [facility] Medical History (Updated 12/18/24 @ 08:38 by Esvin Basilio MD) Paroxysmal atrial fibrillation Cataract Postmenopausal History of COVID-19 Thoracic back pain Dyspnea on exertion Former smoker, stopped smoking in distant past Right lower quadrant abdominal pain HLD (hyperlipidemia) HTN (hypertension) PVD (peripheral vascular disease) CAD (coronary artery disease) Surgical History History of lung surgery (~2022) History of esophagogastroduodenoscopy (EGD) (~2020) History of breast biopsy (~1996) History of colonoscopy (~2020) History of cardiac cath (~2019) History of cholecystectomy (~2018) Stented coronary artery (~2017) Family History Father Sudden cardiac CVD (cardiovascular disease) Mother Stroke HTN (hypertension) Myocardial infarction Social History Household Members: Spouse Housing: House Are you a primary healthcare economics manager to a significant other at home: No Do you presently have visiting nurse or other home services: No Alcohol intake: current Alcohol intake frequency: holidays/special occasions only Alcohol type: wine Comment: 2 days of the week 2 glasses, last drink [id number] Patient Tobacco Use Status: Former Tobacco user Tobacco use type: Cigarette Years Smoked: quit 1983 e-Cigarette/Vaping Use: Never Used Second Hand Smoke Exposure: No service: No Current occupational status: retired Cognitive needs: No Hearing needs: No Vision needs: Yes Questionnaire Thrive Questionnaire Date Thrive assessed: 09/02/24 I am a: Patient What is your living situation today?: I have a steady place to live Within the past 12 months, did the food you bought not last and you didn't have the money to get more?: Never true Within the past 12 months, did you worry whether your food would run out before you got money to buy more?: Never true Do you have trouble paying for medicines?: No Do you have trouble getting transportation to medical appointments?: No Do you have trouble paying your heating and electricity bill?: No Do you have trouble taking care of your child, family member or friend?: No Do you have trouble with day-to-day activities such as bathing, preparing meals, shopping, managing finances, etc.?: No Are you currently unemployed and looking for a job?: No Are you interested in more education?: No Please select the resources that you would like help with: None Currently or been in a relationship where the following occur: No concerns reported THRIVE Score: 0 TWILA-7 AMB Questionnaire TWILA-7 Date TWILA - 7 assessed: 09/09/24 Source: Developed by Drs. Harrison Mejia, Radha Koch, Huey Andrews and colleagues, with an educational donny from [employer]. Physical exam (Primary Care) Vital Signs: Last Vital Signs Pulse 61 12/18/24 08:20 BP 124/62 12/18/24 08:20 Pulse Ox 97 12/18/24 08:20 Oxygen Delivery Method Room Air 12/18/24 08:20 BMI result Body Mass Index 28.2 Tobacco/Smoking Status: Tobacco use Status Tobacco use date assessed 09/09/24 12/18/24 08:28 Patient Tobacco Use Status Former Tobacco user 12/18/24 08:28 Tobacco use type Cigarette 12/18/24 08:28 e-Cigarette/Vaping Use Never Used 12/18/24 08:28 Thrive Assessment: Date of Thrive Assessment Date Thrive assessed 09/02/24 12/18/24 08:28 Currently or been in a relationship where the following occur: No concerns reported Const General: alert; No acute distress Eyes Conjunctivae: conjunctivae normal Resp Auscultation: clear to auscultation bilaterally Cardio Rate: regular rate Rhythm: regular rhythm GI Inspection: Yes normal to inspection Extrem General: Yes normal to inspection and No edema Coding Level of Care Code Est Pt Level 4 (65980) Complex EM visit Add On G2211 Diagnoses Gastroesophageal reflux disease without esophagitis K21.9 Esophagitis presence: without esophagitis Emphysema lung J43.9 Coronary artery disease involving [place] coronary artery of [place]ul[place] heart without angina pectoris I25.10 Coronary Disease-Associated Artery/Lesion type: [place] artery [place] vs. transplanted heart: [place] heart Associated angina: without angina Essential hypertension I10 Hypertension type: essential hypertension Pure hypercholesterolemia E78.00 Hyperlipidemia type: pure hypercholesterolemia Generalized anxiety disorder F41.1 Assessment & Plan Assessment & Plan (1) GERD (gastroesophageal reflux disease): Comment: Very pleasant, Well-controlled GERD-dietary modifications lifestyle with very good response Code(s): K21.9 - Gastro-esophageal reflux disease without esophagitis Category: Medical Qualifiers: Esophagitis presence: without esophagitis Qualified Code(s): K21.9 - Gastro-esophageal reflux disease without esophagitis Plan: Avoid the foods that causes that usually spicy foods, tomato products, juices, coffee, soda and foods that your sensitive to. After eating do not lie down, allow 3-4 hours before in lie down. And keep the head of bed above 30 degrees to avoid the acid from going up. (2) Emphysema lung: Code(s): J43.9 - Emphysema, unspecified Category: Medical Plan: Patient is being followed up by Pulmonary has been placed on short-acting albuterol (3) CAD (coronary artery disease): Comment: July 2018 PCI LUPE RCA echo EF 60-65% grade 1 diastolic dysfunction, nuclear stress test normal February 2020 Code(s): I25.10 - Atherosclerotic heart disease of [place] coronary artery without angina pectoris Category: Medical Qualifiers: Coronary Disease-Associated Artery/Lesion type: [place] artery [place] vs. transplanted heart: [place] heart Associated angina: without angina Qualified Code(s): I25.10 - Atherosclerotic heart disease of [place] coronary artery without angina pectoris Plan: Control the cholesterol, weight, blood pressure, diabetes on aspirin 81 mg once a day (4) HTN (hypertension): Code(s): I10 - Essential (primary) hypertension Category: Medical Qualifiers: Hypertension type: essential hypertension Qualified Code(s): I10 - Essential (primary) hypertension Plan: Continue with blood pressure medication. Decrease salt intake and exercise patient is on metoprolol 50 mg once a day losartan 100 mg once a day hydrochlorothiazide 12.5 mg once a day (5) HLD (hyperlipidemia): Code(s): E78.5 - Hyperlipidemia, unspecified Category: Medical Qualifiers: Hyperlipidemia type: pure hypercholesterolemia Qualified Code(s): E78.00 - Pure hypercholesterolemia, unspecified Plan: Avoid fried foods, chicken skin, eggs, butter margarine, pastries and meat. Be it pork or beef they have a lot of cholesterol LDL goal of less than 70 and triglyceride of less than 150 patient on Praluent/Repatha and rosuvastatin (6) Generalized anxiety disorder: Code(s): F41.1 - Generalized anxiety disorder Category: Medical Plan: Continue with alprazolam as needed Plan History of Present Illness The patient is a 74-year-old female presenting with shortness of breath, particularly noticeable upon exertion. This symptom has been persistent, and the patient describes needing to take frequent breaks during activities throughout the day due to breathlessness. She reports a past medical history significant for cardiovascular and respiratory conditions, including hypertension, hypercholesterolemia, coronary artery disease, and COPD, with a previous diagnosis of emphysema. The patient?s recent cardiac evaluations have been largely negative, including a normal echocardiogram with an ejection fraction of 60% and no valve abnormalities, and no recent atrial fibrillation episodes confirmed. However, she expresses concerns following a previous stent placement in the RCA and anxiety potentially impacting her heart rate. Previously, the patient underwent a cardiac angiogram due to concerns over elevated BNP levels, which revealed a right-sided blockage. Despite normal outcomes in prior stress tests and scans, the persistent shortness of breath has led to continued concern about the sufficiency of oxygenation during exertion. Pulmonology evaluation identified a diagnosis of emphysema, and although a recent chest CAT scan returned negative, respiratory issues persist. Pulmonary Function Tests (PFT) previously demonstrated decreased diffusion capacity without evidence of obstructive or restrictive patterns. The patient expresses interest in re-evaluating lung function through PFT to elucidate any lung-related causes of her symptoms. Health Maintenance - Colonoscopy up to date as of 2020, with a 10-year recommendation. - Bone density testing normal in 2022. - Mammogram up to date as of April 2024. - Current on vaccinations: shingles, tetanus, and RSV. - Previous lab work in August shows LDL at 40, with renal function described as very good and normal thyroid, vitamin D, and folic acid levels. Social History - Engages in outdoor activities; however, her activity level is currently limited by shortness of breath. - Previously smoked but does not currently. - Takes allergy medication daily. - Nutrition consists of healthy green vegetables provided by own chickens. - Attempts to maintain hydration but limited by medication (water pill usage). Review of Systems - Cardiovascular: Reports episodes of rapid heart rate, especially post-exertion. - Respiratory: Reports persistent shortness of breath. - Musculoskeletal: Reports scoliosis with mild to moderate degenerative changes. - General: Denies current use of muscle relaxants; discontinued cyclobenzaprine. Physical Exam Results - Last echocardiogram (2022): 60% ejection fraction, no valve abnormalities. - Recent blood work (August): LDL at 40, normal renal function, normal thyroid, vitamin D, and folic acid. - Pulmonary Function Tests: Previously noted decreased diffusion capacity. - Recent CAT scan of the chest (December 2024): Negative. Plan The patient's ongoing shortness of breath warrants further analysis through repeat Pulmonary Function Tests to investigate any respiratory causes, especially in light of previously noted emphysematous changes and decreased diffusion capacity. Coordination with pulmonology will be crucial in evaluating lung function and determining any requisite interventions. Current cardiac medications will be maintained, considering stable recent echocardiographic findings and the patient's controlled LDL levels. Recommendations for maintaining a healthy lifestyle continue, including smoking cessation follow-through, asthma medication adherence, and addressing the anxiety component which may exacerbate symptoms. The decision to pursue any further cardiac evaluation will be guided by pulmonary findings and the outcome of PFTs. Patient was informed and verbally consented to the use of an ambient scribe for clinic note documentation during this visit. Discussion Notes I discussed with the patient the importance of repeating Pulmonary Function Tests to further understand the cause of her persistent shortness of breath, emphasizing the need to differentiate between cardiac and respiratory etiologies. We reviewed recent negative cardiac evaluations, which highlight the stability of her coronary artery disease and past interventions, and the low likelihood that current symptoms are cardiac in origin given her stable ejection fraction and LDL levels. We also explored previous pulmonology consultations confirming emphysema, underlying the need for close monitoring of her respiratory status. I reiterated the necessity of maintaining a low LDL via lifestyle and pharmaceutical management, considering her atherosclerosis. The patient was informed about the benefits and risks of ongoing medical therapy for cardiac and COPD management, and we agreed on pursuing pulmonary evaluations before considering further cardiac diagnostics. I advised her to maintain hydration, adhere to current medications, and continue daily activities balanced with breaks to manage her symptoms effectively. Patient Instructions - Follow instructions for the scheduled Pulmonary Function Test. - Continue using prescribed medications regularly, including those for cholesterol and anxiety. - Maintain regular physical activity with rest periods as needed. - Stay hydrated and avoid non-prescribed medications that can impact breathing. - Monitor for symptoms like increasing shortness of breath or chest pain. - Schedule follow-up appointments for ongoing management and evaluation of test results. - Consult the portal for any prescription refills needed. - Reach out for any sudden onset of severe symptoms or changes in health status.
== END 2024-12-18 08:53 | disposition home or self-care (01) ==
LOC: HO.HMCH 08:13
PROVIDERS: PCP Internal Medicine; Visit Provider Internal Medicine
DX: K21.9 Gastro-esophageal reflux disease without esophagitis (principal); J43.9 Emphysema, unspecified; I25.10 Atherosclerotic heart disease of native coronary artery without angina pectoris; I10 Essential (primary) hypertension; E78.00 Pure hypercholesterolemia, unspecified; F41.1 Generalized anxiety disorder

== ENCOUNTER → 2024-12-18 08:12 | Outpatient (BNVA) | payer MEDICARE, OTHER, SELFPAY | PROVIDERS: PCP Internal Medicine; Visit Provider Internal Medicine | DX: K21.9 Gastro-esophageal reflux disease without esophagitis (principal); J43.9 Emphysema, unspecified; I25.10 Atherosclerotic heart disease of native coronary artery without angina pectoris; I10 Essential (primary) hypertension; E78.00 Pure hypercholesterolemia, unspecified; F41.1 Generalized anxiety disorder | CPT/HCPCS: 99212 ==

== ENCOUNTER 2024-12-19 07:41 | Outpatient (REF) | payer MEDICARE, OTHER, SELFPAY ==
--- OUTSIDE RECORDS SUMMARY | 2024-12-19 07:42 | XMS_ITS | Clinical Summary ---
Author Organization [facility] ity Address [address] [place] [id number] Care Team Providers Care Global Supply Chain Vice President Name Role Phone Esvin Basilio MD Primary Care Provider [phone] Social History Tobacco Use Types Packs/Day Years [...] age to complete this topic Care Teams Global Supply Chain Vice President Relationship Specialty Start Date End Date Esvin Basilio MD [address] [place] [address] [address] [facility] [place] [address] PCP - General Internal Medicine 06/11/18
--- NOTE | 2024-12-19 07:50 | PFT_ITS ---
Spirometry [] Lung Volumes [] Diffusion Capacity [] Methacholine Challenge [] Flow Volume Loops [] MVV [] MIP/MEP(Max inspiratory pressure/Max expiratory pressure) [] 6 Minute Walk Test [] ABG [] Interpretation [] MTDD
[2024-12-19 08:31] VITALS: PULSE 52; O2SAT 98
== END 2024-12-19 07:42 | disposition home or self-care (01) ==
LOC: HO.RESP 07:41
PROVIDERS: PCP Internal Medicine; Visit Provider Nurse Practitioner Family
DX: R06.00 Dyspnea, unspecified (principal)
CPT/HCPCS: 94010; 94640; 94727; 94729

== ENCOUNTER → 2024-12-19 07:50 | Outpatient (BNV) | payer MEDICARE, OTHER, SELFPAY | PROVIDERS: PCP Internal Medicine; Visit Provider Internal Medicine Pulmonary Disease | DX: R06.00 Dyspnea, unspecified (principal) | CPT/HCPCS: 94060; 94727; 94729 ==

== ENCOUNTER → 2025-01-05 09:08 | Outpatient (BNVA) | payer MEDICARE, OTHER, SELFPAY | PROVIDERS: PCP Internal Medicine; Visit Provider Nurse Practitioner Family | DX: J47.9 Bronchiectasis, uncomplicated (principal); R06.00 Dyspnea, unspecified; R91.1 Solitary pulmonary nodule; Z87.891 Personal history of nicotine dependence | CPT/HCPCS: 99212 ==

== ENCOUNTER → 2025-01-05 09:08 | Outpatient (AMB) | payer MEDICARE, OTHER, SELFPAY ==
--- NOTE | 2025-01-05 09:12 | MHC.OFFVIS ---
Vital Signs 01/05/25 09:13 Height 5 ft 7 in Weight 182 lb 15.739 oz BMI 28.7 BP 108/70 Blood Pressure Location Rt brachial Position Sitting Pulse 50 Pulse Source Pulse Oximeter Pulse Oximetry (%) 98 Oxygen Delivery Method Room Air Intake Visit Reasons: emphysema Allergies bee pollen [bee stings] Allergy (Severe, Verified 01/05/25 09:16) Anaphylaxis lisinopril [LISINOPRIL] Adverse Reaction (Intermediate, Verified 01/05/25 09:16) COUGH Bfgwysk-YAM-WlI Reductase Inhibitor [BCFGNDK-SRV-IMR REDUCTASE INHIBITOR] Adverse Reaction (Intermediate, Verified 01/05/25 09:16) MUSCLE ACHES ticagrelor [Brilinta] Adverse Reaction (Intermediate, Verified 01/05/25 09:16) Shortness of Breath HPI HPI emphysema: Details: Kiera is a pleasant 74-year-old female, former 30 pack-year smoker, quit 30+ years prior, with underlying hypertension, hyperlipidemia, paroxsymal atrial fibrillation, CAD with RCA stent 2017, and s/p RML wedge resection and mediastinal lymphadenectomy on 09/06/[address] Soliz, negative for malignancy. She had resported worsening dyspnea and chest tightness after nury COVID however since the last visit, she reports overall improvements in dyspnea. Denies chest tightness, wheezing. Reports intermittent cough which she attributes to PND and seasonal allergies, well controlled with antihistamine and flonase. She was previously prescribed albuterol MDI however uses infrequently. Today she presents to review PFT and chest CT results. She denies any visits to urgent care or hospitalizations related to respiratory distress since the last visit. [facility] Medical History (Updated 12/18/24 @ 08:38 by Esvin Basilio MD) Paroxysmal atrial fibrillation Cataract Postmenopausal History of COVID-19 Thoracic back pain Dyspnea on exertion Former smoker, stopped smoking in distant past Right lower quadrant abdominal pain HLD (hyperlipidemia) HTN (hypertension) PVD (peripheral vascular disease) CAD (coronary artery disease) Surgical History History of lung surgery (~2022) History of esophagogastroduodenoscopy (EGD) (~2020) History of breast biopsy (~1996) History of colonoscopy (~2020) History of cardiac cath (~2019) History of cholecystectomy (~2018) Stented coronary artery (~2018) Family History Father Sudden cardiac CVD (cardiovascular disease) Mother Stroke HTN (hypertension) Myocardial infarction Social History Household Members: Spouse Housing: House Are you a primary critical care nurse specialist to a significant other at home: No Do you presently have visiting nurse or other home services: No Alcohol intake: current Alcohol intake frequency: holidays/special occasions only Alcohol type: wine Comment: 2 days of the week 2 glasses, last drink 2023 Patient Tobacco Use Status: Former Tobacco user Tobacco use type: Cigarette Years Smoked: quit 1983 e-Cigarette/Vaping Use: Never Used Second Hand Smoke Exposure: No service: No Current occupational status: retired Cognitive needs: No Hearing needs: No Vision needs: Yes Review of Systems Const Denies chills, Denies excessive sweating, Denies fever(s), Denies headache(s) and Denies night sweats Eyes Denies dry eyes, Denies irritation and Denies itchy eyes ENT Reports Normal hearing present, Denies headache(s), Denies nasal congestion, Denies nasal discharge, Reports post nasal drip and Denies sore throat Card Denies chest pain, Denies chest pain at rest, Denies chest pain with activity, Denies claudication, Denies leg edema, Reports dyspnea on exertion, Denies orthopnea and Denies paroxysmal nocturnal dyspnea Resp Denies change in phlegm color, Denies chest congestion, Denies cough, Denies hemoptysis, Denies excessive phlegm production, Denies pain on inspiration, Denies pain with cough, Reports dyspnea on exertion, Denies stridor and Denies wheezing Musc Denies myalgias Neuro Reports Normal hearing present and Denies headache(s) Endo Denies excessive sweating Thuan/Lymph Denies lymphadenopathy Aller/Immun Denies itchy eyes, Denies seasonal rhinorrhea and Denies wheezing Physical Exam Vital Signs: Last Vital Signs Pulse 50 01/05/25 09:13 BP 108/70 01/05/25 09:13 Pulse Ox 98 01/05/25 09:13 Oxygen Delivery Method Room Air 01/05/25 09:13 BMI result Body Mass Index 28.7 Const General: cooperative, healthy appearing, comfortable, no acute distress, well developed and alert Orientation/consciousness: patient oriented x3 Limitations: no limitations HEENT Head: Yes normal to inspection, Yes normocephalic and Yes atraumatic Ears: hearing grossly normal bilaterally and external ears normal Eyes General: appearance normal, both eyes and all related structures Eyelids: Yes eyelids normal Sclerae: sclerae normal EOM: EOMs intact bilaterally Neck Neck: Yes normal visual inspection and Yes no lymphadenopathy Lymphatic: no lymphadenopathy noted Chest Chest palpation & inspection: normal inspection of the chest Resp Effort & Inspection: normal respiratory effort, able to speak in complete sentences, no audible wheezes, no cough, no stridor, not tachypneic, no tripod positioning and no use of accessory muscles Auscultation: clear to auscultation bilaterally Cardio Jugular venous distension: no JVD Rate: regular rate Rhythm: regular rhythm Skin Other: warm, dry General skin exam: no rashes or lesions noted Neuro General: patient oriented x3 Cranial nerves: Yes Normal hearing present Cognition (Neuro): normal cognition Gait exam (Neuro): Normal gait present Extrem General: Yes normal to inspection, Yes capillary refill normal, Yes no clubbing, cyanosis or edema and Yes no pedal edema Psych Appearance: grossly normal and well kempt Speech and movement: Normal speech and movement present and Clear speech present Affect: normal affect Attitude: cooperative Thought process: Normal thought process present Thought content: Normal thought content present Insight: Good insight present (Psych) Judgement: Good judgement present (Psych) Results Reviewed Results Reviewed: [place] [address] CT Scan Report Signed Patient: Kiera Lopez MR#: [id number] : 1950 Acct:[id number] Age/Sex: 74 / F ADM Date: 12/04/24 Loc: HO.CT Attending Dr: Xena Molina NP Ordering Physician: Xena Molina NP Date of Service: 12/04/24 Procedure(s): CT chest wo IV con Accession Number(s): [id number] cc: Esvin Basilio MD; Xena Molina NP~ Report Number: [id number]: Total DLP = 296.00 mGy-cm CLINICAL HISTORY: R05.9 - Cough, unspecified CT chest without contrast Comparison: 11/30/2022 Findings: The heart is normal size. There is coronary arterial calcification. The visualized thyroid and mediastinum are otherwise unremarkable. The lungs are clear. The upper abdomen is unremarkable. No acute fractures. IMPRESSION: 1. Unremarkable chest CT. This document has been electronically signed by: Demetris Olmstead MD on 12/05/2024 08:49:36 Dictated By: Demetris Olmstead MD Signed By: <Electronically signed by Demetris Olmstead MD in OV> 12/05/2450 DD/ 8 TD/TT: 12/05/24848 Heat Regulator: Assessment & Plan Assessment & Plan (1) Dyspnea: Code(s): R06.00 - Dyspnea, unspecified Category: Medical (2) Pulmonary nodule: Code(s): R91.1 - Solitary pulmonary nodule Category: Medical (3) Bronchiectasis: Code(s): J47.9 - Bronchiectasis, uncomplicated Category: Medical (4) Cough: Code(s): R05.9 - Cough, unspecified Category: Medical Plan Reviewed chest CT which was unremarkable, there was note of coronary calcifications and patient requesting this information be passed on to cardiology, will notify. Reviewed PFT which revealed no obstructive or restrictive ventilatory defect. Bronchodilator response is present in small to medium airways only. Decreased expiratory reserve volume suggests extrathoracic restriction likely secondary to abdominal obesity. Decreased diffusion capacity suggests emphysema however no signs of emphysema on CT and signficantly improved since last PFT, previously 57% now 71%. Encouraged use of albuterol PRN. At this time, symptoms have improved and patient will continue to monitor. She is aware if symptoms change to call office. All questions were answered and patient is in agreement of plan. Will follow up PRN. Coding Level of Care Code Est Pt Level 4 (66304) Diagnoses Dyspnea R06.00 Pulmonary nodule R91.1 Bronchiectasis J47.9 Cough R05.9
[2025-01-05 09:13] VITALS: BP 108/70; PULSE 50; O2SAT 98; BMI 28.7
--- OUTSIDE RECORDS SUMMARY | 2025-01-05 09:44 | XMS_ITS | Patient Health Record ---
Author Organization [facility] Na[facility] [place] Address [address] [facility] [place] [address] Care Team Providers Care Nursing Home Admissions Director Name Role Phone Esvin Basilio Primary Care Provider Mike Munoz Unavailable [phone] Reason For Referral No Information Medications Medication SIG (Take, Route, Frequency, Duration) Notes Start Date End Date Status Famotidine 20 MG 1 tablet at bedtime Orally Once a day for 30 day(s) Active Multivitamin Active Rosuvastatin Calcium 10 MG 1 tablet Orally Once a day for 30 day(s) Active Baby Aspirin Active Metoprolol Succinate 100 MG 1 capsule Orally Once a day for 30 day(s) Active Atenolol 25 MG 1 tablet Orally Once a day for 30 day(s) Not-Taking Clopidogrel Bisulfate 75 MG 1 tablet Orally Once a day for 30 day(s) Active Piroxicam 20 MG 1 capsule with food Orally Once a day for 30 day(s) 02/01/2012 Not-Taking Losartan Potassium 50 MG 1 tablet Orally Once a day for 30 day(s) Active Claritin 5 MG 2 tablets Orally Onc e a day for 30 day(s) Not-Taking ZyrTEC Active Night Splint AFO - L1930 as directed 03/17/2019 Active Krill Oil Active Physical Therapy . . . 2-3x/week for 3- 4 weeks 03/17/2019 Active Vitamin B Complex Ac tive Social History Tobacco Use: Social History Observation Description Date Details (start date - stop date) Former Smoker NA - NA Tobacco Use/Smoking Question Answer Notes Are you a: former smoker Additional Findings: Tobacco Non-User Current no n-smoker Alcohol Screen Question Answer Notes Did you have a drink containing alcohol in the p ast year? Yes Points 0 Interpretation Negative Problems Problem Type SNOMED Code ICD Code Onset Dates Problem Status W/U Status Risk Notes Problem Hallux rigidus, right foot (M20.21) Active confirmed Plan Of Treatment Pending Test Test Name Order Date X ray : Foot, left 2V 01/11/2012 X ray : Foot, right 3V 03/17/201901286,[id number] TENDON SHEATH/LIGAMENT 0 03/17/201950155,[id number] TENDON SHEATH/LIGAMENT 0 01/11/201202795,[id number] TENDON SHEATH/LIGAMENT 0 02/01/201231307,[id number] TENDON SHEATH/LIGAMENT 1 Insurance Providers Payer Name Payer Address Payer Phone Subscriber Number Group Number Insured Name Patient Relationship to Insured Coverage Start Date Coverage End Date Medicare National Govt Svcs Inc [address] [place] [address] [id number] Kiera Lopez Self - patient is the insured 7 [employer]) [address] [place] [address] [id number] Kiera Lopez Self - patient is the insured Medical (General) History Medical History History ICD Code high blood pressure measles mumps chicken pox CAD (Cholesterol) Gall bladder problems Heart disease Reflux ( GERD) Vascular grafts Surgical History Surgery Date(Month/Year) breast biopsy Coronary artery stent 07/01/2018
== END ==
LOC: HO.HPS 09:09
PROVIDERS: PCP Internal Medicine; Visit Provider Nurse Practitioner Family
DX: R06.00 Dyspnea, unspecified (principal); R91.1 Solitary pulmonary nodule; J47.9 Bronchiectasis, uncomplicated; R05.9 Cough, unspecified
CPT/HCPCS: 99214

== ENCOUNTER 2025-01-20 12:04 | Outpatient (REF) | payer MEDICARE, OTHER, SELFPAY ==
--- OUTSIDE RECORDS SUMMARY | 2025-01-20 13:44 | XMS_ITS | Patient Health Record ---
Author Organization [facility] [place] Address [address] [facility] [place] [address] Care Team Providers Care Medical Malpractice Paralegal Name Role Phone Esvin Basilio Primary Care Provider Mike Munoz Unavailable [phone] Reason For Referral No Information Medications Medication [...] 01/11/2012 X ray : Foot, right 3V 03/17/201950684,[id number] TENDON SHEATH/LIGAMENT 0 03/17/201921070,[id number] TENDON SHEATH/LIGAMENT 0 01/11/201274698,[id number] TENDON SHEATH/LIGAMENT 0 02/01/201274310,[id number] TENDON SHEATH/LIGAMENT 1 Insurance Providers Payer Name Payer Address Payer Phone Subscriber Number Group Number Insured Name Patient Relationship to Insured Coverage Start Date Coverage End Date Medicare National Govt Svcs Inc [address] [place] [address] [id number] Kiera Lopez Self - patient is the insured 7 [employer]) [address] [place] [address] [id number] Kiera Lopez Self - patient is the insured Medical (General) History Medical History History ICD Code high blood pressure measles mumps chicken pox CAD (Cholesterol) Gall bladder problems Heart disease Reflux ( GERD) Vascular grafts Surgical History Surgery Date(Month/Year) breast biopsy Coronary artery stent 07/01/2018
[2025-01-21 23:54] LABS: Lyme Abs Screen <0.90 index
== END 2025-01-20 12:05 | disposition home or self-care (01) ==
LOC: HO.LAB 12:04
PROVIDERS: PCP Internal Medicine; Visit Provider Internal Medicine
DX: M25.50 Pain in unspecified joint (principal)
CPT/HCPCS: 36415; 86617; 86618

== ENCOUNTER 2025-03-16 08:08 | Outpatient (AMB) | payer MEDICARE, OTHER, SELFPAY ==
--- OUTSIDE RECORDS SUMMARY | 2025-03-16 08:21 | XMS_ITS | Patient Health Record ---
Author Organization [facility] [place] Address [address] [place] [address] Care Team Providers Care Ambulatory Nurse Name Role Phone Esvin Basilio Primary Care Provider Mike Munoz Unavailable [phone] Reason For Referral No Information Medications Medication SIG (Take, Route, Frequency, Duration) Notes Start Date End Date Status Famotidine 20 MG 1 tablet at bedtime Orally Once a day; Duration: 30 day(s) Active Multivitamin Active Rosuvastatin Calcium 10 MG 1 tablet Orally Once a day; Duration: 30 day(s) Active Baby Aspirin Active Metoprolol Succinate 100 MG 1 capsule Orally Once a day; Duration: 30 day(s) Active Atenolol 25 MG 1 tablet Orally Once a day; Duration: 30 day(s) Not-Taking Clopidogrel Bisulfate 75 MG 1 tablet Orally Once a day; Duration: 30 day(s) Active Piroxicam 20 MG 1 capsule with food Orally Once a day; Duration: 30 day(s) 02/01/2012 Not-Taking Losartan Potassium 50 MG 1 tablet Orally Once a day; Duration: 30 day(s) Active Claritin 5 MG 2 tablets Orally Onc e a day; Duration: 30 day(s) Not-Taking ZyrTEC Active Night Splint AFO - L1930 as directed 03/17/2019 Active Krill Oil Active Physical Therapy . . . 2-3x/week; Duration: 3-4 weeks 03/17/2019 Active Vitamin B Complex Ac [...] 01/11/2012 X ray : Foot, right 3V 03/17/201936551,[id number] TENDON SHEATH/LIGAMENT 0 03/17/201929915,[id number] TENDON SHEATH/LIGAMENT 0 01/11/201219450,[id number] TENDON SHEATH/LIGAMENT 0 02/01/2012,[id number]-GIP TENDON SHEATH/LIGAMENT 1 Insurance Providers Payer Name Payer Address Payer Phone Subscriber Number Group Number Insured Name Patient Relationship to Insured Coverage Start Date Coverage End Date Medicare National Govt Svcs Inc [address] [place] [address] [id number] Kiera Lopez Self - patient is the insured 7 [email or web address] [address] [place] [address] [id number] Kiera Lopez Self - patient is the insured Medical (General) History Medical History History ICD Code high blood pressure measles mumps chicken pox CAD (Cholesterol) Gall bladder problems Heart disease Reflux ( GERD) Vascular grafts Surgical History Surgery Date(Month/Year) breast biopsy Coronary artery stent 07/01/2018
--- OUTSIDE RECORDS SUMMARY | 2025-03-16 08:21 | XMS_ITS | Clinical Summary ---
Author Organization [facility] Address [address] [place] [address] Care Team Providers Care Stove Mounter Name Role Phone Esvin Basilio MD Primary Care Provider [phone] Social History Tobacco Use Types Packs/Day Years [...] 2) 2001 Colorectal Cancer Screening: Colonoscopy 09/04/2023 Falls Risk Assessment 09/04/2023 Hepatitis C Screening 09/04/2023 Osteoporosis Screening (Bone Density Screening) 09/04/2023 Social Influencers of Health Screening 09/04/2023 COVID-19 Vaccine (1 - 2023-2 5 season) 2024 Depression Screening 08/06/2024 Influenza Vaccine (#1) 2025 RSV Immunization Adult Patie nts (1 [...] age to complete this topic Care Teams Stove Mounter Relationship Specialty Start Date End Date Esvin Basilio MD [address] [place] [address] Dr [address] [facility] [place] [address] PCP - General Internal Medicine 06/11/18
--- NOTE | 2025-03-16 08:34 | MHC.OFFVIS ---
Vital Signs 03/16/25 08:36 Height 5 ft 7 in Weight 179 lb 0.246 oz BMI 28.0 BP 110/64 Blood Pressure Location Lt brachial Position Sitting Pulse 67 Pulse Source Pulse Oximeter Intake Visit Reasons: 6 month follow-up Intake Note: 6 mth f/up Biomedical Engineering Technician Required: No Accompanied by: Self / Same As Patient Allergies bee pollen (bee stings) Allergy (Severe, Verified 01/05/25 09:16) Anaphylaxis lisinopril (LISINOPRIL) Adverse Reaction (Intermediate, Verified 01/05/25 09:16) COUGH Mqfpive-IHW-SfW Reductase Inhibitor (ETLRHRF-NEN-DXK REDUCTASE INHIBITOR) Adverse Reaction (Intermediate, Verified 01/05/25 09:16) MUSCLE ACHES ticagrelor (Brilinta) Adverse Reaction (Intermediate, Verified 01/05/25 09:16) Shortness of Breath Medication List - Last Reconciled 03/16/25 by Shai Miles MD albuterol sulfate 90 mcg/actuation 1 inh inhalation QID PRN 30 days alprazolam 0.5 mg PO BID PRN 30 days aspirin (Adult Low Dose Aspirin) 81 mg PO DAILY cetirizine 10 mg PO DAILY cholecalciferol (vitamin D3) 50 mcg PO DAILY coenzyme Q10 (CoQ-10) 100 mg PO DAILY epinephrine (EpiPen 2-Jc) 0.3 mg (0.3 mL) IM Q4H PRN evolocumab (Repatha SureClick) 140 mg subcut Q2W hydrochlorothiazide 12.5 mg PO QAM lactobacillus combo no.11 (Probiotic) 1 cap PO DAILY losartan 100 mg PO DAILY metoprolol succinate ER 50 mg PO DAILY 90 days multivitamin (Daily Multi-Vitamin tablet) 1 tab PO DAILY nitroglycerin 0.4 mg sublingual PER PKG DIR PRN omeprazole 20 mg PO QAM rosuvastatin 20 mg PO DAILY simethicone (Gas Relief (simethicone)) 125 mg PO BID-QID PRN HPI Comments Details: Kiera comes for follow-up. Patient has been doing very well. She remains active in the [employer] work. She has no exertional symptoms. Denies any worsening exertional chest pain or shortness of breath. Denies any prolonged palpitation irregular heartbeat. No exertional tightness. Takes all her medications. Her last LDL was very well optimized. No orthopnea, PND, leg edema. Takes all her medications without any side effects. [facility] Medical History (Updated 03/16/25 @ 08:48 by Shai Miles MD) Paroxysmal atrial fibrillation Cataract Postmenopausal History of COVID-19 Thoracic back pain Dyspnea on exertion Former smoker, stopped smoking in distant past Right lower quadrant abdominal pain HLD (hyperlipidemia) HTN (hypertension) PVD (peripheral vascular disease) CAD (coronary artery disease) Surgical History History of lung surgery (~2022) History of esophagogastroduodenoscopy (EGD) (~2020) History of breast biopsy (~1996) History of colonoscopy (~2020) History of cardiac cath (~2019) History of cholecystectomy (~2018) Stented coronary artery (~2017) Family History Father Sudden cardiac CVD (cardiovascular disease) Mother Stroke HTN (hypertension) Myocardial infarction Social History Household Members: Spouse Housing: House Are you a primary acute care surgeon to a significant other at home: No Do you presently have visiting nurse or other home services: No Alcohol intake: current Alcohol intake frequency: holidays/special occasions only Alcohol type: wine Comment: 2 days of the week 2 glasses, last drink 2023 Patient Tobacco Use Status: Former Tobacco user Tobacco use type: Cigarette Years Smoked: quit 1983 e-Cigarette/Vaping Use: Never Used Second Hand Smoke Exposure: No service: No Current occupational status: retired Cognitive needs: No Hearing needs: No Vision needs: Yes Review of Systems Const Denies chills, Denies fatigue, Denies fever(s), Denies frequent falls, Denies weakness, Denies weight gain and Denies weight loss ENT Denies dizziness Card Denies chest pain, Denies leg edema, Denies lightheadedness, Denies palpitations, Denies dyspnea and Denies dyspnea on exertion Resp Denies cough, Denies dyspnea and Denies dyspnea on exertion GI Denies hematochezia Musc Denies abnormal gait, Denies muscle weakness, Denies numbness, Denies radiating pain into limb and Denies tingling Neuro Denies abnormal gait, Denies dizziness, Denies frequent falls, Denies numbness, Denies tingling and Denies weakness Endo Denies fatigue and Denies palpitations Physical Exam Vital Signs: Last Vital Signs Pulse 67 03/16/25 08:36 BP 110/64 03/16/25 08:36 BMI result Body Mass Index 28.0 Const General: cooperative, healthy appearing, comfortable and no acute distress Orientation/consciousness: patient oriented x3 Neck Neck: Yes normal visual inspection Resp Effort & Inspection: normal respiratory effort Auscultation: clear to auscultation bilaterally, no crackles, no rales, no rhonchi and no wheezes Cardio Jugular venous distension: no JVD Rate: regular rate Rhythm: regular rhythm Heart sounds: S1 normal heart sound present, S2 normal heart sound present, no murmurs and no rubs Neuro General: patient oriented x3 Extrem General: Yes normal to inspection, No no pedal edema and No calf tenderness Psych Appearance: grossly normal Mental Status: mental status grossly normal Speech and movement: Normal speech and movement present Assessment & Plan Assessment & Plan (1) CAD (coronary artery disease): Comment: July 2018 PCI LUPE RCA echo EF 60-65% grade 1 diastolic dysfunction, nuclear stress test normal February 2020 Code(s): I25.10 - Atherosclerotic heart disease of [place] coronary artery without angina pectoris Category: Medical Qualifiers: Coronary Disease-Associated Artery/Lesion type: [place] artery [place] vs. transplanted heart: [place] heart Associated angina: without angina Qualified Code(s): I25.10 - Atherosclerotic heart disease of [place] coronary artery without angina pectoris Plan: Patient with CAD with prior drug-eluting stent to RCA remotely without any current symptoms of angina. Given her prior coronary disease she is likely to have coronary calcification on CT scan and that finding should not be a surprise. She is currently well treated for it. She should continue aspirin for lifelong. Continue intense lipid modification with LDL currently well optimized on statin as well as Praluent therapy. Annual lipid check should be pursued. Continue participate in regular physical activity. Continue aggressive blood pressure control which is currently well optimized. Target goal blood pressure less than 130/84. Advised to monitor blood pressure at home and maintain a log. (2) SVT (supraventricular tachycardia): Code(s): I47.1 - Supraventricular tachycardia Category: Medical Plan: Prior history of SVT which has remained suppressed on metoprolol therapy. Continue the same. Avoidance of stimulants was discussed. Stress mitigation strategies were discussed. No change in therapy at this point time. Will follow up in the clinic in 1 year's time, sooner p.r.n.. Thank you for allowing me to partake in her care Coding Level of Care Code Est Pt Level 4 (92574) Complex EM visit Add On G2211 Diagnoses Coronary artery disease involving [place] coronary artery of [place] heart without angina pectoris I25.10 Coronary Disease-Associated Artery/Lesion type: [place] artery [place] vs. transplanted heart: [place] heart Associated angina: without angina SVT (supraventricular tachycardia) I47.1
--- NOTE | 2025-03-16 08:34 | MHC.OFFVIS ---
Vital Signs 03/16/25 08:36 Height 5 ft 7 in Weight 179 lb 0.246 oz BMI 28.0 Intake Visit Reasons: 6 month follow-up Allergies bee pollen (bee stings) Allergy (Severe, Verified 01/05/25 09:16) Anaphylaxis lisinopril (LISINOPRIL) Adverse Reaction (Intermediate, Verified 01/05/25 09:16) COUGH Dlgwzet-LFG-SnR Reductase Inhibitor (UYQRWTE-UUB-NJZ REDUCTASE INHIBITOR) Adverse Reaction (Intermediate, Verified 01/05/25 09:16) MUSCLE ACHES ticagrelor (Brilinta) Adverse Reaction (Intermediate, Verified 01/05/25 09:16) Shortness of Breath PFSH Medical History (Updated 01/19/25 @ 08:40 by Esvin Basilio MD) Paroxysmal atrial fibrillation Cataract Postmenopausal History of COVID-19 Thoracic back pain Dyspnea on exertion Former smoker, stopped smoking in distant past Right lower quadrant abdominal pain HLD (hyperlipidemia) HTN (hypertension) PVD (peripheral vascular disease) CAD (coronary artery disease) Surgical History History of lung surgery (~2022) History of esophagogastroduodenoscopy (EGD) (~2020) History of breast biopsy (~1996) History of colonoscopy (~2020) History of cardiac cath (~2019) History of cholecystectomy (~2018) Stented coronary artery (~2017) Family History Father Sudden cardiac CVD (cardiovascular disease) Mother Stroke HTN (hypertension) Myocardial infarction Social History Household Members: Spouse Housing: House Are you a primary critical care educator to a significant other at home: No Do you presently have visiting nurse or other home services: No Alcohol intake: current Alcohol intake frequency: holidays/special occasions only Alcohol type: wine Comment: 2 days of the week 2 glasses, last drink 2023 Patient Tobacco Use Status: Former Tobacco user Tobacco use type: Cigarette Years Smoked: quit 1983 e-Cigarette/Vaping Use: Never Used Second Hand Smoke Exposure: No service: No Current occupational status: retired Cognitive needs: No Hearing needs: No Vision needs: Yes Coding
[2025-03-16 08:36] VITALS: BP 110/64; PULSE 67; BMI 28.0
== END 2025-03-16 08:51 | disposition home or self-care (01) ==
LOC: HO.HCS 08:09
PROVIDERS: PCP Internal Medicine; Visit Provider Internal Medicine Cardiovascular Disease
DX: I25.10 Atherosclerotic heart disease of native coronary artery without angina pectoris (principal); I47.10 Supraventricular tachycardia, unspecified
CPT/HCPCS: 99214; G2211

== ENCOUNTER → 2025-03-16 08:08 | Outpatient (BNVA) | payer MEDICARE, OTHER, SELFPAY | PROVIDERS: PCP Internal Medicine; Visit Provider Internal Medicine Cardiovascular Disease | DX: I25.10 Atherosclerotic heart disease of native coronary artery without angina pectoris (principal); I47.10 Supraventricular tachycardia, unspecified | CPT/HCPCS: 99212 ==

== ENCOUNTER 2025-05-12 14:49 | Outpatient (AMB) | payer MEDICARE, OTHER, SELFPAY ==
[2025-05-12 14:56] VITALS: BP 122/68; PULSE 72; TEMP 36.1; O2SAT 98; BMI 28.2
--- NOTE | 2025-05-12 14:56 | MHC.PC.OV ---
Vital Signs 05/12/25 14:56 Height 5 ft 7 in Weight 180 lb 2 oz BMI 28.2 BP 122/68 Blood Pressure Location Lt brachial Position Sitting Pulse 72 Pulse Source Pulse Oximeter Temp 97.0 F Temp Source Temporal Artery Scan Pulse Oximetry (%) 98 Oxygen Delivery Method Room Air Intake Visit Reasons: Med follow Up Allergies bee pollen (bee stings) Allergy (Severe, Verified 05/12/25 14:59) Anaphylaxis lisinopril (LISINOPRIL) Adverse Reaction (Intermediate, Verified 05/12/25 14:59) COUGH Jqtdekb-NXQ-NuV Reductase Inhibitor (PEIPGBR-HQZ-GQC REDUCTASE INHIBITOR) Adverse Reaction (Intermediate, Verified 05/12/25 14:59) MUSCLE ACHES ticagrelor (Brilinta) Adverse Reaction (Intermediate, Verified 05/12/25 14:59) Shortness of Breath Medication List - Last Reconciled 05/12/25 by Esvin Basilio, albuterol sulfate 90 mcg/actuation 1 inh inhalation QID PRN 30 days alprazolam 0.5 mg PO BID PRN 30 days aspirin (Adult Low Dose Aspirin) 81 mg PO DAILY cetirizine 10 mg PO DAILY cholecalciferol (vitamin D3) 50 mcg PO DAILY coenzyme Q10 (CoQ-10) 100 mg PO DAILY epinephrine (EpiPen 2-Jc) 0.3 mg (0.3 mL) IM Q4H PRN evolocumab (Repatha SureClick) 140 mg subcut Q2W hydrochlorothiazide 12.5 mg PO QAM lactobacillus combo no.11 (Probiotic) 1 cap PO DAILY losartan 100 mg PO DAILY metoprolol succinate ER 50 mg PO DAILY 90 days multivitamin (Daily Multi-Vitamin tablet) 1 tab PO DAILY nitroglycerin 0.4 mg sublingual PER PKG DIR PRN omeprazole 20 mg PO QAM rosuvastatin 20 mg PO DAILY simethicone (Gas Relief (simethicone)) 125 mg PO BID-QID PRN Tobacco use date assessed: 05/12/25 Fall risk assessment: No Falls in past year Last assessed Fall Risk: 05/12/25 Dental Screening Dental Screen Date: 05/12/25 Did you have a dental visit in the last 12 months?: Yes Did you have a dental problem in the last 6 months where you did not have access to dental care?: No Was dental information given to patient?: Patient has dentist [facility] Medical History Paroxysmal atrial fibrillation Cataract Postmenopausal History of COVID-19 Thoracic back pain Dyspnea on exertion Former smoker, stopped smoking in distant past Right lower quadrant abdominal pain HLD (hyperlipidemia) HTN (hypertension) PVD (peripheral vascular disease) CAD (coronary artery disease) Surgical History History of lung surgery (~2022) History of esophagogastroduodenoscopy (EGD) (~2020) History of breast biopsy (~1996) History of colonoscopy (~2020) History of cardiac cath (~2019) History of cholecystectomy (~2018) Stented coronary artery (~2017) Family History Father Sudden cardiac CVD (cardiovascular disease) Mother Stroke HTN (hypertension) Myocardial infarction Social History Household Members: Spouse Housing: House Are you a primary respiratory care instructor to a significant other at home: No Do you presently have visiting nurse or other home services: No Alcohol intake: current Alcohol intake frequency: holidays/special occasions only Alcohol type: wine Comment: 2 days of the week 2 glasses, last drink ia2023 Patient Tobacco Use Status: Former Tobacco user Tobacco use type: Cigarette Years Smoked: quit 1983 e-Cigarette/Vaping Use: Never Used Second Hand Smoke Exposure: No service: No Current occupational status: retired Cognitive needs: No Hearing needs: No Vision needs: Yes Questionnaire PHQ-9 Over the last 2 weeks, how often have you been bothered by any of the following problems? 1. Little interest or pleasure in doing things: not at all 2. Feeling down, depressed, or hopeless: not at all 3. Trouble falling or staying asleep, or sleeping too much: several days 4. Feeling tired or having little energy: several days 5. Poor appetite or overeating: several days 6. Feeling bad about yourself - or that you are a failure or have let yourself or your family down: not at all 7. Trouble concentrating on things, such as reading the newspaper or watching television: not at all 8. Moving or speaking so slowly that other people could have noticed. Or the opposite - being so fidgety or restless that you have been moving around a lot more than usual: not at all 9. Thoughts that you would be better off or of hurting yourself in some way: not at all Total score: 3 Source: Developed by Drs. Harrison Mejia, Radha Koch, Huey Andrews and colleagues, with an educational donny from [employer]. Thrive Questionnaire Date Thrive assessed: 09/02/24 I am a: Patient What is your living situation today?: I have a steady place to live Within the past 12 months, did the food you bought not last and you didn't have the money to get more?: Never true Within the past 12 months, did you worry whether your food would run out before you got money to buy more?: Never true Do you have trouble paying for medicines?: No Do you have trouble getting transportation to medical appointments?: No Do you have trouble paying your heating and electricity bill?: No Do you have trouble taking care of your child, family member or friend?: No Do you have trouble with day-to-day activities such as bathing, preparing meals, shopping, managing finances, etc.?: No Are you currently unemployed and looking for a job?: No Are you interested in more education?: No Please select the resources that you would like help with: None Currently or been in a relationship where the following occur: No concerns reported THRIVE Score: 0 AUDIT C Alcohol Use Questionnaire (AUDIT-C) 1. How often do you have a drink containing alcohol?: Monthly or less 2. How many drinks containing alcohol do you have on a typical day when you are drinking?: 1 or 2 3. How often do you have six or more drinks on one occasion?: Never Total Score: 1 TWILA-7 AMB Questionnaire TWILA-7 Date TWILA - 7 assessed: 09/09/24 Feeling nervous, anxious, or on edge: 1 = Several days Not being able to stop or control worryin = Not at all Worrying too much about different things: 1 = Several days Trouble relaxin = Not at all Being so restless that it is hard to sit still: 0 = Not at all Becoming easily annoyed or irritable: 0 = Not at all Feeling afraid as if something awful might happen: 0 = Not at all Total TWILA-7 score (0-4 normal; 5-9 mild; 10-14 moderate; 15-21 severe): 2 Source: Developed by Drs. Harrison Mejia, Radha Koch, Huey Andrews and colleagues, with an educational donny from [employer]. Physical exam (Primary Care) Vital Signs: Last Vital Signs Temp 97.0 F 05/12/25 14:56 Pulse 72 05/12/25 14:56 BP 122/68 05/12/25 14:56 Pulse Ox 98 05/12/25 14:56 Oxygen Delivery Method Room Air 05/12/25 14:56 BMI result Body Mass Index 28.2 Tobacco/Smoking Status: Tobacco use Status Tobacco use date assessed 05/12/25 05/12/25 15:01 Patient Tobacco Use Status Former Tobacco user 05/12/25 15:01 Tobacco use type Cigarette 05/12/25 15:01 e-Cigarette/Vaping Use Never Used 05/12/25 15:01 PHQ-9: PHQ-9 Score PHQ-9: Total score 3 05/12/25 15:01 Thrive Assessment: Date of Thrive Assessment Date Thrive assessed 09/02/24 05/12/25 15:01 Currently or been in a relationship where the following occur: No concerns reported Const General: alert; No acute distress Eyes Conjunctivae: conjunctivae normal Resp Auscultation: clear to auscultation bilaterally Cardio Rate: regular rate Rhythm: regular rhythm GI Inspection: Yes normal to inspection Extrem General: Yes normal to inspection and No edema Coding Level of Care Code Est Pt Level 4 (56732) Complex EM visit Add On G2211 Diagnoses Essential hypertension I10 Hypertension type: essential hypertension Pure hypercholesterolemia E78.00 Hyperlipidemia type: pure hypercholesterolemia Coronary artery disease involving [place] coronary artery of [place] heart without angina pectoris I25.10 Coronary Disease-Associated Artery/Lesion type: [place] artery [place] vs. transplanted heart: [place] heart Associated angina: without angina Gastroesophageal reflux disease without esophagitis K21.9 Esophagitis presence: without esophagitis Generalized anxiety disorder F41.1 Emphysema lung J43.9 Assessment & Plan Assessment & Plan (1) HTN (hypertension): Code(s): I10 - Essential (primary) hypertension Category: Medical Qualifiers: Hypertension type: essential hypertension Qualified Code(s): I10 - Essential (primary) hypertension Plan: Continue with blood pressure medication. Decrease salt intake and exercise presently on hydrochlorothiazide 12.5 mg once a day losartan 100 mg once a day metoprolol 50 mg once a day (2) HLD (hyperlipidemia): Code(s): E78.5 - Hyperlipidemia, unspecified Category: Medical Qualifiers: Hyperlipidemia type: pure hypercholesterolemia Qualified Code(s): E78.00 - Pure hypercholesterolemia, unspecified Plan: Avoid fried foods, chicken skin, eggs, butter margarine, pastries and meat. Be it pork or beef they have a lot of cholesterol August 2024 last blood work on rosuvastatin 20 mg once a day and repatha. (3) CAD (coronary artery disease): Comment: July 2018 PCI LUPE RCA echo EF 60-65% grade 1 diastolic dysfunction, nuclear stress test normal February 2020 Code(s): I25.10 - Atherosclerotic heart disease of [place] coronary artery without angina pectoris Category: Medical Qualifiers: Coronary Disease-Associated Artery/Lesion type: [place] artery [place] vs. transplanted heart: [place] heart Associated angina: without angina Qualified Code(s): I25.10 - Atherosclerotic heart disease of [place] coronary artery without angina pectoris Plan: Control the cholesterol, weight, blood pressure, continue with aspirin 81 mg once a day (4) GERD (gastroesophageal reflux disease): Comment: Very pleasant, Well-controlled GERD-dietary modifications lifestyle with very good response Code(s): K21.9 - Gastro-esophageal reflux disease without esophagitis Category: Medical Qualifiers: Esophagitis presence: without esophagitis Qualified Code(s): K21.9 - Gastro-esophageal reflux disease without esophagitis Plan: Avoid the foods that causes that usually spicy foods, tomato products, juices, coffee, soda and foods that your sensitive to. After eating do not lie down, allow 3-4 hours before in lie down. And keep the head of bed above 30 degrees to avoid the acid from going up. (5) Generalized anxiety disorder: Code(s): F41.1 - Generalized anxiety disorder Category: Medical Plan: Continue with present therapy as needed (6) Emphysema lung: Code(s): J43.9 - Emphysema, unspecified Category: Medical Plan: Continue with use of albuterol as needed Plan History of Present Illness The patient is a 75-year-old female presenting with a follow-up for chronic conditions and preventative care. The patient has a history of hypercholesterolemia, managed with rosuvastatin 20 mg daily, with the last LDL cholesterol level recorded at 40 mg/dL in August 2024. Hypertension is controlled with hydrochlorothiazide, losartan, and metoprolol, with a target blood pressure of 130/84 mmHg. Coronary artery disease was diagnosed in 2018, and the patient is on lifelong aspirin therapy and cholesterol modification. The patient also takes Preluent therapy as part of the management plan. The patient has a history of chronic obstructive pulmonary disease (COPD) and bronchiectasis, for which she uses albuterol as needed. She has been evaluated by pulmonary specialists for a persistent cough. Preventative care includes a colonoscopy last performed in April 2021, a normal bone density test in October 2022, and a mammogram due in April 2024. Health Maintenance - Colonoscopy last performed in April 2021 - Bone density test normal in October 2022 - Mammogram due in April 2024 Social History Review of Systems - Respiratory: Reports cough Physical Exam Results - Labs: Normal blood count in August 2024 - Labs: Electrolytes, renal function, and blood sugar normal in December 2024 - Labs: Vitamin D, folic acid, B12, and thyroid levels within normal limits Plan Patient was informed and verbally consented to the use of an ambient scribe for clinic note documentation during this visit. 1. Hypercholesterolemia The patient is currently on rosuvastatin 20 mg daily, with the last LDL cholesterol level recorded at 40 mg/dL in August 2024. 2. Hypertension Hypertension is managed with hydrochlorothiazide, losartan, and metoprolol, aiming for a target blood pressure of 130/84 mmHg. 3. Coronary Artery Disease The patient is on lifelong aspirin therapy and cholesterol modification, with additional Preluent therapy as part of the management plan. 4. Chronic Obstructive Pulmonary Disease (Copd) The patient uses albuterol as needed and has been evaluated by pulmonary specialists for a persistent cough. 5. Gastroesophageal Reflux Disease (Gerd) The patient is advised to continue with present therapy as needed for GERD management. Discussion Notes Patient Instructions
--- OUTSIDE RECORDS SUMMARY | 2025-05-12 18:06 | XMS_ITS | Patient Health Record ---
Author Organization [facility] Address [address] [place] [address] Care Team Providers Care Golf Starter And Ranger Name Role Phone Esvin Basilio Primary Care Provider Mike Bocanegra Unavailable [phone] Reason For Referral No Information Medications Medication [...] Problem Status W/U Status Risk Notes Problem Acquired hallux rigidus (8423451) Hallux rigidus, right foot (M20.21) Active confirmed Plan Of Treatment Pending Test Test Name Order Date X ray : Foot, left 2V 01/11/2012 X ray : Foot, right 3V 03/17/[id number] TENDON SHEATH/LIGAMENT 0 03/17/2019,[id number] TENDON SHEATH/LIGAMENT 0 01/11/201244692,[id number] TENDON SHEATH/LIGAMENT 0 02/01/2012,[id number] TENDON SHEATH/LIGAMENT 1 Insurance Providers Payer Name Payer Address Payer Phone Subscriber Number Group Number Insured Name Patient Relationship to Insured Coverage Start Date Coverage End Date Medicare National Govt Svcs Inc [address] [place] [address] [id number] Kiera Lopez Self - patient is the insured 7 [employer] ([facility] [address] [place] [address] [phone] [id number] Kiera Lopez Self - patient is the insured Medical (General) History Medical History History ICD Code high blood pressure measles mumps chicken pox CAD (Cholesterol) Gall bladder problems Heart disease Reflux ( GERD) Vascular grafts Surgical History Surgery Date(Month/Year) breast biopsy Coronary artery stent 07/01/2018
--- OUTSIDE RECORDS SUMMARY | 2025-05-12 18:06 | XMS_ITS | Clinical Summary ---
Author Organization [facility] Address [address] [place] [id number] Care Team Providers Care Rubber Molder Name Role Phone Esvin Basilio MD Primary Care Provider [phone] Social History Tobacco Use Types Packs/Day Years [...] Last Done Comments Breast Cancer Screening 1950 Colorectal Cancer Screening: Colonoscopy 1950 DTaP,Tdap,and Td Vaccines (1 - Tdap) 1970 Pneumococcal Vaccine: 50+ Ye ars (1 of 1 - PCV) 2001 Zoster Vaccines (1 of 2) 2001 Falls Risk Assessment 09/04/2023 Hepatitis C Screening 09/04/2023 Osteoporosis Screening (Bone Density Screening) 09/04/2023 Social Influencers of Health Screening 09/04/2023 Depression Screening 08/06/2024 COVID-19 Vaccine ( - 2023-2 5 season) 2025 Influenza Vaccine (#1) 2025 RSV Immunization Adult [...] age to complete this topic Care Teams Rubber Molder Relationship Specialty Start Date End Date Esvin Basilio MD [address] [place] [address] Dr [address] [facility] [place] [address] PCP - General Internal Medicine 06/11/18
== END 2025-05-12 15:36 | disposition home or self-care (01) ==
LOC: HO.HMCH 14:50
PROVIDERS: PCP Internal Medicine; Visit Provider Internal Medicine
DX: I10 Essential (primary) hypertension (principal); J43.9 Emphysema, unspecified; E78.00 Pure hypercholesterolemia, unspecified; I25.10 Atherosclerotic heart disease of native coronary artery without angina pectoris; K21.9 Gastro-esophageal reflux disease without esophagitis; F41.1 Generalized anxiety disorder

== ENCOUNTER → 2025-05-12 14:49 | Outpatient (BNVA) | payer MEDICARE, OTHER, SELFPAY | PROVIDERS: PCP Internal Medicine; Visit Provider Internal Medicine | DX: I10 Essential (primary) hypertension (principal); E78.00 Pure hypercholesterolemia, unspecified; I25.10 Atherosclerotic heart disease of native coronary artery without angina pectoris; K21.9 Gastro-esophageal reflux disease without esophagitis; F41.1 Generalized anxiety disorder; J43.9 Emphysema, unspecified | CPT/HCPCS: 96127; 99212 ==

== ENCOUNTER 2025-06-15 06:05 | Outpatient (REF) | payer MEDICARE, OTHER, SELFPAY ==
--- OUTSIDE RECORDS SUMMARY | 2025-06-15 06:08 | XMS_ITS | Patient Health Record ---
Author Organization [facility] Address [address] [place] [address] Care Team Providers Care Animal Services Officer Name Role Phone Esvin Basilio Primary Care Provider Mike Bocanegra Unavailable [phone] Reason For Referral No Information Medications Medication [...] Status Risk Notes Problem Acquired hallux rigidus (1169272) Hallux rigidus, right foot (M20.21) Active confirmed Plan Of Treatment Pending Test Test Name Order Date X ray : Foot, left 2V 01/11/2012 X ray : Foot, right 3V 03/17/[id number] TENDON SHEATH/LIGAMENT 0 03/17/2019,[id number] TENDON SHEATH/LIGAMENT 0 01/11/201287232,[id number] TENDON SHEATH/LIGAMENT 0 02/01/2012,[id number] TENDON SHEATH/LIGAMENT 1 Insurance Providers Payer Name Payer Address Payer Phone Subscriber Number Group Number Insured Name Patient Relationship to Insured Coverage Start Date Coverage End Date Medicare National Govt Svcs Inc [address] [facility] [address] [id number] Kiera Lopez Self - patient is the insured 7 Robina ([facility] [address] [place] [address] [id number] Kiera Lopez Self - patient is the insured Medical (General) History Medical History History ICD Code high blood pressure measles mumps chicken pox CAD (Cholesterol) Gall bladder problems Heart disease Reflux ( GERD) Vascular grafts Surgical History Surgery Date(Month/Year) breast biopsy Coronary artery stent 07/01/2018
--- OUTSIDE RECORDS SUMMARY | 2025-06-15 06:08 | XMS_ITS | Clinical Summary ---
Author Organization [facility] Address [address] [place] [id number] Care Team Providers Care Boiler Testing Technician Name Role Phone Esvin Basilio MD Primary Care Provider [phone] Social History Tobacco Use Types Packs/Day Years [...] age to complete this topic Care Teams Boiler Testing Technician Relationship Specialty Start Date End Date Esvin Basilio MD [address] [place] [address] Dr [address] [facility] [place] [address] PCP - General Internal Medicine 06/11/18
[2025-06-15 06:32] LABS: MANUAL DIFF FLAG NO
[2025-06-15 07:45] LABS: Hematocrit 37.3 % (37.0-47.0); Hemoglobin 12.4 g/dl (12.0-16.0); Imm Gran Abs Auto 0.01 X10*3/uL (0.00-0.03); Imm Gran Pct Auto 0.2 % (0.0-0.4); Lymphocytes Absolute Auto 2.0 X10*3/uL (1.2-4.9); Mean Corpuscular HGB Conc 33.2 g/dl (31.0-35.0); Mean Corpuscular Hemoglobin 30.5 pg (27.0-33.0); Mean Corpuscular Volume 91.9 fL (80.0-98.0); NRBC Abs Auto 0.000 X10*3/uL (0.0-0.012); NRBC Pct Auto 0.0 /100WBC (0.0-0.2); Platelet Count 185 X10*3/uL (160-400); Red Blood Count 4.06 X10*6/uL (4.20-5.50); White Blood Count 5.4 X10*3/uL (4.8-10.8)
[2025-06-15 08:09] LABS: Alanine Aminotransferase 15 U/L (0-31); Albumin Level 4.3 g/dL (3.5-5.0); Alkaline Phosphatase 73 U/L (39-117); Anion Gap 11 (12-20); Aspartate Amino Transferase 23 U/L (5-31); Blood Urea Nitrogen 17 mg/dL (9-16); Calcium 9.9 mg/dL (8.4-10.2); Carbon Dioxide 29 mmol/L (22-29); Chloride 105 mmol/L (96-108); Cholesterol 123 mg/dL (<200); Estimated Glomerular Filt Rate 48; HDL Cholesterol 54 mg/dL (>40); Magnesium 1.9 mg/dL (1.6-2.6); Potassium 4.0 mmol/L (3.3-5.1); Sodium 141 mmol/L (135-145); Total Protein 6.7 g/dL (6.5-8.0); Triglycerides 59 mg/dL (<150)
[2025-06-15 08:19] LABS: Folate 14.0 ng/mL (> or = 4.0); Vitamin B12 638 pg/mL (200-900)
[2025-06-15 08:27] LABS: Free T4 (Free Thyroxine) 0.98 ng/dL (0.71-1.85); Thyroid Stimulating Hormone 3.20 uIU/mL (0.32-4.0)
== END 2025-06-15 06:06 | disposition home or self-care (01) ==
LOC: HO.LAB 06:05
PROVIDERS: PCP Internal Medicine; Visit Provider Internal Medicine
DX: I25.10 Atherosclerotic heart disease of native coronary artery without angina pectoris (principal); E78.00 Pure hypercholesterolemia, unspecified; Z13.21 Encounter for screening for nutritional disorder
CPT/HCPCS: 36415; 80053; 80061; 82306; 82607; 82746; 83735; 84439; 84443; 85025

== ENCOUNTER 2025-07-16 08:58 | Outpatient (REF) | payer MEDICARE, OTHER, SELFPAY | END 2025-07-16 08:59 | LOC: HO.LNP 08:58 | PROVIDERS: Visit Provider Student in an Organized Health Care Education/Training Program | DX: R12 Heartburn (principal) | CPT/HCPCS: 87338 ==

== ENCOUNTER 2025-08-04 14:15 | Outpatient (REF) | payer MEDICARE, OTHER, SELFPAY ==
--- NOTE | ~2025-08-04 | US_ITS ---
EXAMINATION: US KIDNEY BILATERAL HISTORY: R94.4 - Abnormal results of kidney function studies TECHNIQUE: Real-time grayscale ultrasound imaging of the kidneys was performed and images were reviewed. COMPARISON: Correlation is made with an abdominal ultrasound dated 09/06/2020. FINDINGS: Right kidney: The right kidney measures 9.8 x 4.2 x 5.3 cm. Renal parenchymal echotexture and thickness are normal. There are no masses. There is no hydronephrosis or renal calculi. Left Kidney: The left kidney measures 9.6 x 5.1 x 5.3 cm. Renal parenchymal echotexture and thickness are normal. There are no masses. There is no hydronephrosis or renal calculi. US/US renal BI IMPRESSION: Unremarkable renal ultrasound. Electronically signed by: Harrison Crouch MD 08/04/2025 02:59 PM [facility]
--- OUTSIDE RECORDS SUMMARY | 2025-08-04 18:01 | XMS_ITS | Clinical Summary ---
Author Organization [facility] Address [address] [place] [phone] Care Team Providers Care Machine Repairman Name Role Phone Esvin Basilio MD Primary Care Provider [phone] Social History Tobacco Use Types Packs/Day Years Used Date Smoking Tobacco: Former Smokeless Tobacco: Never Comments Unknown Sex and Gender Information Value Date Recorded Sex Assigned at Not on file Legal Sex Female 4:04 PM EST Gender Identity Not on file Sexual Orientation Not on file Last Filed Vital Signs Vital Sign Reading [...] Screening 09/04/2023 Depression Screening 08/06/2024 COVID-19 Vaccine (1 - 2024-2 6 season) 2025 Influenza Vaccine (#1) 2025 RSV [...] age to complete this topic Care Teams Machine Repairman Relationship Specialty Start Date End Date Esvin Basilio MD [address] [place] [address] [address] [facility] [place] [address] PCP - General Internal Medicine 06/11/18
--- OUTSIDE RECORDS SUMMARY | 2025-08-04 18:01 | XMS_ITS | Patient Health Record ---
Author Organization [facility] Address [address] [facility] [place] [address] Care Team Providers Care Teacher Of The Handicapped Name Role Phone Esvin Basilio Primary Care Provider Mike Bocanegra Unavailable [phone] Reason For Referral No Information Medications Medication [...] Status Risk Notes Problem Acquired hallux rigidus (4944256) Hallux rigidus, right foot (M20.21) Active confirmed Plan Of Treatment Pending Test Test Name Order Date X ray : Foot, left 2V 01/11/2012 X ray : Foot, right 3V 03/17/[id number] TENDON SHEATH/LIGAMENT 0 03/17/2019,[id number] TENDON SHEATH/LIGAMENT 0 01/11/201280822,[id number] TENDON SHEATH/LIGAMENT 0 02/01/2012,[id number] TENDON SHEATH/LIGAMENT 1 Insurance Providers Payer Name Payer Address Payer Phone Subscriber Number Group Number Insured Name Patient Relationship to Insured Coverage Start Date Coverage End Date Medicare National Govt Svcs Inc [address] [place] [address] [id number] Kiera Lopez Self - patient is the insured 7 Robina ([facility] [address] [place] [address] [phone] [id number] Kiera Lopez Self - patient is the insured Medical (General) History Medical History History ICD Code high blood pressure measles mumps chicken pox CAD (Cholesterol) Gall bladder problems Heart disease Reflux ( GERD) Vascular grafts Surgical History Surgery Date(Month/Year) breast biopsy Coronary artery stent 07/01/2018
== END 2025-08-04 14:16 | disposition home or self-care (01) ==
LOC: HO.US 14:15
PROVIDERS: PCP Internal Medicine; Visit Provider Student in an Organized Health Care Education/Training Program
DX: R94.4 Abnormal results of kidney function studies (principal)
CPT/HCPCS: 76775

== ENCOUNTER → 2025-08-04 14:16 | Outpatient (BNV) | payer MEDICARE, OTHER, SELFPAY | PROVIDERS: PCP Internal Medicine; Visit Provider Radiology Diagnostic Radiology | DX: R94.4 Abnormal results of kidney function studies (principal) | CPT/HCPCS: 76775 ==